=== PATIENT | female | born 1950 | race Caucasian/White ===

== ENCOUNTER 2018-11-15 14:10 | Emergency (ER) | payer MEDICARE ==
--- NOTE | 2018-11-15 15:17 | ER Document Report ---
ED Medical Screen (RME) - General Chief Complaint: Fall Injury Stated Complaint: FALL/HEAD INJURY Time Seen by Provider: 11/15/18 15:06 Notes: Patient is a 68-year-old female presents to the emergency department after a syncopal episode. Patient states she feels as though her sugar was dropping. States she did take her glucose tablets and was attempting to go eat lunch. States when she stood she felt very lightheaded and dizzy. States she did have a complete syncopal episode lasting "only a couple of seconds." Patient states she was at [facility] when this happened and a coworker states she did hit the left side of her head when she fell from standing height onto tile ground. Patient states staff gave her orange juice and some crackers. States she did take her blood sugar and it was 144. States she attempted to go to her primary care doctor who told her to come to the emergency room. Patient is denying any chest pain or shortness of breath. States she feels as though she needs to eat something because she feels very weak. Accu-Chek ordered. GENERAL: Alert, interacts well. No acute distress. HEAD: Normocephalic, atraumatic. NECK: Full range of motion. Supple. Trachea midline. No cervical midline tenderness noted I have greeted and performed a rapid initial assessment of this patient. A comprehensive ED assessment and evaluation of the patient, analysis of test results and completion of the medical decision making process will be conducted by additional ED providers. I have specifically instructed the patient or family members with the patient to immediately return to any nursing staff should anything change in the patient's condition or with their chief complaint. This medical record was dictated with voice recognizing software. There may be grammatical, syntax errors that are unintended. TRAVEL OUTSIDE OF THE [place] IN LAST 30 DAYS: No - Related Data Allergies/Adverse Reactions: No Known Allergies Allergy (Verified 11/15/18 14:11) Past Medical History - Social History Frequency of alcohol use: None Drug Abuse: None - Past Medical History Cardiac Medical History: Reports: Hx Hypertension Endocrine Medical History: Reports: Hx Diabetes Mellitus Type 2 Renal/ Medical History: Denies: Hx Peritoneal Dialysis Past Surgical History: Reports: Hx Hysterectomy, Hx Orthopedic Surgery Physical Exam - Vital signs Vitals: Temp Pulse Resp BP Pulse Ox 98.3 F 74 16 198/64 H 96 11/15/18 14:18 11/15/18 14:18 11/15/18 14:18 11/15/18 14:18 11/15/18 14:18 Course - Vital Signs Vital signs: Temp Pulse Resp BP Pulse Ox 98.3 F 74 16 198/64 H 96 11/15/18 14:18 11/15/18 14:18 11/15/18 14:18 11/15/18 14:18 11/15/18 14:18
--- NOTE | 2018-11-15 15:56 | RADIOLOGY REPORT (SQ) ---
EXAM DESCRIPTION: CT HEAD WITHOUT COMPLETED DATE/TIME: 11/15/2018 3:46 pm REASON FOR STUDY: fall COMPARISON: None. TECHNIQUE: Axial images acquired through the brain without intravenous contrast. Images reviewed wi th bone, brain and subdural windows. Additional sagittal and coronal reconstructions were generated. Images stored on PACS. All CT scanners at this facility use dose modulation, iterative reconstruction, and/or weight based d osing when appropriate to reduce radiation dose to as low as reasonably achievable (ALARA). [facility]: Dose Right [facility]: CareDose [facility]: Dose Right [facility]: Teradose 4D [facility]: Sportsy RADIATION DOSE: CT Rad equipment meets quality standard of care and radiation dose reduction techniq ues were employed. CTDIvol: 53.2 mGy. DLP: 937 mGy-cm. mGy. LIMITATIONS: None. FINDINGS: VENTRICLES: Normal size and contour. CEREBRUM: No masses. No hemorrhage. No midline shift. No evidence for acute infarction. Normal gra y/white matter differentiation. Trace periventricular hypoattenuation likely represents early chroni c microvascular ischemic injuries. CEREBELLUM: No masses. No hemorrhage. No alteration of density. No evidence for acute infarction. EXTRAAXIAL SPACES: No fluid collections. No masses. ORBITS AND GLOBE: No intra- or extraconal masses. Normal contour of globe without masses. CALVARIUM: No fracture. PARANASAL SINUSES: No fluid or mucosal thickening. SOFT TISSUES: No mass or hematoma. OTHER: Atherosclerotic vascular calcifications are seen within the cavernous segments of the internal carotid arteries. IMPRESSION: No evidence of calvarial injury or intracranial hemorrhage. Likely early microvascular ischemic injury. EVIDENCE OF ACUTE STROKE: NO. COMMENT: Quality ID # [id number]: Final reports with documentation of one or more dose reduction techniques (e.g., Automated exposure control, adjustment of the mA and/or kV according to patient size, use of iterative reconstruction technique) TECHNICAL DOCUMENTATION: JOB ID: [id number] [employer]- All Rights Reserved Reading location - IP/workstation name: [email or web address]
--- NOTE | 2018-11-15 15:58 | RADIOLOGY REPORT (SQ) ---
EXAM DESCRIPTION: CT CERVICAL SPINE WITHOUT COMPLETED DATE/TIME: 11/15/2018 3:46 pm REASON FOR STUDY: fall COMPARISON: None. TECHNIQUE: Axial images acquired through the cervical spine without intravenous contrast. Images re viewed with lung, soft tissue and bone windows. Reconstructed coronal and sagittal MPR images review ed. Images stored on PACS. All CT scanners at this facility use dose modulation, iterative reconstruction, and/or weight based d osing when appropriate to reduce radiation dose to as low as reasonably achievable (ALARA). [facility]: Dose Right [facility]: CareDose [facility]: Dose Right [facility]: Teradose 4D [facility]: [employer] RADIATION DOSE: CT Rad equipment meets quality standard of care and radiation dose reduction techniq ues were employed. CTDIvol: 16.3 mGy. DLP: 323 mGy-cm. mGy. LIMITATIONS: None. FINDINGS: ALIGNMENT: Anatomic. MINERALIZATION: Normal. VERTEBRAL BODIES: No fractures or dislocation. Mild uncovertebral hypertrophy is seen predominantly at the C4/5 and C6/7 levels. DISCS: Trace marginal osteophytes are seen without significant loss of intervertebral disc height. FACETS, LATERAL MASSES, POSTERIOR ELEMENTS: No fractures. No dislocation. No acute findings. HARDWARE: None in the spine. VISUALIZED RIBS: No fractures. LUNG APICES AND SOFT TISSUES: No significant or acute findings. OTHER: No other significant finding. IMPRESSION: No evidence of acute osseous injury. Trace multilevel spondylotic changes. TECHNICAL DOCUMENTATION: JOB ID: [id number] Quality ID # [id number]: Final reports with documentation of one or more dose reduction techniques (e.g., Au tomated exposure control, adjustment of the mA and/or kV according to patient size, use of iterative reconstruction technique) 2010 [employer]- All Rights Reserved Reading location - IP/workstation name: [email or web address]
[2018-11-15 16:31] LABS: ABSOLUTE BASOPHILS # (AUTO) 0.1 10^3/uL (0.0-0.2); ABSOLUTE EOSINOPHILS # (AUTO) 0.2 10^3/uL (0.0-0.6); ABSOLUTE LYMPHOCYTES (AUTO) 4.2 10^3/uL (0.5-4.7); ABSOLUTE MONOCYTES (AUTO) 0.6 10^3/uL (0.1-1.4); ABSOLUTE NEUT (AUTO) 7.5 10^3/uL (1.7-8.2); BASOPHILS % (AUTO) 0.6 % (0-2); EOSINOPHILS % (AUTO) 1.8 % (0-6); HEMATOCRIT 36.9 % (36.0-47.0); HEMOGLOBIN 12.3 g/dL (12.0-15.5); LYMPHOCYTES % (AUTO) 33.2 % (13-45); MEAN CORPUSCULAR HEMOGLOBIN 31.9 pg (27.0-33.4); MEAN CORPUSCULAR HGB CONC 33.4 g/dL (32.0-36.0); MEAN CORPUSCULAR VOLUME 96 fl (80-97); MONOCYTES % (AUTO) 4.8 % (3-13); PLATELET COUNT 206 10^3/uL (150-450); RED BLOOD COUNT 3.86 10^6/uL (3.72-5.28); RED CELL DISTRIBUTION WIDTH 13.5 % (11.5-14.0); SEGMENTED NEUTROPHILS % (AUTO) 59.6 % (42-78); TOTAL CELLS COUNTED % (AUTO) 100 %; WHITE BLOOD COUNT 12.6 10^3/uL (4.0-10.5)
[2018-11-15 16:46] LABS: ALANINE AMINOTRANSFERASE 36 U/L (9-52); ALBUMIN 4.7 g/dL (3.5-5.0); ALKALINE PHOSPHATASE 71 U/L (38-126); ANION GAP 7 (5-19); ASPARTATE AMINO TRANSFERASE 32 U/L (14-36); BILIRUBIN,DIRECT 0.3 mg/dL (0.0-0.4); BILIRUBIN,TOTAL 0.4 mg/dL (0.2-1.3); BLOOD UREA NITROGEN 17 mg/dL (7-20); CARBON DIOXIDE 29 mmol/L (22-30); CHLORIDE 102 mmol/L (98-107); POTASSIUM 4.4 mmol/L (3.6-5.0); SODIUM 138.2 mmol/L (137-145); TOTAL PROTEIN 7.6 g/dL (6.3-8.2)
[2018-11-15 16:50] LABS: GLUCOSE 56 mg/dL (75-110)
[2018-11-15 17:30] LABS: APPEARANCE,URINE CLEAR; BILIRUBIN,URINE NEGATIVE (NEGATIVE); COLOR,URINE COLORLESS; GLUCOSE, URINE NEGATIVE (NEGATIVE); KETONES,URINE NEGATIVE (NEGATIVE); LEUKOCYTE ESTERASE,URINE NEGATIVE (NEGATIVE); NITRITE,URINE NEGATIVE (NEGATIVE); PROTEIN,URINE NEGATIVE (NEGATIVE); URINE SPECIFIC GRAVITY 1.004; UROBILINOGEN,URINE NEGATIVE mg/dL (<2.0)
--- NOTE | 2018-11-15 18:11 | ER Document Report ---
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 She took a glucose tablet. But then passed out. The patient came back to and was given orange juice and peanut butter cups and food and blood sugar is come up the patient thinks she may have hit her head. She was brought in for evaluation blood sugar still little low here we did give her food and she is feeling better denies chest pain denies shortness of breath denies headache denies extremity numbness tingling or weakness. TRAVEL OUTSIDE OF THE [place] IN LAST 30 DAYS: No - Related Data Allergies/Adverse Reactions: No Known Allergies Allergy (Verified 11/15/18 14:11) Past Medical History - Social History Smoking Status: Current Every Day Smoker Frequency of alcohol use: None Drug Abuse: None Family History: None Patient has suicidal ideation: No Patient has homicidal ideation: No - Past Medical History Cardiac Medical History: Reports: Hx Hypertension Endocrine Medical History: Reports: Hx Diabetes Mellitus Type 2 Renal/ Medical History: Denies: Hx Peritoneal Dialysis Past Surgical History: Reports: Hx Hysterectomy, Hx Orthopedic Surgery Review of Systems - Review of Systems Constitutional: denies: Chills, Fever Cardiovascular: Syncope. denies: Chest pain, Dyspnea, Edema Gastrointestinal: denies: Abdominal pain, Nausea, Vomiting Genitourinary: denies: Dysuria Musculoskeletal: denies: Muscle stiffness Neurological/Psychological: denies: Headaches, Tingling -: Yes All other systems reviewed and negative Physical Exam - Vital signs Vitals: Temp Pulse Resp BP Pulse Ox 98.3 F 74 16 198/64 H 96 11/15/18 14:18 11/15/18 14:18 11/15/18 14:18 11/15/18 14:18 11/15/18 14:18 - Notes Notes: GENERAL_APPEARANCE: well_nourished, alert, cooperative, no_acute_distress, no_obvious_discomfort. VITALS: reviewed, see vital signs table. HEAD: Left occiput no obvious hematoma but tender to touch no depressions EYES: PERRL, EOMI, conjunctiva_clear. NOSE: no_nasal_discharge. MOUTH: (-)decreased moisture. THROAT: no_tonsilar_inflammation, no_airway_obstruction. no_lymphadenopathy NECK: supple, no_neck_tenderness, (-)thyromegaly. BACK: no_back_tenderness. CHEST_WALL: no_chest_tenderness. LUNGS: no_wheezing, no_rales, no_rhonchi, (-)accessory muscle use, good air exchange bilateral. HEART: normal_rate, normal_rhythm, normal_S1, normal_S2, (-)S3, (-)S4, no_murmur, no_rub. ABDOMEN: normal_BS, soft, no_abd_tenderness, (-)guarding, (-)rebound, no _organomegaly, no_abd_masses. EXTREMITIES: good pulses in all_extremities, no_swelling\tenderness in the extremities, no_edema. SKIN: warm, dry, good_color, no_rash. MENTAL_STATUS: speech_clear, oriented_X_3, normal_affect, responds_appropriately to questions. NEURO: Neg Motor or Sensory Deficits on exam, CN 2-12 intact, DTR 2+ symmetric x 4, No cerbellar signs Course - Re-evaluation Re-evalutation: 11/15/18 18:09 Patient was brought in for an episode of syncope after low blood sugar. Her blood sugars up it was a little low here and we fed her and she is doing well. She is feeling better asking to go home we did scan her head neck and it was negative. Blood work other than a low blood sugar is negative there is no signs of any secondary infections. Patient states she has an appointment coming up next week with her primary she wants to go home she is noticed her blood pressure been a little high but that does not bother her. We spoke at length and she is very comfortable going home. - Vital Signs Vital signs: Temp Pulse Resp BP Pulse Ox 98.3 F 74 16 198/64 H 96 11/15/18 14:18 11/15/18 14:18 11/15/18 14:18 11/15/18 14:18 11/15/18 14:18 - Laboratory Result Diagrams: 11/15/18 15:50 11/15/18 15:50 Laboratory results interpreted by me: 11/15/18 11/15/18 15:50 15:50 WBC 12.6 H Glucose 56 L - Diagnostic Test Radiology reviewed: Reports reviewed Radiology results interpreted by me: 11/15/18 18:[address] 11/15/18 15:14 IMPRESSION: No evidence of acute osseous injury. Trace multilevel spondylotic changes. Head CT 11/15/18 15:14 IMPRESSION: No evidence of calvarial injury or intracranial hemorrhage. Likely early microvascular ischemic injury. EVIDENCE OF ACUTE STROKE: NO. - EKG Interpretation by [facility] EKG shows normal: Sinus rhythm Rate: Normal Rhythm: NSR Discharge - Discharge Clinical Impression: Hypoglycemia Syncope Qualifiers: Syncope type: unspecified Qualified Code(s): R55 - Syncope and collapse Disposition: HOME, SELF-CARE Instructions: Hypoglycemia Diet ([facility]), Hypoglycemia ([facility]), Head Injury Precauti ons ([facility]) Referrals: TINA BOYKIN FNP [Primary Care Provider] - Follow up as needed
[2018-11-15 18:31] VITALS: BP 191/57
--- NOTE | 2018-11-16 09:31 | EKG REPORT ---
SEVERITY:- BORDERLINE ECG - SINUS RHYTHM BORDERLINE T WAVE ABNORMALITIES : Confirmed by: Theresa Ayon MD 16-Nov-2018 09:30:40
== END 2018-11-15 18:25 | disposition home or self-care (01) ==
LOC: ER 14:10
DX: E11.649 Type 2 diabetes mellitus with hypoglycemia without coma (principal); R55 Syncope and collapse; F17.200 Nicotine dependence, unspecified, uncomplicated; I10 Essential (primary) hypertension
CPT/HCPCS: 36415; 70450; 72125; 80053; 81001; 82962; 84484; 85025; 93005; 93010; 99284

== ENCOUNTER 2019-09-09 14:52 | Inpatient (IN) | payer MEDICARE ==
[~2019-09-09 14:52] MED LIST: ROCURONIUM BROMIDE INJ 50 MG/5 ML VIAL IV ONE
[2019-09-09] MEDS ORDERED: ONDANSETRON HCL INJ/PF 4 MG/2 ML SDV IV ONE (15:00)
[2019-09-09] MEDS ORDERED: NORMAL SALINE 1000 ML 1,000 ML IV ONE (15:00)
--- NOTE | 2019-09-09 15:02 | ER Document Report ---
ED Medical Screen (RME) - General Stated Complaint: VOMITTING Time Seen by Provider: 09/09/19 14:57 Primary Care Provider: TINA BOYKIN FNP [Primary Care Provider] - Follow up as needed Mode of Arrival: Wheelchair Information source: Patient Notes: 69-year-old female patient presents emergency department chief complaint of epigastric pain with vomiting. Patient reports symptoms ongoing for the last 3 days. She reports that she has not had any diarrhea or fever. No recent travel or exposure to COVID-19 patients. Patient states she went to see the title department manager this morning, he scheduled her for an endoscopy next week but told her to come to the emergency department today. Patient is calm, cooperative, appears mildly uncomfortable. I have greeted and performed a rapid initial assessment of this patient. A comprehensive ED assessment and evaluation of the patient, analysis of test results and completion of the medical decision making process will be conducted by additional ED providers. I have specifically instructed the patient or family members with the patient to immediately return to any nursing staff should anything change in the patient's condition or with their chief complaint. TRAVEL OUTSIDE OF THE [place] IN LAST 30 DAYS: No - Related Data Allergies/Adverse Reactions: No Known Allergies Allergy (Verified 11/15/18 14:11) Past Medical History - Past Medical History Cardiac Medical History: Reports: Hx Hypertension Endocrine Medical History: Reports: Hx Diabetes Mellitus Type 2 Renal/ Medical History: Denies: Hx Peritoneal Dialysis Past Surgical History: Reports: Hx Hysterectomy, Hx Orthopedic Surgery Doctor's Discharge - Discharge Referrals: TINA BOYKIN FNP [Primary Care Provider] - Follow up as needed
--- NOTE | 2019-09-09 15:15 | ER Document Report ---
ED General - General Chief Complaint: Nausea/Vomiting Stated Complaint: VOMITTING Time Seen by Provider: 09/09/19 14:57 Mode of Arrival: Wheelchair Information source: Patient TRAVEL OUTSIDE OF THE [place] IN LAST 30 DAYS: No - HPI Onset: Other - 4-5 days ago Onset/Duration: Gradual Quality of pain: Fullness, Sharp Severity: Severe Associated symptoms: Nausea, Vomiting Exacerbated by: Food Relieved by: Denies Similar symptoms previously: No Recently seen / treated by doctor: Yes - patient had a virtual GI appointment today Notes: 69 year old female with a history of Symptomatic Bradycardia s/p Pacemaker, HTN, DM here in the ER for epigastric and RUQ abdominal pain for the last 4-5 days with associated nausea and vomiting. The patient says food of any kind makes the pain worse. The patient had a virtual appointment with a GI Doctor today and she apparently is going to have an endoscopy next week. The patient says she has been using Aleve to try and help her pain but she hasnt gotten much relief. The patient has noticed black stools over the last several days but no black colored vomit. - Related Data Allergies/Adverse Reactions: No Known Allergies Allergy (Verified 09/09/19 15:02) Past Medical History - General Information source: Patient - Social History Smoking Status: Current Every Day Smoker Chew tobacco use (# tins/day): No Frequency of alcohol use: None Drug Abuse: None Family History: None Patient has suicidal ideation: No Patient has homicidal ideation: No - Past Medical History Cardiac Medical History: Reports: Hx Hypertension Endocrine Medical History: Reports: Hx Diabetes Mellitus Type 2 Renal/ Medical History: Denies: Hx Peritoneal Dialysis Past Surgical History: Reports: Hx Hysterectomy, Hx Orthopedic Surgery Review of Systems - Review of Systems Constitutional: No symptoms reported EENT: No symptoms reported Cardiovascular: No symptoms reported Respiratory: No symptoms reported Gastrointestinal: Abdominal pain, Nausea, Vomiting, Black stools Genitourinary: No symptoms reported Female Genitourinary: No symptoms reported Musculoskeletal: No symptoms reported Skin: No symptoms reported Hematologic/Lymphatic: No symptoms reported Neurological/Psychological: No symptoms reported -: Yes All other systems reviewed and negative Physical Exam - Vital signs Vitals: Temp Pulse Resp BP Pulse Ox 97.9 F 98 17 117/101 H 100 09/09/19 15:02 09/09/19 15:02 09/09/19 15:02 09/09/19 15:02 09/09/19 15:02 - Notes Notes: GENERAL: Well-appearing, well-nourished and in no acute distress. HEAD: Atraumatic, normocephalic. EYES: Pupils equal round and reactive to light, extraocular movements intact, sclera anicteric, conjunctiva are normal. ENT: External ears normal in appearance, nares patent, oropharynx clear without exudates. Moist mucous membranes. NECK: Normal range of motion, supple without lymphadenopathy or JVD. LUNGS: Breath sounds clear to auscultation bilaterally and equal. No wheezes rales or rhonchi. HEART: Regular rate and rhythm without murmurs, rubs or gallops. ABDOMEN: Soft, moderate epigastric tenderness, mild RUQ tenderness, normoactive bowel sounds. No guarding, no rebound. No masses appreciated. EXTREMITIES: Normal range of motion, no pitting or edema. No clubbing or cyan osis. NEUROLOGICAL: Cranial nerves II through XII grossly intact. Normal speech, normal gait. PSYCH: Normal mood, normal affect. SKIN: Warm, Dry, normal turgor, no rashes or lesions noted. Course - Re-evaluation Re-evalutation: 09/09/19 16:42 The patient came to the ER for significant epigastric pain. Her hemoglobin is 6.0 when it was 12 a year ago. She is also having black colored stools. The patient likely has an Ulcer with an upper GI Bleed. Dr. Garnica or General Surgery was consulted and he will see the patient in the ER. Dr. Johnston would like the patient to have an NG tube placed and to have 1L of lavage. Will also start patient on Protonix and transfuse blood. Plan for admission to Hospitalist. 09/09/19 17:01 The patient is short of breath and she will destat with minor exertion. Patient is still having epigastric abdominal pain. Dr. Johnston is at the bedside and he would like one of the units of blood that was previously ordered be immediate release blood due to patient's increased work of breathing. Will also order an EKG and Trop although this pain is likely to be from an ulcer/GERD/esophagitis 09/09/19 17:40 Patient had a stat chest xray showing diffuse (worse on right) pulmonary disease. Patient becoming hypertensive as well. Seem like patient could have had flash pulmonary edema. EKG shows a paced rhythm. NSTEMI also possible. COVID had no previously been thought of as a diagnosis given she came to the ER for abdominal pain. Patient's breathing has been worsening despite getting emergency release blood x 2 units. 09/09/19 18:06 Dr. Dawn of the ICU is in the ER and he is concerned the patient has an atypical presentation of COVID. Dr. Dawn is going to intubate the patient here in the ER. Patient will be admitted to the ICU. Care is still ongoing. This would be a very atypicla presentation of COVID given the patient has been having epigastric pain for 4-5 days and she came to the ER for epigastric pain along with nausea and vomiting and she endorsed black stools and she was found to be severely anemic. 09/09/19 19:00 Patient's Trop came back elevated at 2.8 and her BNP is in the 6000s. Patient seems like she had a coronary event and flash pulmonary edema. Patient is going to get a CTA abd/pelvis to look for an upper GI bleed distal to the duodenum. Dr. Dawn is admitting the patient to the ICU still. Patient unlikely has a primary cardiac event although she has a paced rhythm so her EKG is not of much use. - Vital Signs Vital signs: Temp Pulse Resp BP Pulse Ox 97.9 F 98 19 117/101 H 94 09/09/19 15:02 09/09/19 15:02 09/09/19 18:05 09/09/19 15:02 09/09/19 18:05 - Laboratory Result Diagrams: 09/09/19 15:52 09/09/19 15:52 Laboratory results interpreted by me: 09/09/19 09/09/19 09/09/19 15:52 15:52 16:39 WBC 17.4 H RBC 2.27 L Hgb 6.0 L Hct 18.6 L MCH 26.5 L RDW 17.8 H Lymph % (Auto) 10.4 L Absolute Neuts (auto) 14.8 H Seg Neutrophils % 84.8 H Carbonic Acid ABG pH ABG pCO2 ABG pO2 ABG HCO3 ABG Total CO2 ABG O2 Saturation Sodium 129.3 L Chloride 91 L BUN 30 H Est GFR ( Amer) 52 L Est GFR (MDRD) Non-Af 43 L Glucose 115 H Lactic Acid AST 50 H C-Reactive Protein NT-Pro-B Natriuret Pep Crossmatch See Detail 09/09/19 09/09/19 09/09/19 17:51 17:51 17:51 WBC RBC Hgb Hct MCH RDW Lymph % (Auto) Absolute Neuts (auto) Seg Neutrophils % Carbonic Acid ABG pH ABG pCO2 ABG pO2 ABG HCO3 ABG Total CO2 ABG O2 Saturation Sodium Chloride BUN Est GFR ( Amer) Est GFR (MDRD) Non-Af Glucose Lactic Acid 12.7 H AST C-Reactive Protein 11.6 H NT-Pro-B Natriuret Pep 6880 H Crossmatch 09/09/19 17:51 WBC RBC Hgb Hct MCH RDW Lymph % (Auto) Absolute Neuts (auto) Seg Neutrophils % Carbonic Acid 1.65 H ABG pH 7.02 L* ABG pCO2 54.7 H ABG pO2 166.7 H ABG HCO3 13.8 L ABG Total CO2 15.5 L ABG O2 Saturation 98.2 H Sodium Chloride BUN Est GFR ( Amer) Est GFR (MDRD) Non-Af Glucose Lactic Acid AST C-Reactive Protein NT-Pro-B Natriuret Pep Crossmatch - Diagnostic Test Radiology reviewed: Image reviewed, Reports reviewed - EKG Interpretation by Md EKG shows normal: [place] Rate: Normal Rhythm: Other - Paced Additional EKG results interpreted by me: 09/09/19 19:02 EKG shows paced rhythm Critical Care Note - Critical Care Note Total time excluding time spent on procedures (mins): 75 Discharge - Discharge Clinical Impression: Epigastric abdominal pain, Hypoxemia GI bleed Qualifiers: GI bleed type/associated pathology: unspecified gastrointestinal hemorrhage type Qualified Code(s): K92.2 - Gastrointestinal hemorrhage, unspecified Anemia Qualifiers: Anemia type: unspecified type Qualified Code(s): D64.9 - Anemia, unspecified Condition: Critical Disposition: ADMITTED INPATIENT Admitting Provider: Matty (Vice President [employer]) Unit Admitted: ICU
[2019-09-09] MEDS ORDERED: KETOROLAC TROMETHAMINE INJ/PF 30 MG/1 ML SDV IV ONE (15:46)
[2019-09-09 16:03] LABS: ABSOLUTE BASOPHILS # (AUTO) 0.1 10^3/uL (0.0-0.2); ABSOLUTE LYMPHOCYTES (AUTO) 1.8 10^3/uL (0.5-4.7); ABSOLUTE MONOCYTES (AUTO) 0.7 10^3/uL (0.1-1.4); ABSOLUTE NEUT (AUTO) 14.8 10^3/uL (1.7-8.2); BASOPHILS % (AUTO) 0.4 % (0-2); EOSINOPHILS % (AUTO) 0.1 % (0-6); HEMATOCRIT 18.6 % (36.0-47.0); LYMPHOCYTES % (AUTO) 10.4 % (13-45); MEAN CORPUSCULAR HEMOGLOBIN 26.5 pg (27.0-33.4); MEAN CORPUSCULAR HGB CONC 32.4 g/dL (32.0-36.0); MEAN CORPUSCULAR VOLUME 82 fl (80-97); MONOCYTES % (AUTO) 4.3 % (3-13); PLATELET COUNT 420 10^3/uL (150-450); RED BLOOD COUNT 2.27 10^6/uL (3.72-5.28); RED CELL DISTRIBUTION WIDTH 17.8 % (11.5-14.0); SEGMENTED NEUTROPHILS % (AUTO) 84.8 % (42-78); TOTAL CELLS COUNTED % (AUTO) 100 %; WHITE BLOOD COUNT 17.4 10^3/uL (4.0-10.5)
[2019-09-09 16:18] LABS: ALBUMIN 4.4 g/dL (3.5-5.0); ALKALINE PHOSPHATASE 79 U/L (38-126); ANION GAP 13 (5-19); ASPARTATE AMINO TRANSFERASE 50 U/L (14-36); BILIRUBIN,TOTAL 0.5 mg/dL (0.2-1.3); BLOOD UREA NITROGEN 30 mg/dL (7-20); CALCIUM 9.2 mg/dL (8.4-10.2); CARBON DIOXIDE 25 mmol/L (22-30); CHLORIDE 91 mmol/L (98-107); GLUCOSE 115 mg/dL (75-110); TOTAL PROTEIN 7.1 g/dL (6.3-8.2)
[2019-09-09] MEDS ORDERED: NORMAL SALINE 250 ML IV PRN ×2 (16:21→17:50)
[2019-09-09] MEDS ORDERED: PANTOPRAZOLE SODIUM 40 MG VIAL IV ONE (16:24)
--- NOTE | 2019-09-09 16:29 | RADIOLOGY REPORT (SQ) ---
EXAM DESCRIPTION: U/S ABDOMEN LIMITED W/O DOP IMAGES COMPLETED DATE/TIME: 09/09/2019 4:20 pm REASON FOR STUDY: rule out cholecystitis. pain in RUQ and epigastric COMPARISON: None. TECHNIQUE: Dynamic and static grayscale images acquired of the abdomen and recorded on PACS. Additio nal selected color Doppler and spectral images recorded. LIMITATIONS: None. FINDINGS: PANCREAS: No masses. Visualized pancreatic duct normal caliber. LIVER: No masses. Echotexture normal. LIVER VASCULATURE: Normal directional flow of the main portal vein and hepatic veins. GALLBLADDER: No stones. Normal wall thickness. No pericholecystic fluid. ULTRASOUND-DETECTED CROWLEY'S SIGN: Negative. INTRAHEPATIC DUCTS AND COMMON DUCT: CBD and intrahepatic ducts normal caliber. No filling defects. AORTA: VISUALIZED PORTIONS THE ABDOMINAL AORTA ARE NORMAL IN CALIBER. RIGHT KIDNEY: Normal size. Normal echogenicity. No solid or suspicious masses. No hydronephrosis. No calcifications. PERITONEAL AND RIGHT PLEURAL SPACE: No ascites or effusions. OTHER: No other significant findings. IMPRESSION: NORMAL RIGHT UPPER QUADRANT ULTRASOUND. TECHNICAL DOCUMENTATION: JOB ID: [id number] [employer]- All Rights Reserved Reading location - IP/workstation name: [email or web address]
[2019-09-09] MEDS: PANTOPRAZOLE SODIUM 40 MG VIAL IV PRN (17:12)
--- NOTE | 2019-09-09 17:22 | RADIOLOGY REPORT (SQ) ---
EXAM DESCRIPTION: KUB/ABDOMEN (SINGLE VIEW) IMAGES COMPLETED DATE/TIME: 09/09/2019 5:04 pm REASON FOR STUDY: post NG tube to check for placement COMPARISON: None. NUMBER OF VIEWS: One view. TECHNIQUE: Supine radiographic image of the abdomen acquired. LIMITATIONS: None. FINDINGS: BOWEL GAS PATTERN: Normal bowel gas pattern. No dilated loops. CALCIFICATIONS: No suspicious calcifications. SOFT TISSUES: No gross mass or suggestion of organomegaly. HARDWARE: Nasogastric tube tip is in the stomach. Coiled in the fundus. BONES: No acute fracture. No worrisome bone lesions. OTHER: No other significant finding. IMPRESSION: Nasogastric tube tip is in the stomach. TECHNICAL DOCUMENTATION: JOB ID: [id number] 2010 [employer]- All Rights Reserved Reading location - IP/workstation name: [email or web address]
[2019-09-09 17:32] LABS: PROTHROMBIN TIME 15.3 SEC (11.4-15.4)
[2019-09-09] MEDS ORDERED: ETOMIDATE INJ/PF 20 MG/10 ML SDV IV ONE ×3 (17:35→18:19)
--- NOTE | 2019-09-09 17:56 | RADIOLOGY REPORT (SQ) ---
EXAM DESCRIPTION: CHEST SINGLE VIEW IMAGES COMPLETED DATE/TIME: 09/09/2019 5:43 pm REASON FOR STUDY: dyspnea COMPARISON: None. EXAM PARAMETERS: NUMBER OF VIEWS: One view. TECHNIQUE: Single frontal radiographic view of the chest acquired. RADIATION DOSE: NA LIMITATIONS: None. FINDINGS: LUNGS AND PLEURA: Prominent interstitial markings in the lungs, may be on the basis of ed chester. In the right infrahilar region, increased airspace disease may represent infiltrate. No pneumo thorax. Trace pleural effusions may be present. MEDIASTINUM AND HILAR STRUCTURES: No masses. Contour normal. HEART AND VASCULAR STRUCTURES: Cardiomegaly and pulmonary vascular congestion. BONES: No acute findings. HARDWARE: Cardiac back pacemaker. Nasogastric tube, the tip overlies the stomach. OTHER: No other significant finding. IMPRESSION: 1. Cardiomegaly and pulmonary vascular congestion. Mild prominence of the interstitial markings in the lungs may be on the basis of edema. 2. In the right infrahilar region, increased airspace disease may represent infiltrate. TECHNICAL DOCUMENTATION: JOB ID: [id number] 2010 [employer]- All Rights Reserved Reading location - IP/workstation name: [email or web address]
[2019-09-09] MEDS ORDERED: FENTANYL CITRATE INJ/PF 100 MCG/2 ML AMPUL ONE (17:58)
[2019-09-09] MEDS ORDERED: ROCURONIUM BROMIDE INJ 50 MG/5 ML VIAL IV ONE (18:19)
[2019-09-09] MEDS ORDERED: SUCCINYLCHOLINE CHLORIDE INJ 200 MG/10 ML VIAL IV ONE (18:20)
[2019-09-09] MEDS ORDERED: FENTANYL CITRATE INJ/PF 100 MCG/2 ML AMPUL IV ONE (18:21)
[2019-09-09] MEDS ORDERED: LORAZEPAM INJ 2 MG/1 ML VIAL IV ONE (18:32)
[2019-09-09] MEDS ORDERED: PROPOFOL 1,000 MG/100 ML INFUS..BTL IV PRN (18:33)
[2019-09-09 18:37] LABS: C-REACTIVE PROTEIN 11.6 mg/L (<10.0)
[2019-09-09 18:50] LABS: ARTERIAL BLOOD BASE EXCESS -16.4 mmol/L; ARTERIAL BLOOD H2CO3 1.65 mmol/L (1.05-1.35); ARTERIAL BLOOD HCO3 13.8 mmol/L (20-24); ARTERIAL BLOOD O2 SATURATION 98.2 % (94-98); ARTERIAL BLOOD PCO2 54.7 mmHg (35-45); ARTERIAL BLOOD PO2 166.7 mmHg (80-100); ARTERIAL BLOOD TOTAL CO2 15.5 mmol/L (21-25)
[2019-09-09 18:52] LABS: ARTERIAL BLOOD FIO2 100%
[2019-09-09 18:53] LABS: ARTERIAL BLOOD PH 7.02 (7.35-7.45); TROPONIN I 2.86 ng/mL
[2019-09-09 19:09] LABS: FERRITIN 6.93 ng/mL (11.1-264.0)
[2019-09-09] MEDS ORDERED: SODIUM BICARBONATE 8.4% INJ 50 MEQ/50 ML DISP.SYRIN IV ONE ×2 (19:12)
--- NOTE | 2019-09-09 19:29 | PDOC CONSULTATION ---
Consultation Consult Date: 09/09/19 Provider Consulted: SURGICAL SURGICALIST Consult reason:: Anemia, melena, possible upper GI bleeding History of Present Illness Admission Date/PCP: 09/09/19 18:04 EVA SIM PA-C Patient complains of: Abdominal pain, shortness of breath History of Present Illness: GIN OLIVEROS is a 69 year old female seen in consultation at the request of the emergency room physician. The patient reported to the emergency department with a 1 day history of upper abdominal pain, in the epigastric region. She reports episodes of vomiting at home, without akua blood or coffee ground emesis. The patient reports melanotic stools over the last 2 to 3 days. Her abdominal pain is situated in the epigastrium, it waxes/wanes, and it has pro gressed over the last several days. Her pain radiates through to her back. The pain is sharp in nature. Patient has a history of pacemaker placement for bradycardia. Upon my entry into the room, the patient's only complaint was shortness of breath. Her sats were in the mid 80s on nasal cannula. She was immediately switched to a nonrebreather, which improved her saturations into the 90s. Despite adequate oxygenation via nonrebreather, the patient continued complaint of shortness of breath. The patient does take nonsteroidal anti- inflammatories at home. She denies hematochezia, hematemesis, headache, fevers, chills, dizziness. She does report malaise, weakness, and the aforementioned nausea, vomiting, melanotic stool, abdominal pain, and shortness of breath. Past Medical History Cardiac Medical History: Reports: Hypertension Endocrine Medical History: Reports: Diabetes Mellitus Type 2 Past Surgical History Past Surgical History: Reports: Hysterectomy, Orthopedic Surgery Social History Smoking Status: Current Every Day Smoker Electronic Cigarette use?: No Family History Family History: None Parental Family History Reviewed: Yes Children Family History Reviewed: Yes Sibling(s) Family History Reviewed.: Yes Medication/Allergy Home Medications: Albuterol Sulfate [Albuterol Sulfate Hfa] 2 puff IH Q6HP PRN 09/09/19 Amlodipine Besylate [Norvasc 10 mg Tablet] 10 mg PO DAILY 09/09/19 Amlodipine Besylate [Norvasc 5 mg Tablet] 5 mg PO DAILY 09/09/19 Fluticasone Propionate [Flonase Nasal [place] 50 Mcg/[place] 16 gm] 1 spray NAREB DAILYP PRN 09/09/19 Furosemide [Lasix 40 mg Tablet] 40 mg PO DAILY 09/09/19 Gabapentin [Neurontin 300 mg Capsule] 300 mg PO Q8 09/09/19 Hydralazine HCl [Apresoline 50 mg Tablet] 50 mg PO Q12 09/09/19 Lisinopril 40 mg PO DAILY 09/09/19 Metformin HCl 1,000 mg PO BIDACBS 09/09/19 Omeprazole 20 mg PO BID 09/09/19 Pravastatin Sodium [Pravachol] 20 mg PO QHS 09/09/19 Zolpidem Tartrate [Ambien 5 mg Tablet] 5 mg PO HSP PRN 09/09/19 Allergies/Adverse Reactions: No Known Allergies Allergy (Verified 09/09/19 15:02) Review of Systems Constitutional: PRESENT: fatigue. ABSENT: anorexia, chills, fever(s), headache(s) Eyes: ABSENT: visual disturbances Ears: ABSENT: hearing changes Nose, Mouth, and Throat: ABSENT: sore throat Cardiovascular: PRESENT: dyspnea on exertion, orthropnea Respiratory: PRESENT: dyspnea. ABSENT: cough Gastrointestinal: PRESENT: abdominal pain, melena, nausea, vomiting. ABSENT: hematemesis, hematochezia Genitourinary: ABSENT: dysuria Musculoskeletal: PRESENT: back pain Integumentary: PRESENT: diaphoresis Neurological: ABSENT: confusion, convulsions, dizziness Psychiatric: PRESENT: anxiety Endocrine: ABSENT: cold intolerance, heat intolerance Hematologic/Lymphatic: ABSENT: easy bleeding, easy bruising Physical Exam Vital Signs: Temp Pulse Resp BP Pulse Ox 97.9 F 98 19 117/101 H 98 09/09/19 15:02 09/09/19 15:02 09/09/19 18:05 09/09/19 15:02 09/09/19 18:59 Intake & Output 09/08/19 09/09/19 09/10/19 06:59 06:59 06:59 Intake Total 1000 Balance 1000 Weight 66.678 kg General appearance: PRESENT: severe distress - Respiratory Head exam: PRESENT: atraumatic, normocephalic Eye exam: PRESENT: EOMI, PERRLA. ABSENT: scleral icterus Mouth exam: PRESENT: moist, neck supple Neck exam: ABSENT: meningismus, tenderness, thyromegaly, tracheal deviation Respiratory exam: PRESENT: rales, retraction, rhonchi, tachypnea. ABSENT: chest wall tenderness, unlabored Cardiovascular exam: PRESENT: tachycardia, other - Paced rhythm Vascular exam: PRESENT: pallor GI/Abdominal exam: PRESENT: soft, tenderness - Mild/moderate epigastric tenderness. No rebound tenderness, peritoneal signs, involuntary guarding. Rectal exam: PRESENT: deferred Extremities exam: ABSENT: clubbing Musculoskeletal exam: ABSENT: deformity Neurological exam: PRESENT: alert, awake, oriented to person, oriented to place, oriented to time, oriented to situation, CN II-XII grossly intact Psychiatric exam: PRESENT: agitated, anxious Focused psych exam: ABSENT: delusional Skin exam: ABSENT: jaundice Results Laboratory Results: 09/09/19 15:52 09/09/19 15:52 09/09/19 09/09/19 09/09/19 15:52 15:52 16:39 WBC 17.4 H RBC 2.27 L Hgb 6.0 L Hct 18.6 L MCV 82 MCH 26.5 L MCHC 32.4 RDW 17.8 H Plt Count 420 Seg Neutrophils % 84.8 H Carbonic Acid HCO3/H2CO3 Ratio ABG pH ABG pCO2 ABG pO2 ABG HCO3 ABG O2 Saturation ABG Base Excess FiO2 Sodium 129.3 L Potassium 5.0 Chloride 91 L Carbon Dioxide 25 Anion Gap 13 BUN 30 H Creatinine 1.23 Est GFR ( Amer) 52 L Glucose 115 H Lactic Acid Calcium 9.2 Ferritin Total Bilirubin 0.5 AST 50 H Alkaline Phosphatase 79 C-Reactive Protein Total Protein 7.1 Albumin 4.4 Lipase 104.6 Blood Type O POSITIVE Antibody Screen NEGATIVE 09/09/19 09/09/19 09/09/19 17:51 17:51 17:51 WBC RBC Hgb Hct MCV MCH MCHC RDW Plt Count Seg Neutrophils % Carbonic Acid 1.65 H HCO3/H2CO3 Ratio 8:1 ABG pH 7.02 L* ABG pCO2 54.7 H ABG pO2 166.7 H ABG HCO3 13.8 L ABG O2 Saturation 98.2 H ABG Base Excess -16.4 FiO2 100% Sodium Potassium Chloride Carbon Dioxide Anion Gap BUN Creatinine Est GFR ( Amer) Glucose Lactic Acid 12.7 H Calcium Ferritin 6.93 L Total Bilirubin AST Alkaline Phosphatase C-Reactive Protein 11.6 H Total Protein Albumin Lipase Blood Type Antibody Screen 09/09/19 17:51 Troponin I 2.860 NT-Pro-B Natriuret Pep 6880 H Impressions: Chest X-Ray 09/09/19 00:00 IMPRESSION: 1. Cardiomegaly and pulmonary vascular congestion. Mild prominence of the interstitial markings in the lungs may be on the basis of edema. 2. In the right infrahilar region, increased airspace disease may represent infiltrate. KUB X-Ray 09/09/19 00:00 IMPRESSION: Nasogastric tube tip is in the stomach. Abdomen Ultrasound 09/09/19 15:43 IMPRESSION: NORMAL RIGHT UPPER QUADRANT ULTRASOUND. Assessment & Plan - Diagnosis (1) Respiratory distress Is this a current diagnosis for this admission?: Yes (2) Anemia Qualifiers: Anemia type: unspecified type Qualified Code(s): D64.9 - Anemia, unspecified Is this a current diagnosis for this admission?: Yes (3) Epigastric abdominal pain Is this a current diagnosis for this admission?: Yes - Plan Summary Plan Summary: This is a 69-year-old female with severe anemia. The patient appears to be in respiratory distress upon my evaluation. I have alerted the ER physician to this finding. The traffic i manager Dr. Starr has been consulted. The patient is to be intubated. I have ordered 2 units of emergency blood to be given to the patient now. She does have abdominal tenderness, however she does not have an acute abdomen. An NG tube was placed by me. The NG tube was lavaged with appro ximately 3 L of cold tap water. No blood was found within the NG aspirate. At this time, it is unclear the exact cause of her respiratory distress. After the patient is intubated, and she has received blood, plan for CT angiogram of the abdomen to rule out any active bleeding in the colon or distal duodenum. This will also help to rule out other significant findings like ischemic colitis. It is possible that the patient may be having a cardiac event associated with her anemia. If this is the case, the patient will likely require transfer to another facility. Work-up is currently ongoing. I will continue to follow this patient very closely with you. Specifically, I do not see evidence of ongoing, active, life-threatening upper GI hemorrhage. No endoscopy is planned at this time. Will continue work-up.
[2019-09-09 19:52] LABS: PHOSPHORUS 9.6 mg/dL (2.5-4.5)
--- NOTE | 2019-09-09 19:54 | Operative Report ---
Bedside Procedure - History of Present Illness History of Present Illness: GIN NEGRO is a 69 year old female seen in consultation at the request of the emergency room physician. The respiratory therapist noted an unstable respiratory pattern and patient was obtunded. And the findings on chest x-ray and the unusual presentation she was intubated under SARS, 2-CoViD19 suspicious protocol Spoke with her Radha negro who stated that she had pain for approximately 4 days prior to presentation. We did not know of Radha until after the patient was intubated and a central line was placed. She was intubated secondary to coma-like state and unstable respiratory pattern. Indication for Procedure: Hypoxia with Hypercarbia Date: 09/09/19 Provider: VENKATESH SANCHEZ - Central Line Right Internal jugular Time completed: 19:53 Consent obtained: No - Emergent Central line pre-insertion: Sterile PPE donned, Chloraprep applied, Sterile drapes applied Central line lumen type: Triple Ultrasound guided: Yes CM at insertion site: 15 Line secured with sutures: Yes Central line post-insertion: Blood return from lumens, Biopatch applied, Sutured, Sterile dressing applied, Other - Wire seen in RIJ on US Number of attempts: 1 Complications: Yes
--- NOTE | 2019-09-09 20:00 | Operative Report ---
Bedside Procedure - History of Present Illness History of Present Illness: GIN NEGRO is a 69 year old female seen in consultation at the request of the emergency room physician. The respiratory therapist noted an unstable respiratory pattern and patient was obtunded. And the findings on chest x-ray and the unusual presentation she was intubated under SARS, 2-CoViD19 suspicious protocol Spoke with her Radha negro who stated that she had pain for approximately 4 days prior to presentation. We did not know of Radha until after the patient was intubated and a central line was placed. She was intubated secondary to coma-like state and unstable respiratory pattern. Procedure Endotracheal Intubation: Indication: Acute respiratory failure hypercarbic hypoxic Procedure certified solid waste facility operator: Matty [facility] Consent:Emergent Family notified after procedure was done Procedure summary: A timeout was performed. My hands were washed with pure L immediately prior to the procedure. I wore full PAPR equipment for this procedure. A and intubating clear box was placed over the patient's head. She was preoxygenated only with CPAP at and high FiO2. She was on a environmental monitoring specialist including continuous pulse oximetry. Rapid sequence intubation was induced. The patient received 100 mcg fentanyl 20 mg mg of etomidate as well as 100 mg of rocuronium for adequate paralysis. We waited for full neuromuscular blockade so as to not induce any coughing. Using a #3 glide scope and a size 7-1/2 endotracheal tube with stylette, the patient was intubated on the first attempt. The stylette was removed and the cuff balloon was inflated. Appropriate endotracheal tube position was confirmed by direct visualization of vocal cord passage, CO2 colorimetric indicator and symmetric chest rising. The tube was secured at 24 centimeters at the lips. Post intubation CT scan 2-3 centimeters above the armaan Patient tolerated procedure well No complications Rate 1 view seen on glide scope. And intubating shield was placed over the intubation box to protect healthcare personnel Indication for Procedure: Anemia with shock Date: 09/09/19 Provider: VENKATESH SANCHEZ
--- NOTE | 2019-09-09 20:05 | Progress Note ---
Provider Note Provider Note: I was called the emergency room to evaluate this patient who was in respiratory extremis. She required intubation and placement of a central line all done under SARS, 2-CoViD19 PAPR protection. A central line was placed at the same time. Unfortunately I was unable to communicate with the patient due to her obtunded status. Please see full H&P by Oracio Seay NP for details. What we have been able to ascertain that the patient has a profound lactic acidosis. Critical care ultrasound showed a reduced ejection fraction of approximately 38 to 42% with septal wall which is dyskinetic and akinetic. There was mild dilation. Her IVC was filled and not respirophasic. Did have bilateral pleural effusions left greater than right. Her Radha informs us that she has had severe abdominal pain for the last 4 days and has been unable to eat there is been nausea with vomiting. In terms have been mainly happening at night. On examination of her abdomen there was no significant a lines to suggest ruptured viscus. There is a partial pericardial effusion I am concerned that this may represent a Boerhaave's syndrome given the findings on chest x-ray. Have ordered a CT scan of chest and abdomen. Notified the patient's Radha negro at [phone]. They also have a daughter named Char Sesay phone number [phone]. The , Radha was informed to the intubation and the central line. Total CC time: 60 minutes
[2019-09-09] MEDS ORDERED: GLUCAGON,HUMAN RECOMB 1 MG INJ SUBCUT PRN (20:09)
[2019-09-09] MEDS ORDERED: DEXTROSE 50%-WATER 25 GM/50 ML DISP.SYRIN IV PRN ×2 (20:09)
[2019-09-09] MEDS ORDERED: DEXTROSE 40% GEL 15 GM TUBE PO PRN ×2 (20:09)
[2019-09-09] MEDS ORDERED: FENTANYL CITRATE INJ/PF 100 MCG/2 ML AMPUL IV PRN (20:14)
--- NOTE | 2019-09-09 20:35 | EKG REPORT ---
SEVERITY:- ABNORMAL ECG - ATRIAL-SENSED VENTRICULAR-PACED RHYTHM : Confirmed by: Denny Sandhu MD 09-Sep-2019 20:34:27
[2019-09-09 20:46] LABS: ARTERIAL BLOOD BASE EXCESS -9.7 mmol/L; ARTERIAL BLOOD H2CO3 1.19 mmol/L (1.05-1.35); ARTERIAL BLOOD HCO3 16.8 mmol/L (20-24); ARTERIAL BLOOD O2 SATURATION 99.7 % (94-98); ARTERIAL BLOOD PCO2 39.4 mmHg (35-45); ARTERIAL BLOOD PH 7.25 (7.35-7.45); ARTERIAL BLOOD PO2 349.9 mmHg (80-100)
[2019-09-09 20:53] LABS: ARTERIAL BLOOD FIO2 100%
[2019-09-09] MEDS ORDERED: MEROPENEM 500 MG in NORMAL SALINE 50 ML IV SCH (22:00)
[2019-09-09] MEDS ORDERED: MEROPENEM 1 GM in NORMAL SALINE 50 ML IV SCH (22:00)
[2019-09-09] MEDS ORDERED: MEROPENEM 500 MG VIAL IV SCH ×2 (22:00)
[2019-09-09] MEDS ORDERED: NORMAL SALINE INJ/PF 0.9% 10 ML SDV IV PRN (22:11)
--- NOTE | 2019-09-09 22:11 | RADIOLOGY REPORT (SQ) ---
EXAM DESCRIPTION: CT angiogram of the chest CLINICAL HISTORY: 69 years Female; esophageal epigastric pain. GI bleed. TECHNIQUE: CT angiogram of the chest using intravenous contrast.. MIP reconstructions were performed. All CT scans at this facility use dose modulation, iterative reconstruction, and/or weight based dosing when appropriate to reduce radiation dose to as low as reasonably achievable. COMPARISON: None. FINDINGS: Chest: Vascular: Pulmonary arteries are well opacified and there is no evidence of filling defects to suggest pulmonary embolism. Thoracic aorta is of normal caliber. There is scattered vascular calcifications. No aneurysm or dissection. Venous catheter enters via the right internal jugular vein and terminates in the superior vena cava. Lungs: Moderate bilateral pleural effusions are noted. Diffuse groundglass opacification is present which is most pronounced layering posteriorly and along the fissures. There is more focal consolidation with air bronchograms in the lower lobes. There are subtle nodular areas of groundglass opacity seen scattered throughout the lung parenchyma bilaterally. No pneumothorax. Mediastinum: Heart size is within normal limits. ICD device is seen. There is coronary artery calcifications. Nonspecific mediastinal lymph nodes are identified. These measure up to 11 mm in size. An NG tube passes through the esophagus and into the upper abdomen. Bones and soft tissues: Unremarkable IMPRESSION: 1. No pulmonary embolism. No aortic aneurysm or dissection. 2. Moderate bilateral pleural effusions with diffuse groundglass opacification suggestive of pulmonary edema. There is more focal consolidation in the lower lobes which may represent atelectasis or more focal bacterial pneumonia. In addition there are scattered groundglass opacification present in a more nodular appearance bilaterally raising the possibility of viral pneumonia. EXAM DESCRIPTION: CT angiogram of the chest CLINICAL HISTORY: 69 years Female; esophageal upper GI bleed. Epigastric pain. TECHNIQUE: CT angiogram of the abdomen and pelvis using intravenous contrast.. MIP reconstructions were performed. Imaging was performed in the arterial, venous and delayed phase. All CT scans at this facility use dose modulation, iterative reconstruction, and/or weight based dosing when appropriate to reduce radiation dose to as low as reasonably achievable. COMPARISON: None. FINDINGS: ABDOMEN: Aorta: Atherosclerotic vascular plaque is identified in the thoracic aorta. No dissection. No aneurysm. Celiac: Normal SMA: Normal Left renal: Normal Right renal: Large volume of plaque is seen at the origin of the renal artery and there is probable narrowing of the right renal artery. Liver: Homogeneous enhancement of the liver is seen. The hepatic arteries are patent. Portal vein is patent. No mass. Gallbladder is unremarkable. No biliary dilatation. Pancreas:Within normal limits Spleen:Within normal limits Kidneys: Kidneys are normal in size shape and position. No stones or hydronephrosis. No acute process. Symmetric renal enhancement is present bilaterally. There is a 10 mm low density area in the left kidney consistent with a simple cyst. Adrenal glands:Within normal limits GI: NG tube is in the stomach. No obvious contrast extravasation is seen into the stomach. There is hyperdense material in the bowel consistent with ingested material. This makes evaluation of hemorrhage into the bowel very limited. There is moderate stool in the colon. No bowel wall thickening. No focal caliber change or inflammation. appendix: The appendix is not clearly seen. Abdominal wall: Unremarkable Retroperitoneal: Small, nonspecific lymph nodes are present in the retroperitoneum. These do not meet size criteria for pathologic process. General: No free air. No free fluid. PELVIS: Right: Arterial phase imaging of the lower abdomen and pelvis was not performed. There is extensive atherosclerotic plaque in the common iliac artery and there may be a high-grade stenosis. Patency is not assessed. Left : Large volume of plaque is seen in the common iliac artery. Patency is not assessed since the pelvis was not imaged in the arterial phase. Bones: Vacuum discs are seen in the lower lumbar spine. No destructive bone lesions. Bladder: A Muñoz catheter is present in the bladder and the bladder is empty. There are small pockets of air in the bladder from the catheter. The superior aspect of the bladder extends towards the umbilicus consistent with a urachal remnant. Pelvis: No pelvic mass or adenopathy. IMPRESSION: 1. No active contrast extravasation is seen. 2. 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 3. No acute process is seen in the abdomen or pelvis.
[2019-09-09 23:21] LABS: HEMATOCRIT 24.4 % (36.0-47.0); MEAN CORPUSCULAR HEMOGLOBIN 27.6 pg (27.0-33.4); MEAN CORPUSCULAR HGB CONC 32.8 g/dL (32.0-36.0); MEAN CORPUSCULAR VOLUME 84 fl (80-97); PLATELET COUNT 281 10^3/uL (150-450); RED BLOOD COUNT 2.91 10^6/uL (3.72-5.28); RED CELL DISTRIBUTION WIDTH 16.3 % (11.5-14.0); WHITE BLOOD COUNT 24.6 10^3/uL (4.0-10.5)
[2019-09-09 23:35] LABS: ANION GAP 11 (5-19); BLOOD UREA NITROGEN 31 mg/dL (7-20); CALCIUM 8.6 mg/dL (8.4-10.2); CARBON DIOXIDE 25 mmol/L (22-30); CHLORIDE 94 mmol/L (98-107); GLUCOSE 99 mg/dL (75-110); POTASSIUM 4.5 mmol/L (3.6-5.0)
[2019-09-09 23:49] LABS: ARTERIAL BLOOD BASE EXCESS 3.2 mmol/L; ARTERIAL BLOOD H2CO3 1.54 mmol/L (1.05-1.35); ARTERIAL BLOOD HCO3 29.1 mmol/L (20-24); ARTERIAL BLOOD O2 SATURATION 47.3 % (94-98); ARTERIAL BLOOD PH 7.37 (7.35-7.45); ARTERIAL BLOOD TOTAL CO2 30.7 mmol/L (21-25)
[2019-09-09 23:51] LABS: ARTERIAL BLOOD FIO2 35%
[2019-09-09 23:52] LABS: ARTERIAL BLOOD PO2 26.8 mmHg (80-100)
[2019-09-09 23:56] LABS: APPEARANCE,URINE SLIGHTLY-CLOUDY; BILIRUBIN,URINE NEGATIVE (NEGATIVE); COLOR,URINE YELLOW; GLUCOSE, URINE NEGATIVE (NEGATIVE); KETONES,URINE NEGATIVE (NEGATIVE); LEUKOCYTE ESTERASE,URINE NEGATIVE (NEGATIVE); NITRITE,URINE NEGATIVE (NEGATIVE); PROTEIN,URINE 30 mg/dL (NEGATIVE); URINE SPECIFIC GRAVITY 1.016; UROBILINOGEN,URINE NEGATIVE mg/dL (<2.0)
[2019-09-10] MEDS: INSULIN REG, HUMAN 100 UNIT/ML 3 ML VIAL (PYX) SUBCUT SCH ×4 (00:11→18:52)
[2019-09-10] MEDS ORDERED: MILRINONE LACTATE/D5W 20 MG/100 ML RTUINJ IV PRN ×2 (00:11→20:26)
[2019-09-10] MEDS: NORMAL SALINE 1000 ML 1,000 ML IV PRN ×2 (00:13→10:13)
[2019-09-10] MEDS ORDERED: MIDAZOLAM 2 MG/2 ML INJ ONE (01:19)
[2019-09-10] MEDS: PANTOPRAZOLE SODIUM 40 MG VIAL IV PRN (02:48)
--- NOTE | 2019-09-10 03:19 | Operative Report ---
Bedside Procedure - History of Present Illness History of Present Illness: Mrs. Baugh is a 69-year-old female with hypertension, type 2 diabetes, history of pacemaker for symptomatic bradycardia, and current tobacco abuse who presented with metabolic acidosis, respiratory failure, elevated troponin, and possible GI bleed. She was intubated in the emergency room, received 2 PRBC's, and was transferred to the ICU. She has also subsequently been started on milrinone due to increased oxygen extraction with concern for heart failure/cardiogenic shock. PROCEDURE: ARTERIAL LINE PROCEDURALIST: PATRICK Curran Pre-procedure Dx: shock Post-procedure Dx: shock Anesthesia: 3 mL 1% Lidocaine without Epinephrine Complications: None Patient placed in proper procedural position followed by prepping and draping in usual sterile fashion. Utilizing ultrasound, the right radial artery was identified and pulsating without thrombus in the mid radius region. A 22-gauge introducer needle with preloaded 20-gauge 1 3/4" catheter was visualized entering the right radial artery under ultrasound with a return of blood. The preloaded catheter was advanced over the needle into the right radial artery and the needle was removed, noting pulsatile blood from the catheter. The catheter was sutured into place, transducer tubing was connected in usual fashion, and a sterile occlusive transparent dressing was applied. Good arterial waveform noted on the monitor. EBL 2 mL, pt tolerated procedure well. Indication for Procedure: Hypotension, heart failure Date: 09/09/19 Provider: DUSTIN JUAN
[2019-09-10] MEDS ORDERED: FENTANYL CITRATE/PF 600 MCG/60 ML BAG IV PRN (03:26)
[2019-09-10] MEDS ORDERED: MIDAZOLAM 2 MG/2 ML INJ IV ONE (03:30)
[2019-09-10 04:15] LABS: ABSOLUTE LYMPHOCYTES (AUTO) 1.7 10^3/uL (0.5-4.7); ABSOLUTE MONOCYTES (AUTO) 1.1 10^3/uL (0.1-1.4); BASOPHILS % (AUTO) 0.1 % (0-2); EOSINOPHILS % (AUTO) 0.2 % (0-6); HEMATOCRIT 21.5 % (36.0-47.0); LYMPHOCYTES % (AUTO) 11.6 % (13-45); MEAN CORPUSCULAR HEMOGLOBIN 27.7 pg (27.0-33.4); MEAN CORPUSCULAR HGB CONC 33.5 g/dL (32.0-36.0); MEAN CORPUSCULAR VOLUME 83 fl (80-97); MONOCYTES % (AUTO) 7.2 % (3-13); PLATELET COUNT 245 10^3/uL (150-450); RED BLOOD COUNT 2.61 10^6/uL (3.72-5.28); RED CELL DISTRIBUTION WIDTH 16.3 % (11.5-14.0); SEGMENTED NEUTROPHILS % (AUTO) 80.9 % (42-78); TOTAL CELLS COUNTED % (AUTO) 100 %; WHITE BLOOD COUNT 14.8 10^3/uL (4.0-10.5)
[2019-09-10 04:19] LABS: HEMOGLOBIN 7.2 g/dL (12.0-15.5)
[2019-09-10] MEDS ORDERED: NORMAL SALINE 250 ML IV PRN (04:23)
[2019-09-10 04:42] LABS: ANION GAP 7 (5-19); BLOOD UREA NITROGEN 33 mg/dL (7-20); C-REACTIVE PROTEIN 24.6 mg/L (<10.0); CALCIUM 8.3 mg/dL (8.4-10.2); CARBON DIOXIDE 26 mmol/L (22-30); CHLORIDE 97 mmol/L (98-107); GLUCOSE 90 mg/dL (75-110); POTASSIUM 4.5 mmol/L (3.6-5.0)
[2019-09-10 04:42] LABS: ARTERIAL BLOOD BASE EXCESS 1.7 mmol/L; ARTERIAL BLOOD FIO2 35%; ARTERIAL BLOOD H2CO3 0.98 mmol/L (1.05-1.35); ARTERIAL BLOOD HCO3 24.8 mmol/L (20-24); ARTERIAL BLOOD O2 SATURATION 94.3 % (94-98); ARTERIAL BLOOD PCO2 32.6 mmHg (35-45); ARTERIAL BLOOD PO2 63.9 mmHg (80-100); ARTERIAL BLOOD TOTAL CO2 25.8 mmol/L (21-25)
[2019-09-10 04:44] LABS: ARTERIAL BLOOD BASE EXCESS 2.3 mmol/L; ARTERIAL BLOOD H2CO3 1.08 mmol/L (1.05-1.35); ARTERIAL BLOOD O2 SATURATION 66.1 % (94-98); ARTERIAL BLOOD PCO2 35.9 mmHg (35-45); ARTERIAL BLOOD PH 7.48 (7.35-7.45); ARTERIAL BLOOD TOTAL CO2 27.1 mmol/L (21-25)
[2019-09-10 05:05] LABS: ARTERIAL BLOOD FIO2 30%; ARTERIAL BLOOD PO2 31.8 mmHg (80-100)
[2019-09-10 05:12] LABS: FERRITIN 8.56 ng/mL (11.1-264.0)
[2019-09-10] MEDS ORDERED: CEFEPIME 2 GM/D5W RTU 2 GM/50 ML RTUPB IV SCH (06:51)
--- NOTE | 2019-09-10 07:16 | EKG REPORT ---
SEVERITY:- ABNORMAL ECG - ATRIAL-SENSED VENTRICULAR-PACED RHYTHM : Confirmed by: Denny Sandhu MD 10-Sep-2019 07:16:28
[2019-09-10] MEDS ORDERED: VANCOMYCIN HCL INJ 1000 MG VIAL IV ONE (07:27)
[2019-09-10] MEDS: CEFEPIME HCL 2 GM in DEXTROSE 5%-WATER 50 ML IV SCH ×2 (08:30→17:34)
[2019-09-10 08:39] LABS: HEMATOCRIT 25.2 % (36.0-47.0); HEMOGLOBIN 8.5 g/dL (12.0-15.5); MEAN CORPUSCULAR HEMOGLOBIN 27.8 pg (27.0-33.4); MEAN CORPUSCULAR HGB CONC 33.7 g/dL (32.0-36.0); MEAN CORPUSCULAR VOLUME 83 fl (80-97); PLATELET COUNT 232 10^3/uL (150-450); RED BLOOD COUNT 3.05 10^6/uL (3.72-5.28); RED CELL DISTRIBUTION WIDTH 16.1 % (11.5-14.0); WHITE BLOOD COUNT 13.6 10^3/uL (4.0-10.5)
[2019-09-10 09:03] LABS: ANION GAP 7 (5-19); BLOOD UREA NITROGEN 32 mg/dL (7-20); CALCIUM 8.3 mg/dL (8.4-10.2); CARBON DIOXIDE 26 mmol/L (22-30); CHLORIDE 99 mmol/L (98-107); GLUCOSE 100 mg/dL (75-110); POTASSIUM 4.4 mmol/L (3.6-5.0)
[2019-09-10] MEDS ORDERED: HYDROMORPHONE HCL 30 MG/60 ML RTUINJ IV PRN (09:05)
--- NOTE | 2019-09-10 09:22 | PDOC CONSULTATION ---
Consultation Consult Date: 09/10/19 Provider Consulted: GEORGE ELLSWORTH Consult reason:: Elevated troponin History of Present Illness Admission Date/PCP: 09/09/19 18:04 EVA SIM PA-C Patient complains of: Intubated. Consult is for anemia and elevated troponin History of Present Illness: GIN OLIVEROS is a 69 year old female Who is intubated and very critically ill in the intensive care unit. History is per chart. Patient presented with epigastric pain which waxed and waned. She was found to be profoundly anemic with hemoglobin around 6. She was transfused 2 units of blood with appropriate increment in hematocrit but which dropped again. There is some report that she had melanotic stools but since admission to the hospital there is been no melena and no upper GI hemorrhage. Patient does have a left upper chest wall permanent pacemaker with evidence of demand pacing on EKG. No other history is available. Patient does have elevated troponin but this is in the setting of profound anemia. Past Medical History Cardiac Medical History: Reports: Hypertension Endocrine Medical History: Reports: Diabetes Mellitus Type 2 Past Surgical History Past Surgical History: Reports: Hysterectomy, Orthopedic Surgery, Pacemaker - for symptomatic bradycardia Social History Lives with: Spouse/Significant other Smoking Status: Current Every Day Smoker Electronic Cigarette use?: No Frequency of Alcohol Use: None Hx Recreational Drug Use: No Family History Family History: None Parental Family History Reviewed: No - Unable to obtain unable to obtain patient is intubated Children Family History Reviewed: NA Sibling(s) Family History Reviewed.: NA Medication/Allergy Home Medications: Amlodipine Besylate [Norvasc 10 mg Tablet] 10 mg PO DAILY 09/09/19 Aspirin [Ecotrin 81 mg EC Tablet] 81 mg PO DAILY 09/09/19 Docusate Sodium [Colace 100 mg Capsule] 100 mg PO QPM 09/09/19 Dulaglutide [Trulicity] 1.5 mg SQ FR@1000 09/09/19 Furosemide [Lasix 40 mg Tablet] 40 mg PO BID@,09/09/19 Gabapentin [Neurontin 300 mg Capsule] 300 mg PO BID@,09/09/19 Gabapentin [Neurontin 300 mg Capsule] 600 mg PO QHS 09/09/19 Lisinopril 20 mg PO Q12 09/09/19 Melatonin [Melatonin 5 mg Tablet] 10 mg PO QHS 09/09/19 Metformin HCl 1,000 mg PO BID 09/09/19 Omeprazole 20 mg PO BID 09/09/19 Pravastatin Sodium [Pravachol] 20 mg PO QHS 09/09/19 Zolpidem Tartrate [Ambien 5 mg Tablet] 5 mg PO HSP PRN 09/09/19 Allergies/Adverse Reactions: No Known Allergies Allergy (Verified 09/09/19 15:02) Review of Systems ROS unobtainable: Due to endotracheal tube Physical Exam Vital Signs: Temp Pulse Resp BP Pulse Ox 99.3 F 81 18 147/58 H 96 09/10/19 08:35 09/10/19 09:09 09/10/19 08:35 09/10/19 08:35 09/10/19 08:35 Intake & Output 09/09/19 09/10/19 09/11/19 06:59 06:59 06:59 Intake Total 1137 300 Output Total 385 160 Balance 752 140 Weight 71.9 kg General appearance: PRESENT: no acute distress, cooperative, well-developed, well-nourished Head exam: PRESENT: atraumatic, normocephalic Eye exam: PRESENT: conjunctiva pale Mouth exam: PRESENT: moist Respiratory exam: PRESENT: crackles, decreased breath sounds, symmetrical, unlabored Cardiovascular exam: PRESENT: RRR, +S1, +S2 Pulses: PRESENT: normal radial pulses GI/Abdominal exam: PRESENT: soft Rectal exam: PRESENT: deferred Musculoskeletal exam: PRESENT: normal inspection, tenderness Neurological exam: PRESENT: awake Skin exam: PRESENT: dry, intact Results Laboratory Results: 09/10/19 08:14 09/10/19 08:14 09/09/19 09/09/19 09/09/19 15:52 15:52 16:39 WBC 17.4 H RBC 2.27 L Hgb 6.0 L Hct 18.6 L MCV 82 MCH 26.5 L MCHC 32.4 RDW 17.8 H Plt Count 420 Seg Neutrophils % 84.8 H Carbonic Acid HCO3/H2CO3 Ratio ABG pH ABG pCO2 ABG pO2 ABG HCO3 ABG O2 Saturation ABG Base Excess FiO2 Sodium 129.3 L Potassium 5.0 Chloride 91 L Carbon Dioxide 25 Anion Gap 13 BUN 30 H Creatinine 1.23 Est GFR ( Amer) 52 L Glucose 115 H Lactic Acid Calcium 9.2 Phosphorus Magnesium Ferritin Total Bilirubin 0.5 AST 50 H Alkaline Phosphatase 79 C-Reactive Protein Total Protein 7.1 Albumin 4.4 Lipase 104.6 Urine Color Urine Appearance Urine pH Ur Specific Husser Urine Protein Urine Glucose (UA) Urine Ketones Urine Blood Urine Nitrite Ur Leukocyte Esterase Urine WBC (Auto) Urine RBC (Auto) Blood Type O POSITIVE Antibody Screen NEGATIVE 09/09/19 09/09/19 09/09/19 17:51 17:51 17:51 WBC RBC Hgb Hct MCV MCH MCHC RDW Plt Count Seg Neutrophils % Carbonic Acid 1.65 H HCO3/H2CO3 Ratio 8:1 ABG pH 7.02 L* ABG pCO2 54.7 H ABG pO2 166.7 H ABG HCO3 13.8 L ABG O2 Saturation 98.2 H ABG Base Excess -16.4 FiO2 100% Sodium Potassium Chloride Carbon Dioxide Anion Gap BUN Creatinine Est GFR ( Amer) Glucose Lactic Acid 12.7 H Calcium Phosphorus Magnesium Ferritin 6.93 L Total Bilirubin AST Alkaline Phosphatase C-Reactive Protein 11.6 H Total Protein Albumin Lipase Urine Color Urine Appearance Urine pH Ur Specific Husser Urine Protein Urine Glucose (UA) Urine Ketones Urine Blood Urine Nitrite Ur Leukocyte Esterase Urine WBC (Auto) Urine RBC (Auto) Blood Type Antibody Screen 09/09/19 09/09/19 09/09/19 17:51 20:25 22:40 WBC RBC Hgb Hct MCV MCH MCHC RDW Plt Count Seg Neutrophils % Carbonic Acid 1.19 HCO3/H2CO3 Ratio 14:1 ABG pH 7.25 L ABG pCO2 39.4 ABG pO2 349.9 H ABG HCO3 16.8 L ABG O2 Saturation 99.7 H ABG Base Excess -9.7 FiO2 100% Sodium 130.2 L Potassium 4.5 Chloride 94 L Carbon Dioxide 25 Anion Gap 11 BUN 31 H Creatinine 1.33 H Est GFR ( Amer) 48 L Glucose 99 Lactic Acid Calcium 8.6 Phosphorus 9.6 H Magnesium 2.8 H Ferritin Total Bilirubin AST Alkaline Phosphatase C-Reactive Protein Total Protein Albumin Lipase Urine Color Urine Appearance Urine pH Ur Specific Husser Urine Protein Urine Glucose (UA) Urine Ketones Urine Blood Urine Nitrite Ur Leukocyte Esterase Urine WBC (Auto) Urine RBC (Auto) Blood Type Antibody Screen 09/09/19 09/09/19 09/09/19 22:40 23:20 23:20 WBC 24.6 H RBC 2.91 L Hgb 8.0 L Hct 24.4 L MCV 84 MCH 27.6 MCHC 32.8 RDW 16.3 H Plt Count 281 Seg Neutrophils % Carbonic Acid 1.54 H HCO3/H2CO3 Ratio 18:1 ABG pH 7.37 ABG pCO2 51.0 H ABG pO2 26.8 L* ABG HCO3 29.1 H ABG O2 Saturation 47.3 L ABG Base Excess 3.2 FiO2 35% Sodium Potassium Chloride Carbon Dioxide Anion Gap BUN Creatinine Est GFR ( Amer) Glucose Lactic Acid 3.9 H Calcium Phosphorus Magnesium Ferritin Total Bilirubin AST Alkaline Phosphatase C-Reactive Protein Total Protein Albumin Lipase Urine Color Urine Appearance Urine pH Ur Specific Husser Urine Protein Urine Glucose (UA) Urine Ketones Urine Blood Urine Nitrite Ur Leukocyte Esterase Urine WBC (Auto) Urine RBC (Auto) Blood Type Antibody Screen 09/09/19 09/10/19 09/10/19 23:20 03:50 04:05 WBC RBC Hgb Hct MCV MCH MCHC RDW Plt Count Seg Neutrophils % Carbonic Acid 0.98 L HCO3/H2CO3 Ratio 25:1 ABG pH 7.50 H ABG pCO2 32.6 L ABG pO2 63.9 L ABG HCO3 24.8 H ABG O2 Saturation 94.3 ABG Base Excess 1.7 FiO2 35% Sodium 129.9 L Potassium 4.5 Chloride 97 L Carbon Dioxide 26 Anion Gap 7 BUN 33 H Creatinine 1.42 H Est GFR ( Amer) 44 L Glucose 90 Lactic Acid Calcium 8.3 L Phosphorus Magnesium Ferritin 8.56 L Total Bilirubin AST Alkaline Phosphatase C-Reactive Protein 24.6 H Total Protein Albumin Lipase Urine Color YELLOW Urine Appearance SLIGHTLY-CLOUDY Urine pH 5.0 Ur Specific Husser 1.016 Urine Protein 30 H Urine Glucose (UA) NEGATIVE Urine Ketones NEGATIVE Urine Blood NEGATIVE Urine Nitrite NEGATIVE Ur Leukocyte Esterase NEGATIVE Urine WBC (Auto) 8 Urine RBC (Auto) 0 Blood Type Antibody Screen 09/10/19 09/10/19 09/10/19 04:05 04:05 04:33 WBC 14.8 H RBC 2.61 L Hgb 7.2 L Hct 21.5 L MCV 83 MCH 27.7 MCHC 33.5 RDW 16.3 H Plt Count 245 Seg Neutrophils % 80.9 H Carbonic Acid 1.08 HCO3/H2CO3 Ratio 24:1 ABG pH 7.48 H ABG pCO2 35.9 ABG pO2 31.8 L* ABG HCO3 26.0 H ABG O2 Saturation 66.1 L ABG Base Excess 2.3 FiO2 30% Sodium Potassium Chloride Carbon Dioxide Anion Gap BUN Creatinine Est GFR ( Amer) Glucose Lactic Acid 1.4 Calcium Phosphorus Magnesium Ferritin Total Bilirubin AST Alkaline Phosphatase C-Reactive Protein Total Protein Albumin Lipase Urine Color Urine Appearance Urine pH Ur Specific Husser Urine Protein Urine Glucose (UA) Urine Ketones Urine Blood Urine Nitrite Ur Leukocyte Esterase Urine WBC (Auto) Urine RBC (Auto) Blood Type Antibody Screen 09/10/19 09/10/19 08:14 08:14 WBC 13.6 H RBC 3.05 L Hgb 8.5 L Hct 25.2 L MCV 83 MCH 27.8 MCHC 33.7 RDW 16.1 H Plt Count 232 Seg Neutrophils % Carbonic Acid HCO3/H2CO3 Ratio ABG pH ABG pCO2 ABG pO2 ABG HCO3 ABG O2 Saturation ABG Base Excess FiO2 Sodium 131.6 L Potassium 4.4 Chloride 99 Carbon Dioxide 26 Anion Gap 7 BUN 32 H Creatinine 1.41 H Est GFR ( Amer) 45 L Glucose 100 Lactic Acid Calcium 8.3 L Phosphorus Magnesium Ferritin Total Bilirubin AST Alkaline Phosphatase C-Reactive Protein Total Protein Albumin Lipase Urine Color Urine Appearance Urine pH Ur Specific Husser Urine Protein Urine Glucose (UA) Urine Ketones Urine Blood Urine Nitrite Ur Leukocyte Esterase Urine WBC (Auto) Urine RBC (Auto) Blood Type Antibody Screen 09/09/19 09/09/19 09/10/19 17:51 22:40 04:33 Troponin I 2.860 4.710 10.200 NT-Pro-B Natriuret Pep 6880 H EKG Comments: Telemetry shows sinus rhythm with demand pacing. Twelve-lead EKG. Typically reviewed Sinus rhythm with demand pacing. Lateral ST depressions are noted. This could be consistent with myocardial ischemia Impressions: Chest X-Ray 09/09/19 00:00 IMPRESSION: 1. Cardiomegaly and pulmonary vascular congestion. Mild prominence of the interstitial markings in the lungs may be on the basis of edema. 2. In the right infrahilar region, increased airspace disease may represent infiltrate. Chest/Abdomen CTA 09/09/19 00:00 IMPRESSION: 1. No pulmonary embolism. No aortic aneurysm or dissection. 2. Moderate bilateral pleural effusions with diffuse groundglass opacification suggestive of pulmonary edema. There is more focal consolidation in the lower lobes which may represent atelectasis or more focal bacterial pneumonia. In addition there are scattered groundglass opacification present in a more nodular appearance bilaterally raising the possibility of viral pneumonia. EXAM DESCRIPTION: CT angiogram of the chest CLINICAL HISTORY: 69 years Female; esophageal upper GI bleed. Epigastric pain. TECHNIQUE: CT angiogram of the abdomen and pelvis using intravenous contrast.. MIP reconstructions were performed. Imaging was performed in the arterial, venous and delayed phase. All CT scans at this facility use dose modulation, iterative reconstruction, and/or weight based dosing when appropriate to reduce radiation dose to as low as reasonably achievable. COMPARISON: None. FINDINGS: ABDOMEN: Aorta: Atherosclerotic vascular plaque is identified in the thoracic aorta. No dissection. No aneurysm. Celiac: Normal SMA: Normal Left renal: Normal Right renal: Large volume of plaque is seen at the origin of the renal artery and there is probable narrowing of the right renal artery. Liver: Homogeneous enhancement of the liver is seen. The hepatic arteries are patent. Portal vein is patent. No mass. Gallbladder is unremarkable. No biliary dilatation. Pancreas:Within normal limits Spleen:Within normal limits Kidneys: Kidneys are normal in size shape and position. No stones or hydronephrosis. No acute process. Symmetric renal enhancement is present bilaterally. There is a 10 mm low density area in the left kidney consistent with a simple cyst. Adrenal glands:Within normal limits GI: NG tube is in the stomach. No obvious contrast extravasation is seen into the stomach. There is hyperdense material in the bowel consistent with ingested material. This makes evaluation of hemorrhage into the bowel very limited. There is moderate stool in the colon. No bowel wall thickening. No focal caliber change or inflammation. appendix: The appendix is not clearly seen. Abdominal wall: Unremarkable Retroperitoneal: Small, nonspecific lymph nodes are present in the retroperitoneum. These do not meet size criteria for pathologic process. General: No free air. No free fluid. PELVIS: Right: Arterial phase imaging of the lower abdomen and pelvis was not performed. There is extensive atherosclerotic plaque in the common iliac artery and there may be a high-grade stenosis. Patency is not assessed. Left : Large volume of plaque is seen in the common iliac artery. Patency is not assessed since the pelvis was not imaged in the arterial phase. Bones: Vacuum discs are seen in the lower lumbar spine. No destructive bone lesions. Bladder: A Muñoz catheter is present in the bladder and the bladder is empty. There are small pockets of air in the bladder from the catheter. The superior aspect of the bladder extends towards the umbilicus consistent with a urachal remnant. Pelvis: No pelvic mass or adenopathy. IMPRESSION: 1. No active contrast extravasation is seen. 2. 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 3. No acute process is seen in the abdomen or pelvis. KUB X-Ray 09/09/19 00:00 IMPRESSION: Nasogastric tube tip is in the stomach. Abdomen Ultrasound 09/09/19 15:43 IMPRESSION: NORMAL RIGHT UPPER QUADRANT ULTRASOUND. Abdomen/Pelvis CTA 09/09/19 18:49 IMPRESSION: 1. No pulmonary embolism. No aortic aneurysm or dissection. 2. Moderate bilateral pleural effusions with diffuse groundglass opacification suggestive of pulmonary edema. There is more focal consolidation in the lower lobes which may represent atelectasis or more focal bacterial pneumonia. In addition there are scattered groundglass opacification present in a more nodular appearance bilaterally raising the possibility of viral pneumonia. EXAM DESCRIPTION: CT angiogram of the chest CLINICAL HISTORY: 69 years Female; esophageal upper GI bleed. Epigastric pain. TECHNIQUE: CT angiogram of the abdomen and pelvis using intravenous contrast.. MIP reconstructions were performed. Imaging was performed in the arterial, venous and delayed phase. All CT scans at this facility use dose modulation, iterative reconstruction, and/or weight based dosing when appropriate to reduce radiation dose to as low as reasonably achievable. COMPARISON: None. FINDINGS: ABDOMEN: Aorta: Atherosclerotic vascular plaque is identified in the thoracic aorta. No dissection. No aneurysm. Celiac: Normal SMA: Normal Left renal: Normal Right renal: Large volume of plaque is seen at the origin of the renal artery and there is probable narrowing of the right renal artery. Liver: Homogeneous enhancement of the liver is seen. The hepatic arteries are patent. Portal vein is patent. No mass. Gallbladder is unremarkable. No biliary dilatation. Pancreas:Within normal limits Spleen:Within normal limits Kidneys: Kidneys are normal in size shape and position. No stones or hydronephrosis. No acute process. Symmetric renal enhancement is present bilaterally. There is a 10 mm low density area in the left kidney consistent with a simple cyst. Adrenal glands:Within normal limits GI: NG tube is in the stomach. No obvious contrast extravasation is seen into the stomach. There is hyperdense material in the bowel consistent with ingested material. This makes evaluation of hemorrhage into the bowel very limited. There is moderate stool in the colon. No bowel wall thickening. No focal caliber change or inflammation. appendix: The appendix is not clearly seen. Abdominal wall: Unremarkable Retroperitoneal: Small, nonspecific lymph nodes are present in the retroperitoneum. These do not meet size criteria for pathologic process. General: No free air. No free fluid. PELVIS: Right: Arterial phase imaging of the lower abdomen and pelvis was not performed. There is extensive atherosclerotic plaque in the common iliac artery and there may be a high-grade stenosis. Patency is not assessed. Left : Large volume of plaque is seen in the common iliac artery. Patency is not assessed since the pelvis was not imaged in the arterial phase. Bones: Vacuum discs are seen in the lower lumbar spine. No destructive bone lesions. Bladder: A Muñoz catheter is present in the bladder and the bladder is empty. There are small pockets of air in the bladder from the catheter. The superior aspect of the bladder extends towards the umbilicus consistent with a urachal remnant. Pelvis: No pelvic mass or adenopathy. IMPRESSION: 1. No active contrast extravasation is seen. 2. 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 3. No acute process is seen in the abdomen or pelvis. Assessment & Plan - Diagnosis (1) Anemia Qualifiers: Anemia type: unspecified type Qualified Code(s): D64.9 - Anemia, unspecified Is this a current diagnosis for this admission?: Yes Plan: Anemia-suspect GI bleed Await hemolytic panel Agree with blood transfusion Agree with keeping hemoglobin above 8 g/dL possible Appreciate surgical input Supportive care at the moment with transfusion (2) Acute respiratory failure with hypoxia and hypercapnia Is this a current diagnosis for this admission?: Yes Plan: This is again in the setting of probable ongoing viral illness or infectious process together with profound anemia (3) Elevated troponin I level Is this a current diagnosis for this admission?: Yes Plan: Likely secondary to profound anemia and type II myocardial infarction with increased demand in the face of profound hypoxemia. Would not recommend heparinization especially given profound anemia. Trend hemoglobin. Transfuse as needed Supportive care with statin and beta-blockers if feasible and if hemodynamics would permit. We will review echocardiogram - Notes Notes: Elevated troponin in the setting of profound anemia Supportive care only Do not believe this is acute coronary syndrome Statin and beta-blockers if feasible. We will review echocardiogram
[2019-09-10] MEDS: AZITHROMYCIN 500 MG in DEXTROSE 5%-WATER 250 ML IV SCH (09:45)
--- NOTE | 2019-09-10 09:45 | CRITICAL CARE ADMISSION REPORT ---
HPI Date:: 09/09/19 Time:: 20:00 Reason for ICU Reason:: Acute hypoxic respiratory failure HPI: Mrs. Baugh is a 69-year-old female with hypertension, type 2 diabetes, history of pacemaker for symptomatic bradycardia, and current tobacco abuse who presented to [facility] with complains of epigastric abdominal pain for several days associated with nausea/vomiting x4 days per her . Food makes the pain worse and she has taken Aleve which did not alleviate her pain/symptoms. She has also had black stools for 2-3 days. When combined with anemia upon presentation, there is concern for GI bleeding. She was found to have leukocytosis, lactic acidosis, and elevated troponin on initial lab work, though denies chest pain. She does have SOB, CXR with RLL and infrahilar infiltrate. She was intubated in the emergency room for acute hypoxic/hypercapnic respiratory failure, received 2 PRBC's for Hgb 6, and will be transferred to the ICU. History obtained from:: medical record, ER physician, patient's , patient's daughter - Diagnosis/Plan (1) Acute respiratory failure with hypoxia and hypercapnia Is this a current diagnosis for this admission?: Yes Plan: Support with mechanical ventilation, volume control. Wean Peep and FiO2 prn. Elevate HOB >30 degrees. Chlorhexidine oral care to prevent ventilator-associated event. Sedation to tolerate ventilator, though avoiding hypotension. (2) Pneumonia Qualifiers: Pneumonia type: due to unspecified organism Laterality: right Lung location: lower lobe of lung Qualified Code(s): J18.9 - Pneumonia, unspecified organism Is this a current diagnosis for this admission?: Yes Plan: Suspect pneumonia with RLL/infrahilar infiltrate and likely LLL infiltrate. Could be bacterial infection, viral pneumonia such as COVID-19, or perhaps even aspiration given frequent nausea/vomiting episodes for several days. Support with ventilator, volume control setting overnight. Wean FiO2 and Peep prn. Obtain ABG Empiric Meropenem for now for possible intra-abdominal source of infection. Will consider additional coverage pending CT results and repeat CBC. (3) Suspected COVID-19 virus infection Is this a current diagnosis for this admission?: Yes Plan: Send for COVID-19 with mini-BAL given possible viral pattern pneumonia on chest imaging. Place in airborne/droplet/contact isolation until results. Unfortunately, due to prolonged QT interval we are unable to start Plaquenil/Azithromycin at this time; however, we will continue to assess. (4) Leukocytosis, unspecified Qualifiers: Leukocytosis type: unspecified Qualified Code(s): D72.829 - Elevated white blood cell count, unspecified Is this a current diagnosis for this admission?: Yes Plan: Empiric Meropenem for now for possible intra-abdominal source of infection. Will consider additional coverage pending CT results and repeat CBC. (5) GI bleed Qualifiers: GI bleed type/associated pathology: unspecified gastrointestinal hemorrhage type Qualified Code(s): K92.2 - Gastrointestinal hemorrhage, unspecified Is this a current diagnosis for this admission?: Yes Plan: Suspect GI bleed given Hgb was 12 in October 2018. Serial H&H, large bore IV access already established with CVC placed in ED. Transfuse to keep Hgb >8 given possible ACS/heart failure. No source of bleeding identified on CT. Dr Garnica with surgery consulted, no plan for EGD/colonoscopy at this time but plan may change depending on serial H&H as well as transfusion requirements. (6) Anemia due to acute blood loss Is this a current diagnosis for this admission?: Yes Plan: serial H&H Transfuse prn to keep Hgb >8 (7) Metabolic acidosis Is this a current diagnosis for this admission?: Yes Plan: Empiric antibiotics, blood transfusion, possibly Milrinone. (8) Heart failure Qualifiers: Heart failure type: unspecified Heart failure chronicity: unspecified Qualified Code(s): I50.9 - Heart failure, unspecified Is this a current diagnosis for this admission?: Yes Plan: Obtain TTE to determine if cardiogenic shock is source of metabolic acidosis. Check VBG for O2 sat evaluating oxygen extraction. If low, may need Milrinone. (9) Pericardial effusion without cardiac tamponade Is this a current diagnosis for this admission?: Yes Plan: Visualized on POCUS. Will better elucidate on TTE. Not causing obstructive pathology, do not suspect is source of infection, therefore no need to drain at this time. (10) Prolonged Q-T interval on ECG Is this a current diagnosis for this admission?: Yes Plan: Will avoid Azithromycin and Plaquenil at this time for suspected COVID given QTc 534 ms. Avoid other QT prolonging agents. (11) Elevated troponin I level Is this a current diagnosis for this admission?: Yes Plan: Trend troponin and repeat EKG in AM to r/o AMI. 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 Will follow H&H, cardiac biomarkers, and EKG closely to determine further plan of care. Could be demand ischemia from anemia. Transfuse to keep Hgb >8. (12) Diabetes mellitus with hyperglycemia Qualifiers: Diabetes mellitus type: type 2 Diabetes mellitus exterminator termite insulin use: unspecified long-term insulin use status Qualified Code(s): E11.65 - Type 2 diabetes mellitus with hyperglycemia Is this a current diagnosis for this admission?: Yes Plan: start ISS (13) Tobacco abuse Is this a current diagnosis for this admission?: Yes Plan: Smoking cessation counseling prior to discharge. Past Medical History Past Medical History: Intubated, sedated. Cardiac Medical History: Reports: Hypertension Endocrine Medical History: Reports: Diabetes Mellitus Type 2 Past Surgical History Past Surgical History: Reports: Hysterectomy, Orthopedic Surgery, Pacemaker - for symptomatic bradycardia Social/Family History - Social History Lives with: Spouse/Significant other Smoking Status: Current Every Day Smoker Frequency of Alcohol Use: None Hx Recreational Drug Use: No - Medication/Allergies Home Medications: Aspirin [Ecotrin 81 mg EC Tablet] 81 mg PO DAILY 09/09/19 Docusate Sodium [Colace 100 mg Capsule] 100 mg PO QPM 09/09/19 Dulaglutide [Trulicity] 1.5 mg SQ FR@1000 09/09/19 Gabapentin [Neurontin 300 mg Capsule] 600 mg PO QHS 09/09/19 Lisinopril 20 mg PO Q12 09/09/19 Melatonin [Melatonin 5 mg Tablet] 10 mg PO QHS 09/09/19 Metformin HCl 1,000 mg PO BID 09/09/19 Omeprazole 20 mg PO BID 09/09/19 Pravastatin Sodium [Pravachol] 20 mg PO QHS 09/09/19 RX: Amlodipine Besylate [Norvasc 10 mg Tablet] 10 mg PO DAILY 09/09/19 RX: Furosemide [Lasix 40 mg Tablet] 40 mg PO BID@,15 09/09/19 RX: Gabapentin [Neurontin 300 mg Capsule] 300 mg PO BID@08,14 09/09/19 RX: Zolpidem Tartrate [Ambien 5 mg Tablet] 5 mg PO HSP PRN 09/09/19 Allergies/Adverse Reactions: No Known Allergies Allergy (Verified 09/09/19 15:02) Review of Systems ROS unobtainable: Due to endotracheal tube - as per HPI, Other - see HPI for what can be elucidated at this time Physical Exam Vital Signs: Temp Pulse Resp BP Pulse Ox 97.9 F 98 18 123/49 L 100 09/09/19 15:02 09/09/19 15:02 09/09/19 19:55 09/09/19 19:55 09/09/19 19:55 Intake & Output 09/08/19 09/09/19 09/10/19 06:59 06:59 06:59 Intake Total 1000 Balance 1000 Weight 66.678 kg Weight/Height Weight 66.678 kg Height 5 ft 6 in General appearance: PRESENT: no acute distress, well-developed Head exam: PRESENT: atraumatic, normocephalic Eye exam: PRESENT: conjunctiva pink, EOMI, PERRLA. ABSENT: periorbital s welling, scleral icterus Ear exam: PRESENT: normal external ear exam Mouth exam: PRESENT: moist, neck supple, tongue midline Throat exam: ABSENT: post pharyngeal erythema Neck exam: PRESENT: full ROM. ABSENT: JVD, lymphadenopathy, meningismus, tracheal deviation Respiratory exam: PRESENT: symmetrical, unlabored, other - Lung sounds not auscultated secondary to the confines of PPE and poor auditory capability of disposable stethoscope.. ABSENT: accessory muscle use Cardiovascular exam: PRESENT: RRR - on telemetry, other - Heart sounds not ausc ultated secondary to the confines of PPE and poor auditory capability of disposable stethoscope. Pulses: PRESENT: normal radial pulses, +2 pedal pulses bilateral Vascular exam: PRESENT: normal capillary refill GI/Abdominal exam: PRESENT: soft, other - Gastric sounds not auscultated secondary to the confines of PPE and poor auditory capability of disposable stethoscope. NG tube with bilious drainage. ABSENT: distended Rectal exam: PRESENT: deferred Gentrourinary exam: PRESENT: indwelling catheter Extremities exam: PRESENT: full ROM. ABSENT: joint swelling, pedal edema Musculoskeletal exam: PRESENT: full ROM, normal inspection Neurological exam: PRESENT: other - intubated, sedated Skin exam: PRESENT: dry, intact, normal color, warm. ABSENT: jaundice, rash Tubes/Lines: PRESENT: Endotracheal Tube, Central Line, Nasogastic Tube Laboratory/Radiographs Laboratory Results: 09/09/19 15:52 09/09/19 15:52 09/09/19 09/09/19 09/09/19 15:52 15:52 16:39 WBC 17.4 H RBC 2.27 L Hgb 6.0 L Hct 18.6 L MCV 82 MCH 26.5 L MCHC 32.4 RDW 17.8 H Plt Count 420 Seg Neutrophils % 84.8 H Carbonic Acid HCO3/H2CO3 Ratio ABG pH ABG pCO2 ABG pO2 ABG HCO3 ABG O2 Saturation ABG Base Excess FiO2 Sodium 129.3 L Potassium 5.0 Chloride 91 L Carbon Dioxide 25 Anion Gap 13 BUN 30 H Creatinine 1.23 Est GFR ( Amer) 52 L Glucose 115 H Lactic Acid Calcium 9.2 Phosphorus Magnesium Ferritin Total Bilirubin 0.5 AST 50 H Alkaline Phosphatase 79 C-Reactive Protein Total Protein 7.1 Albumin 4.4 Lipase 104.6 Blood Type O POSITIVE Antibody Screen NEGATIVE 09/09/19 09/09/19 09/09/19 17:51 17:51 17:51 WBC RBC Hgb Hct MCV MCH MCHC RDW Plt Count Seg Neutrophils % Carbonic Acid 1.65 H HCO3/H2CO3 Ratio 8:1 ABG pH 7.02 L* ABG pCO2 54.7 H ABG pO2 166.7 H ABG HCO3 13.8 L ABG O2 Saturation 98.2 H ABG Base Excess -16.4 FiO2 100% Sodium Potassium Chloride Carbon Dioxide Anion Gap BUN Creatinine Est GFR ( Amer) Glucose Lactic Acid 12.7 H Calcium Phosphorus Magnesium Ferritin 6.93 L Total Bilirubin AST Alkaline Phosphatase C-Reactive Protein 11.6 H Total Protein Albumin Lipase Blood Type Antibody Screen 09/09/19 17:51 WBC RBC Hgb Hct MCV MCH MCHC RDW Plt Count Seg Neutrophils % Carbonic Acid HCO3/H2CO3 Ratio ABG pH ABG pCO2 ABG pO2 ABG HCO3 ABG O2 Saturation ABG Base Excess FiO2 Sodium Potassium Chloride Carbon Dioxide Anion Gap BUN Creatinine Est GFR ( Amer) Glucose Lactic Acid Calcium Phosphorus 9.6 H Magnesium 2.8 H Ferritin Total Bilirubin AST Alkaline Phosphatase C-Reactive Protein Total Protein Albumin Lipase Blood Type Antibody Screen 09/09/19 17:51 Troponin I 2.860 NT-Pro-B Natriuret Pep 6880 H Impressions: Chest X-Ray 09/09/19 00:00 IMPRESSION: 1. Cardiomegaly and pulmonary vascular congestion. Mild prominence of the interstitial markings in the lungs may be on the basis of edema. 2. In the right infrahilar region, increased airspace disease may represent infiltrate. KUB X-Ray 09/09/19 00:00 IMPRESSION: Nasogastric tube tip is in the stomach. Abdomen Ultrasound 09/09/19 15:43 IMPRESSION: NORMAL RIGHT UPPER QUADRANT ULTRASOUND. All labs, radiographs, diagnostic studies and EKGs were personally reviewed: Yes In addition, reports of radiographic and diagnostic studies were read: Yes Critical Time Critical Time (minutes): 85 - exclusive of any procedures performed, though does include POCUS performed by myself. -: The care of a critically ill patient is dynamic. This note represents a static moment in the admission process. Orders and treatments may be given simultaneously and urgently, and time is not veterans employment representative of the treatment process. This patient requires Critical Care secondary to life threatening organ or limb dysfunction. Without Critical Care services, the patient is at risk for increased mortality and morbidity.
[2019-09-10] MEDS ORDERED: AZITHROMYCIN INJ 500 MG VIAL IV SCH (10:00)
--- NOTE | 2019-09-10 10:08 | XCELERA REPORT ---
[address] [address] Transthoracic Echocardiogram Report Name: GIN OLIVEROS Age: 69 yrs Gender: Female : 1950 Patient Status: Inpatient Patient Location: ICU^609^A Study Date: 09/10/2019 08:19 AM Height: 65 in Weight: 158 lb BSA: 1.8 m2 Procedure: A complete two-dimensional transthoracic echocardiogram was performed (2D, M-mode, spectral and color flow Doppler). The study was technically difficult with many images being suboptimal in quality. Reason For Study: heart failure, cardiogenic shock, R/O AMI Previous Evaluation: No previous studies were available. History: NSTEMI Anemia PPM. Ordering Physician: DUSTIN JUAN Performed By: Laure Birch Interpretation Summary The study was technically difficult with many images being suboptimal in quality. Left ventricular systolic function is low normal. The Ejection Fraction estimate is 50-55% The right ventricle is normal in size and function. There is a trace amount of mitral regurgitation There is no aortic valve stenosis There is a trace amount of tricuspid regurgitation There is no pericardial effusion. MMode/2D Measurements & Calculations RVDd: 2.1 cm LVIDd: 5.1 cm FS: 21.5 % Ao root diam: 2.4 cm IVSd: 1.1 cm LVIDs: 4.0 cm EDV(Teich): 121.8 ml Ao root area: 4.6 cm2 LVPWd: 0.94 cm ESV(Teich): 69.1 ml LA dimension: 3.8 cm EF(Teich): 43.3 % Doppler Measurements & Calculations MV E max colton: MV P1/2t max colton: Ao V2 max: LV V1 max P.9 cm/sec 176.5 cm/sec 133.2 cm/sec 5.2 mmHg MV A max colton: MV P1/2t: 47.1 msec Ao max PG: LV V1 max: 125.9 cm/sec MVA(P1/2t): 4.7 cm2 7.2 mmHg 114.5 cm/sec MV E/A: 0.98 MV dec slope: 1097 cm/sec2 MV dec time: 0.23 sec PA V2 max: PI end-d colton: TR max colton: MV P1/2t-pr_phl: 115.0 cm/sec 139.8 cm/sec 291.8 cm/sec 47.1 msec PA max P.3 mmHg TR max P.1 mmHg Left Ventricle The left ventricle is normal in size. There is borderline concentric left ventricular hypertrophy. Left ventricular systolic function is low normal. The Ejection Fraction estimate is 50-55%. Doppler measurements suggest pseudonormalized left ventricular relaxation, which is associated with grade II/IV or mild to moderate diastolic dysfunction. Right Ventricle The right ventricle is normal in size and function. Atria The right atrium is normal. The left atrium is borderline dilated. The thickening of interatrial septum suggests lipomatous hypertrophy. Mitral Valve The mitral valve is grossly normal. The mitral valve leaflets are sclerotic, but show no functional abnormalities. There is a trace amount of mitral regurgitation. Aortic Valve The aortic valve is not well visualized secondary to technical limitations. The aortic valve is sclerotic and shows some degree of functional abnormality. The aortic valve is moderately calcified. There is no aortic valve stenosis. There is a mild amount of aortic regurgitation. Tricuspid Valve The tricuspid valve is normal in structure and function. There is a trace amount of tricuspid regurgitation. Tricuspid regurgitation jet envelope not well defined to measure RV systolic pressure accurately. Doppler findings do not suggest pulmonary hypertension. Pulmonic Valve The pulmonic valve is not well visualized. There is a trace amount of pulmonic regurgitation. Great Vessels The aortic root is normal size. Effusions There is no pericardial effusion. : DUSTIN JUAN Anil
--- NOTE | 2019-09-10 10:54 | PDOC CRITICAL CARE PROG REPORT ---
General Date:: 09/10/19 ICU Day:: 1 Ventilator Day:: 1 Hospital Day:: 1 Resuscitation Status: Full Code Events in the past 12 to 24 Hours:: Intubated, evaluated for gi bleed. Covid R/O. Review of systems relevant to events:: Respiratory, GI. Reason for ICU Addmission:: Acute hypoxic respiratory failure. Intubated. - Medications: Medications reviewed and adjusted accordingly: Yes Vasopressors:: None Sedation:: None Physical Exam Vital Signs: Temp Pulse Resp BP Pulse Ox 99.7 F 93 16 116/50 L 99 09/10/19 10:00 09/10/19 10:00 09/10/19 10:00 09/10/19 10:00 09/10/19 10:00 Intake & Output 09/09/19 09/10/19 09/11/19 06:59 06:59 06:59 Intake Total 1137 300 Output Total 385 275 Balance 752 25 Weight 71.9 kg Weight/Height Weight 71.9 kg Height 5 ft 5 in General appearance: PRESENT: no acute distress Head exam: PRESENT: atraumatic, normocephalic Eye exam: PRESENT: conjunctiva pink, EOMI, PERRLA. ABSENT: scleral icterus Ear exam: PRESENT: normal external ear exam Mouth exam: PRESENT: moist, tongue midline Respiratory exam: PRESENT: symmetrical, unlabored Cardiovascular exam: PRESENT: RRR. ABSENT: diastolic murmur, rubs, systolic murmur Vascular exam: PRESENT: normal capillary refill GI/Abdominal exam: PRESENT: normal bowel sounds, soft. ABSENT: distended, guarding, mass, organolmegaly, rebound, tenderness Rectal exam: PRESENT: deferred Extremities exam: PRESENT: full ROM. ABSENT: calf tenderness, clubbing, pedal edema Neurological exam: PRESENT: other - Sedated. Psychiatric exam: PRESENT: other - Sedated. Skin exam: PRESENT: dry, intact, warm. ABSENT: cyanosis, rash Laboratory/Radiographs Laboratory Results: 09/10/19 08:14 09/10/19 08:14 09/09/19 09/09/19 09/09/19 15:52 15:52 16:39 WBC 17.4 H RBC 2.27 L Hgb 6.0 L Hct 18.6 L MCV 82 MCH 26.5 L MCHC 32.4 RDW 17.8 H Plt Count 420 Seg Neutrophils % 84.8 H Carbonic Acid HCO3/H2CO3 Ratio ABG pH ABG pCO2 ABG pO2 ABG HCO3 ABG O2 Saturation ABG Base Excess FiO2 Sodium 129.3 L Potassium 5.0 Chloride 91 L Carbon Dioxide 25 Anion Gap 13 BUN 30 H Creatinine 1.23 Est GFR ( Amer) 52 L Glucose 115 H Lactic Acid Calcium 9.2 Phosphorus Magnesium Ferritin Total Bilirubin 0.5 AST 50 H Alkaline Phosphatase 79 C-Reactive Protein Total Protein 7.1 Albumin 4.4 Lipase 104.6 TSH Urine Color Urine Appearance Urine pH Ur Specific [place] Urine Protein Urine Glucose (UA) Urine Ketones Urine Blood Urine Nitrite Ur Leukocyte Esterase Urine WBC (Auto) Urine RBC (Auto) Blood Type O POSITIVE Antibody Screen NEGATIVE 09/09/19 09/09/19 09/09/19 17:51 17:51 17:51 WBC RBC Hgb Hct MCV MCH MCHC RDW Plt Count Seg Neutrophils % Carbonic Acid 1.65 H HCO3/H2CO3 Ratio 8:1 ABG pH 7.02 L* ABG pCO2 54.7 H ABG pO2 166.7 H ABG HCO3 13.8 L ABG O2 Saturation 98.2 H ABG Base Excess -16.4 FiO2 100% Sodium Potassium Chloride Carbon Dioxide Anion Gap BUN Creatinine Est GFR ( Amer) Glucose Lactic Acid 12.7 H Calcium Phosphorus Magnesium Ferritin 6.93 L Total Bilirubin AST Alkaline Phosphatase C-Reactive Protein 11.6 H Total Protein Albumin Lipase TSH Urine Color Urine Appearance Urine pH Ur Specific [place] Urine Protein Urine Glucose (UA) Urine Ketones Urine Blood Urine Nitrite Ur Leukocyte Esterase Urine WBC (Auto) Urine RBC (Auto) Blood Type Antibody Screen 09/09/19 09/09/19 09/09/19 17:51 20:25 22:40 WBC RBC Hgb Hct MCV MCH MCHC RDW Plt Count Seg Neutrophils % Carbonic Acid 1.19 HCO3/H2CO3 Ratio 14:1 ABG pH 7.25 L ABG pCO2 39.4 ABG pO2 349.9 H ABG HCO3 16.8 L ABG O2 Saturation 99.7 H ABG Base Excess -9.7 FiO2 100% Sodium 130.2 L Potassium 4.5 Chloride 94 L Carbon Dioxide 25 Anion Gap 11 BUN 31 H Creatinine 1.33 H Est GFR ( Amer) 48 L Glucose 99 Lactic Acid Calcium 8.6 Phosphorus 9.6 H Magnesium 2.8 H Ferritin Total Bilirubin AST Alkaline Phosphatase C-Reactive Protein Total Protein Albumin Lipase TSH Urine Color Urine Appearance Urine pH Ur Specific [place] Urine Protein Urine Glucose (UA) Urine Ketones Urine Blood Urine Nitrite Ur Leukocyte Esterase Urine WBC (Auto) Urine RBC (Auto) Blood Type Antibody Screen 09/09/19 09/09/19 09/09/19 22:40 23:20 23:20 WBC 24.6 H RBC 2.91 L Hgb 8.0 L Hct 24.4 L MCV 84 MCH 27.6 MCHC 32.8 RDW 16.3 H Plt Count 281 Seg Neutrophils % Carbonic Acid 1.54 H HCO3/H2CO3 Ratio 18:1 ABG pH 7.37 ABG pCO2 51.0 H ABG pO2 26.8 L* ABG HCO3 29.1 H ABG O2 Saturation 47.3 L ABG Base Excess 3.2 FiO2 35% Sodium Potassium Chloride Carbon Dioxide Anion Gap BUN Creatinine Est GFR ( Amer) Glucose Lactic Acid 3.9 H Calcium Phosphorus Magnesium Ferritin Total Bilirubin AST Alkaline Phosphatase C-Reactive Protein Total Protein Albumin Lipase TSH Urine Color Urine Appearance Urine pH Ur Specific [place] Urine Protein Urine Glucose (UA) Urine Ketones Urine Blood Urine Nitrite Ur Leukocyte Esterase Urine WBC (Auto) Urine RBC (Auto) Blood Type Antibody Screen 09/09/19 09/10/19 09/10/19 23:20 03:50 04:05 WBC RBC Hgb Hct MCV MCH MCHC RDW Plt Count Seg Neutrophils % Carbonic Acid 0.98 L HCO3/H2CO3 Ratio 25:1 ABG pH 7.50 H ABG pCO2 32.6 L ABG pO2 63.9 L ABG HCO3 24.8 H ABG O2 Saturation 94.3 ABG Base Excess 1.7 FiO2 35% Sodium 129.9 L Potassium 4.5 Chloride 97 L Carbon Dioxide 26 Anion Gap 7 BUN 33 H Creatinine 1.42 H Est GFR ( Amer) 44 L Glucose 90 Lactic Acid Calcium 8.3 L Phosphorus Magnesium Ferritin 8.56 L Total Bilirubin AST Alkaline Phosphatase C-Reactive Protein 24.6 H Total Protein Albumin Lipase TSH Urine Color YELLOW Urine Appearance SLIGHTLY-CLOUDY Urine pH 5.0 Ur Specific [place] 1.016 Urine Protein 30 H Urine Glucose (UA) NEGATIVE Urine Ketones NEGATIVE Urine Blood NEGATIVE Urine Nitrite NEGATIVE Ur Leukocyte Esterase NEGATIVE Urine WBC (Auto) 8 Urine RBC (Auto) 0 Blood Type Antibody Screen 09/10/19 09/10/19 09/10/19 04:05 04:05 04:33 WBC 14.8 H RBC 2.61 L Hgb 7.2 L Hct 21.5 L MCV 83 MCH 27.7 MCHC 33.5 RDW 16.3 H Plt Count 245 Seg Neutrophils % 80.9 H Carbonic Acid 1.08 HCO3/H2CO3 Ratio 24:1 ABG pH 7.48 H ABG pCO2 35.9 ABG pO2 31.8 L* ABG HCO3 26.0 H ABG O2 Saturation 66.1 L ABG Base Excess 2.3 FiO2 30% Sodium Potassium Chloride Carbon Dioxide Anion Gap BUN Creatinine Est GFR ( Amer) Glucose Lactic Acid 1.4 Calcium Phosphorus Magnesium Ferritin Total Bilirubin AST Alkaline Phosphatase C-Reactive Protein Total Protein Albumin Lipase TSH Urine Color Urine Appearance Urine pH Ur Specific [place] Urine Protein Urine Glucose (UA) Urine Ketones Urine Blood Urine Nitrite Ur Leukocyte Esterase Urine WBC (Auto) Urine RBC (Auto) Blood Type Antibody Screen 09/10/19 09/10/19 09/10/19 08:14 08:14 08:14 WBC 13.6 H RBC 3.05 L Hgb 8.5 L Hct 25.2 L MCV 83 MCH 27.8 MCHC 33.7 RDW 16.1 H Plt Count 232 Seg Neutrophils % Carbonic Acid HCO3/H2CO3 Ratio ABG pH ABG pCO2 ABG pO2 ABG HCO3 ABG O2 Saturation ABG Base Excess FiO2 Sodium 131.6 L Potassium 4.4 Chloride 99 Carbon Dioxide 26 Anion Gap 7 BUN 32 H Creatinine 1.41 H Est GFR ( Amer) 45 L Glucose 100 Lactic Acid Calcium 8.3 L Phosphorus Magnesium Ferritin Total Bilirubin AST Alkaline Phosphatase C-Reactive Protein Total Protein Albumin Lipase TSH 3.22 Urine Color Urine Appearance Urine pH Ur Specific [place] Urine Protein Urine Glucose (UA) Urine Ketones Urine Blood Urine Nitrite Ur Leukocyte Esterase Urine WBC (Auto) Urine RBC (Auto) Blood Type Antibody Screen 09/09/19 09/09/19 09/10/19 17:51 22:40 04:33 Troponin I 2.860 4.710 10.200 NT-Pro-B Natriuret Pep 6880 H 09/10/19 08:14 Troponin I 10.800 NT-Pro-B Natriuret Pep Impressions: Chest X-Ray 09/09/19 00:00 IMPRESSION: 1. Cardiomegaly and pulmonary vascular congestion. Mild prominence of the interstitial markings in the lungs may be on the basis of edema. 2. In the right infrahilar region, increased airspace disease may represent infiltrate. Chest/Abdomen CTA 09/09/19 00:00 IMPRESSION: 1. No pulmonary embolism. No aortic aneurysm or dissection. 2. Moderate bilateral pleural effusions with diffuse groundglass opacification suggestive of pulmonary edema. There is more focal consolidation in the lower lobes which may represent atelectasis or more focal bacterial pneumonia. In addition there are scattered groundglass opacification present in a more nodular appearance bilaterally raising the possibility of viral pneumonia. EXAM DESCRIPTION: CT angiogram of the chest CLINICAL HISTORY: 69 years Female; esophageal upper GI bleed. Epigastric pain. TECHNIQUE: CT angiogram of the abdomen and pelvis using intravenous contrast.. MIP reconstructions were performed. Imaging was performed in the arterial, venous and delayed phase. All CT scans at this facility use dose modulation, iterative reconstruction, and/or weight based dosing when appropriate to reduce radiation dose to as low as reasonably achievable. COMPARISON: None. FINDINGS: ABDOMEN: Aorta: Atherosclerotic vascular plaque is identified in the thoracic aorta. No dissection. No aneurysm. Celiac: Normal SMA: Normal Left renal: Normal Right renal: Large volume of plaque is seen at the origin of the renal artery and there is probable narrowing of the right renal artery. Liver: Homogeneous enhancement of the liver is seen. The hepatic arteries are patent. Portal vein is patent. No mass. Gallbladder is unremarkable. No biliary dilatation. Pancreas:Within normal limits Spleen:Within normal limits Kidneys: Kidneys are normal in size shape and position. No stones or hydronephrosis. No acute process. Symmetric renal enhancement is present bilaterally. There is a 10 mm low density area in the left kidney consistent with a simple cyst. Adrenal glands:Within normal limits GI: NG tube is in the stomach. No obvious contrast extravasation is seen into the stomach. There is hyperdense material in the bowel consistent with ingested material. This makes evaluation of hemorrhage into the bowel very limited. There is moderate stool in the colon. No bowel wall thickening. No focal caliber change or inflammation. appendix: The appendix is not clearly seen. Abdominal wall: Unremarkable Retroperitoneal: Small, nonspecific lymph nodes are present in the retroperitoneum. These do not meet size criteria for pathologic process. General: No free air. No free fluid. PELVIS: Right: Arterial phase imaging of the lower abdomen and pelvis was not performed. There is extensive atherosclerotic plaque in the common iliac artery and there may be a high-grade stenosis. Patency is not assessed. Left : Large volume of plaque is seen in the common iliac artery. Patency is not assessed since the pelvis was not imaged in the arterial phase. Bones: Vacuum discs are seen in the lower lumbar spine. No destructive bone lesions. Bladder: A Muñoz catheter is present in the bladder and the bladder is empty. There are small pockets of air in the bladder from the catheter. The superior aspect of the bladder extends towards the umbilicus consistent with a urachal remnant. Pelvis: No pelvic mass or adenopathy. IMPRESSION: 1. No active contrast extravasation is seen. 2. 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 3. No acute process is seen in the abdomen or pelvis. KUB X-Ray 09/09/19 00:00 IMPRESSION: Nasogastric tube tip is in the stomach. Abdomen Ultrasound 09/09/19 15:43 IMPRESSION: NORMAL RIGHT UPPER QUADRANT ULTRASOUND. Abdomen/Pelvis CTA 09/09/19 18:49 IMPRESSION: 1. No pulmonary embolism. No aortic aneurysm or dissection. 2. Moderate bilateral pleural effusions with diffuse groundglass opacification suggestive of pulmonary edema. There is more focal consolidation in the lower lobes which may represent atelectasis or more focal bacterial pneumonia. In addition there are scattered groundglass opacification present in a more nodular appearance bilaterally raising the possibility of viral pneumonia. EXAM DESCRIPTION: CT angiogram of the chest CLINICAL HISTORY: 69 years Female; esophageal upper GI bleed. Epigastric pain. TECHNIQUE: CT angiogram of the abdomen and pelvis using intravenous contrast.. MIP reconstructions were performed. Imaging was performed in the arterial, venous and delayed phase. All CT scans at this facility use dose modulation, iterative reconstruction, and/or weight based dosing when appropriate to reduce radiation dose to as low as reasonably achievable. COMPARISON: None. FINDINGS: ABDOMEN: Aorta: Atherosclerotic vascular plaque is identified in the thoracic aorta. No dissection. No aneurysm. Celiac: Normal SMA: Normal Left renal: Normal Right renal: Large volume of plaque is seen at the origin of the renal artery and there is probable narrowing of the right renal artery. Liver: Homogeneous enhancement of the liver is seen. The hepatic arteries are patent. Portal vein is patent. No mass. Gallbladder is unremarkable. No biliary dilatation. Pancreas:Within normal limits Spleen:Within normal limits Kidneys: Kidneys are normal in size shape and position. No stones or hydronephrosis. No acute process. Symmetric renal enhancement is present bilaterally. There is a 10 mm low density area in the left kidney consistent with a simple cyst. Adrenal glands:Within normal limits GI: NG tube is in the stomach. No obvious contrast extravasation is seen into the stomach. There is hyperdense material in the bowel consistent with ingested material. This makes evaluation of hemorrhage into the bowel very limited. There is moderate stool in the colon. No bowel wall thickening. No focal caliber change or inflammation. appendix: The appendix is not clearly seen. Abdominal wall: Unremarkable Retroperitoneal: Small, nonspecific lymph nodes are present in the retroperitoneum. These do not meet size criteria for pathologic process. General: No free air. No free fluid. PELVIS: Right: Arterial phase imaging of the lower abdomen and pelvis was not performed. There is extensive atherosclerotic plaque in the common iliac artery and there may be a high-grade stenosis. Patency is not assessed. Left : Large volume of plaque is seen in the common iliac artery. Patency is not assessed since the pelvis was not imaged in the arterial phase. Bones: Vacuum discs are seen in the lower lumbar spine. No destructive bone lesions. Bladder: A Muñoz catheter is present in the bladder and the bladder is empty. There are small pockets of air in the bladder from the catheter. The superior aspect of the bladder extends towards the umbilicus consistent with a urachal remnant. Pelvis: No pelvic mass or adenopathy. IMPRESSION: 1. No active contrast extravasation is seen. 2. 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 3. No acute process is seen in the abdomen or pelvis. EKG: Paced All labs, radiographs, diagnostic studies and EKGs were personally reviewed: Yes In addition, reports of radiographic and diagnostic studies were read: Yes Assessment and Plan - Diagnosis (1) Anemia Qualifiers: Anemia type: unspecified type Qualified Code(s): D64.9 - Anemia, unspecified Is this a current diagnosis for this admission?: Yes Plan: There does not seem to be any obvious bleeding. No sign of UGI bleeding. Stop protonix drip. Only prophylaxis. Await hemolysis labs. Hbg 8.3. (2) Diabetes mellitus with hyperglycemia Qualifiers: Diabetes mellitus type: type 2 Diabetes mellitus retirement insulin use: unspecified middle or intermediate school principal insulin use status Qualified Code(s): E11.65 - Type 2 diabetes mellitus with hyperglycemia Is this a current diagnosis for this admission?: Yes Plan: Glucose 100 now. Controlled. (3) Elevated troponin I level Is this a current diagnosis for this admission?: Yes Plan: Level is 10 likely as a result of anemia. Has been seen by Dr. Brenner. (4) Suspected COVID-19 virus infection Is this a current diagnosis for this admission?: Yes Plan: Doubtful. Await testing results. Plan Summary: Stop milrinone with an EF of 50%. Wean vent. Critical Time Critical Time (minutes): 35 Level of Care: ICU Anticipated discharge: Home Within: Other -: 1. The care of a critical patient is a dynamic process. This note is a group sales representative synopsis but static in nature. The timeframe for treatments g iven in order is not necessarily the actual time these treatments may have been done. 2. This patient requires critical care secondary to ongoing requirements for therapy not offered or safe outside the critical care environment. Transfer to a lower level of care will result in altered life or limb morbidity and mortality. 3. Multidisciplinary rounds completed. 4. ABCDE bundle addressed.
[2019-09-10] MEDS: PANTOPRAZOLE SODIUM 40 MG VIAL IV SCH (11:27)
[2019-09-10] MEDS: VANCOMYCIN HCL 1,000 MG in DEXTROSE 5%-WATER 250 ML IV SCH (11:27)
--- NOTE | 2019-09-10 12:24 | EKG REPORT ---
SEVERITY:- ABNORMAL ECG - ATRIAL-SENSED VENTRICULAR-PACED COMPLEXES RIGHT AXIS DEVIATION LOW VOLTAGE IN FRONTAL LEADS PROLONGED QT INTERVAL : Confirmed by: Denny Sandhu MD 10-Sep-2019 12:24:09
[2019-09-10] MEDS: GABAPENTIN 300 MG CAPSULE PO SCH ×2 (14:01→21:54)
[2019-09-10] MEDS ORDERED: FUROSEMIDE 40 MG TABLET PO SCH (15:00)
[2019-09-10 16:50] LABS: ARTERIAL BLOOD BASE EXCESS -3.3 mmol/L; ARTERIAL BLOOD FIO2 6L; ARTERIAL BLOOD HCO3 23.1 mmol/L (20-24); ARTERIAL BLOOD O2 SATURATION 79.4 % (94-98); ARTERIAL BLOOD PCO2 46.5 mmHg (35-45); ARTERIAL BLOOD PH 7.31 (7.35-7.45); ARTERIAL BLOOD PO2 47.3 mmHg (80-100); ARTERIAL BLOOD TOTAL CO2 24.5 mmol/L (21-25)
[2019-09-10] MEDS ORDERED: FUROSEMIDE INJ/PF 40 MG/4 ML SDV ONE (16:55)
[2019-09-10] MEDS ORDERED: METHYLPREDNISOLONE INJ 125 MG/2 ML SDV ONE (16:58)
[2019-09-10] MEDS ORDERED: ALBUTEROL SULFATE 0.083% NEB 2.5 MG/3 ML AMPUL NEB ONE (17:03)
[2019-09-10] MEDS: DOCUSATE SODIUM 100 MG CAPSULE PO SCH (17:32)
[2019-09-10] MEDS: FUROSEMIDE 40 MG TABLET PO SCH (17:32)
[2019-09-10] MEDS ORDERED: ETOMIDATE INJ/PF 20 MG/10 ML SDV IV ONE ×2 (17:37→19:50)
--- NOTE | 2019-09-10 17:40 | RADIOLOGY REPORT (SQ) ---
EXAM DESCRIPTION: CHEST SINGLE VIEW IMAGES COMPLETED DATE/TIME: 09/10/2019 5:29 pm REASON FOR STUDY: Sudden respiratory decompensation COMPARISON: 09/09/2019 EXAM PARAMETERS: NUMBER OF VIEWS: One view. TECHNIQUE: Single frontal radiographic view of the chest acquired. RADIATION DOSE: NA LIMITATIONS: None. FINDINGS: LUNGS AND PLEURA: Bilateral prominent interstitial markings suggest edema. Small bilater al pleural effusions. Right infrahilar opacity may represent infiltrate. No pneumothorax. MEDIASTINUM AND HILAR STRUCTURES: No masses. Contour normal. HEART AND VASCULAR STRUCTURES: Cardiomegaly, unchanged finding. Interval marked progression of pulm onary vascular congestion. BONES: No acute findings. HARDWARE: Interval placement of right internal jugular venous line with the tip in the region of the superior vena cava. Cardiac pacemaker, unchanged finding. OTHER: No other significant finding. IMPRESSION: 1. Interval worsening in the appearance of the lungs since the prior study dated 020. Interval progression of pulmonary vascular congestion, interstitial edema. Small bilateral ple ural effusions. 2. Interval placement of right internal jugular venous catheter with the tip in the region of the haynes perior vena cava. No pneumothorax. 3. Right infrahilar opacity, unchanged in appearance, infiltrate not entirely excluded. TECHNICAL DOCUMENTATION: JOB ID: [id number] 2010 [employer]- All Rights Reserved Reading location - IP/workstation name: [email or web address]
[2019-09-10] MEDS: PROPOFOL 1,000 MG/100 ML INFUS..BTL IV PRN (18:00)
[2019-09-10] MEDS ORDERED: PROPOFOL 1,000 MG/100 ML INFUS..BTL IV ONE (18:00)
--- NOTE | 2019-09-10 18:19 | Progress Note ---
Provider Note Provider Note: Patient suddenly decompensated from a respiratory standpoint. She was extubated and was doing well but develo[ed increasing WOB. She did not sepond to milrinoe, lasix, albuterol and was rapidly going into distress. She was found to have stridor. Her status was too tenous to try racemic epinephrine and she was reint ubated with a 7.5 ETT and placed back on the same settings. Steroids ordered
--- NOTE | 2019-09-10 18:37 | RADIOLOGY REPORT (SQ) ---
EXAM DESCRIPTION: CHEST SINGLE VIEW IMAGES COMPLETED DATE/TIME: 09/10/2019 6:29 pm REASON FOR STUDY: Placement of ETT. Pt intubated. COMPARISON: 09/09/2016 EXAM PARAMETERS: NUMBER OF VIEWS: One view TECHNIQUE: Single frontal radiograph of the chest. RADIATION DOSE: N/A LIMITATIONS: None. FINDINGS: TEMPORARY SUPPORT DEVICES:ETT in expected location. NG tube courses below the bonifacio-diaphr agm in to the stomach. Central venous access catheter tip is in expected location. LUNGS AND PLEURA: Basilar opacities particularly on the left bilateral effusions Seth B-lines No pn eumothorax. MEDIASTINUM AND HILAR STRUCTURES: No masses. Contour normal. HEART AND VASCULAR STRUCTURES: Heart enlarged. Interstitial pulmonary edema. Aorta normal for age. BONES: No acute findings. OTHER: Pacemaker IMPRESSION: Congestive heart failure and interstitial pulmonary edema. Bilateral pleural effusions. SUPPORT DEVICE(S) IN EXPECTED LOCATIONS. TECHNICAL DOCUMENTATION: JOB ID: [id number] 2010 [employer]- All Rights Reserved Reading location - IP/workstation name: [email or web address]
[2019-09-10 20:15] LABS: ARTERIAL BLOOD BASE EXCESS -3.7 mmol/L; ARTERIAL BLOOD H2CO3 1.07 mmol/L (1.05-1.35); ARTERIAL BLOOD HCO3 20.8 mmol/L (20-24); ARTERIAL BLOOD O2 SATURATION 96.9 % (94-98); ARTERIAL BLOOD PCO2 35.4 mmHg (35-45); ARTERIAL BLOOD PH 7.39 (7.35-7.45); ARTERIAL BLOOD PO2 90.3 mmHg (80-100); ARTERIAL BLOOD TOTAL CO2 21.9 mmol/L (21-25)
[2019-09-10 20:16] LABS: ARTERIAL BLOOD FIO2 6L
[2019-09-10] MEDS ORDERED: METHYLPREDNISOLONE INJ 125 MG/2 ML SDV IV ONE (20:30)
[2019-09-10] MEDS ORDERED: FUROSEMIDE INJ/PF 40 MG/4 ML SDV IV ONE (20:30)
[2019-09-10 20:51] LABS: HEMATOCRIT 26.8 % (36.0-47.0); HEMOGLOBIN 8.9 g/dL (12.0-15.5); MEAN CORPUSCULAR HEMOGLOBIN 27.7 pg (27.0-33.4); MEAN CORPUSCULAR HGB CONC 33.3 g/dL (32.0-36.0); MEAN CORPUSCULAR VOLUME 83 fl (80-97); PLATELET COUNT 246 10^3/uL (150-450); RED BLOOD COUNT 3.22 10^6/uL (3.72-5.28); RED CELL DISTRIBUTION WIDTH 16.7 % (11.5-14.0); WHITE BLOOD COUNT 22.2 10^3/uL (4.0-10.5)
[2019-09-10 21:03] LABS: ANION GAP 8 (5-19); BLOOD UREA NITROGEN 27 mg/dL (7-20); CALCIUM 8.1 mg/dL (8.4-10.2); CARBON DIOXIDE 25 mmol/L (22-30); CHLORIDE 99 mmol/L (98-107); GLUCOSE 214 mg/dL (75-110); POTASSIUM 4.3 mmol/L (3.6-5.0)
[2019-09-10] MEDS: ATORVASTATIN CALCIUM 10 MG TABLET PO SCH (21:54)
[2019-09-11] MEDS: INSULIN REG, HUMAN 100 UNIT/ML 3 ML VIAL (PYX) SUBCUT SCH ×4 (00:03→19:57)
[2019-09-11] MEDS: PROPOFOL 1,000 MG/100 ML INFUS..BTL IV PRN ×4 (00:07→16:20)
[2019-09-11] MEDS: NORMAL SALINE 1000 ML 1,000 ML IV PRN (01:37)
[2019-09-11 04:49] LABS: ANION GAP 6 (5-19); BLOOD UREA NITROGEN 26 mg/dL (7-20); CALCIUM 8.4 mg/dL (8.4-10.2); CARBON DIOXIDE 25 mmol/L (22-30); CHLORIDE 102 mmol/L (98-107); GLUCOSE 144 mg/dL (75-110); PHOSPHORUS 4.5 mg/dL (2.5-4.5); POTASSIUM 4.2 mmol/L (3.6-5.0)
[2019-09-11 04:54] LABS: HEMATOCRIT 25.2 % (36.0-47.0); HEMOGLOBIN 8.6 g/dL (12.0-15.5); MEAN CORPUSCULAR HEMOGLOBIN 27.9 pg (27.0-33.4); MEAN CORPUSCULAR HGB CONC 33.9 g/dL (32.0-36.0); MEAN CORPUSCULAR VOLUME 82 fl (80-97); PLATELET COUNT 223 10^3/uL (150-450); RED BLOOD COUNT 3.07 10^6/uL (3.72-5.28); RED CELL DISTRIBUTION WIDTH 16.6 % (11.5-14.0); WHITE BLOOD COUNT 14.8 10^3/uL (4.0-10.5)
[2019-09-11] MEDS: CEFEPIME HCL 2 GM in DEXTROSE 5%-WATER 50 ML IV SCH ×2 (05:10→19:58)
[2019-09-11 05:11] LABS: ABSOLUTE LYMPHOCYTES# (MANUAL) 0.3 10^3/uL (0.5-4.7); ABSOLUTE MONOCYTES # (MANUAL) 0.1 10^3/uL (0.1-1.4); ANISOCYTOSIS SLIGHT; BASOPHILS % (MANUAL) 0 % (0-2); EOSINOPHILS % (MANUAL) 0 % (0-6); LYMPHOCYTES % (MANUAL) 2 % (13-45); MONOCYTES % (MANUAL) 1 % (3-13); SEGMENTED NEUTROPHILS % (MAN) 97 % (42-78); TOTAL CELLS COUNTED 100
[2019-09-11 05:13] LABS: HYPOCHROMASIA SLIGHT; OVALOCYTES SLIGHT; PLATELET COMMENT ADEQUATE
[2019-09-11] MEDS: GABAPENTIN 300 MG CAPSULE PO SCH ×3 (08:56→21:43)
[2019-09-11] MEDS: FUROSEMIDE 40 MG TABLET PO SCH ×2 (08:56→19:57)
[2019-09-11] MEDS: AMLODIPINE BESYLATE 10 MG TABLET PO SCH (09:09)
[2019-09-11] MEDS: PANTOPRAZOLE SODIUM 40 MG VIAL IV SCH (09:09)
[2019-09-11] MEDS: AZITHROMYCIN 500 MG in DEXTROSE 5%-WATER 250 ML IV SCH (09:10)
[2019-09-11] MEDS ORDERED: ENOXAPARIN SODIUM INJ 40 MG/0.4 ML DISP.SYRIN SUBCUT SCH (10:00)
[2019-09-11] MEDS: VANCOMYCIN HCL 1,000 MG in DEXTROSE 5%-WATER 250 ML IV SCH (11:23)
--- NOTE | 2019-09-11 12:43 | PDOC CRITICAL CARE PROG REPORT ---
General Date:: 09/11/19 ICU Day:: 2 Ventilator Day:: 2 Hospital Day:: 2 Resuscitation Status: Full Code Events in the past 12 to 24 Hours:: Reitubated for stridor. Review of systems relevant to events:: Respiratory Reason for ICU Addmission:: Acute hypoxic respiratory failure. Intubated. - Medications: Medications reviewed and adjusted accordingly: Yes Vasopressors:: None Sedation:: Propofol Physical Exam Vital Signs: Temp Pulse Resp BP Pulse Ox 98.1 F 75 14 133/57 H 99 09/11/19 04:00 09/11/19 07:46 09/11/19 12:00 09/11/19 11:53 09/11/19 12:00 Intake & Output 09/10/19 09/11/19 09/12/19 06:59 06:59 06:59 Intake Total 1137 3219 350 Output Total 385 1395 635 Balance 752 1824 -285 Weight 71.9 kg 73.1 kg 73.1 kg Weight/Height Weight 73.1 kg Height 5 ft 5 in General appearance: PRESENT: no acute distress Head exam: PRESENT: atraumatic, normocephalic Eye exam: PRESENT: conjunctiva pink, EOMI, PERRLA. ABSENT: scleral icterus Ear exam: PRESENT: normal external ear exam Mouth exam: PRESENT: moist, tongue midline Respiratory exam: PRESENT: unlabored Cardiovascular exam: PRESENT: RRR. ABSENT: diastolic murmur, rubs, systolic murmur GI/Abdominal exam: PRESENT: normal bowel sounds, soft. ABSENT: distended, guarding, mass, organolmegaly, rebound, tenderness Rectal exam: PRESENT: deferred Gentrourinary exam: PRESENT: indwelling catheter Extremities exam: PRESENT: full ROM. ABSENT: calf tenderness, clubbing, pedal edema Neurological exam: PRESENT: other - Sedated Skin exam: PRESENT: dry, intact, warm. ABSENT: cyanosis, rash Tubes/Lines: PRESENT: Endotracheal Tube, Arterial Catheter, Nasogastic Tube Laboratory/Radiographs Laboratory Results: 09/11/19 04:23 09/11/19 04:23 09/10/19 09/10/19 09/10/19 16:41 20:01 20:01 WBC RBC Hgb Hct MCV MCH MCHC RDW Plt Count Seg Neutrophils % Carbonic Acid 1.40 H HCO3/H2CO3 Ratio 16:1 ABG pH 7.31 L ABG pCO2 46.5 H ABG pO2 47.3 L ABG HCO3 23.1 ABG O2 Saturation 79.4 L ABG Base Excess -3.3 FiO2 6L Sodium 131.6 L Potassium 4.3 Chloride 99 Carbon Dioxide 25 Anion Gap 8 BUN 27 H Creatinine 1.22 Est GFR ( Amer) 53 L Glucose 214 H Calcium 8.1 L Phosphorus Magnesium Triglycerides 132 09/10/19 09/10/19 09/11/19 20:01 20:01 04:23 WBC 22.2 H RBC 3.22 L Hgb 8.9 L Hct 26.8 L MCV 83 MCH 27.7 MCHC 33.3 RDW 16.7 H Plt Count 246 Seg Neutrophils % Carbonic Acid 1.07 HCO3/H2CO3 Ratio 19:1 ABG pH 7.39 ABG pCO2 35.4 ABG pO2 90.3 ABG HCO3 20.8 ABG O2 Saturation 96.9 ABG Base Excess -3.7 FiO2 6L Sodium 133.1 L Potassium 4.2 Chloride 102 Carbon Dioxide 25 Anion Gap 6 BUN 26 H Creatinine 0.96 Est GFR ( Amer) > 60 Glucose 144 H Calcium 8.4 Phosphorus 4.5 Magnesium 2.6 H Triglycerides 09/11/19 04:23 WBC 14.8 H RBC 3.07 L Hgb 8.6 L Hct 25.2 L MCV 82 MCH 27.9 MCHC 33.9 RDW 16.6 H Plt Count 223 Seg Neutrophils % Not Reportable Carbonic Acid HCO3/H2CO3 Ratio ABG pH ABG pCO2 ABG pO2 ABG HCO3 ABG O2 Saturation ABG Base Excess FiO2 Sodium Potassium Chloride Carbon Dioxide Anion Gap BUN Creatinine Est GFR ( Amer) Glucose Calcium Phosphorus Magnesium Triglycerides 09/09/19 23:20 Muñoz Catheter Urine Culture - Final Escherichia Coli 09/09/19 09/09/19 09/10/19 17:51 22:40 04:33 Troponin I 2.860 4.710 10.200 NT-Pro-B Natriuret Pep 6880 H 09/10/19 09/10/19 08:14 20:00 Troponin I 10.800 3.800 NT-Pro-B Natriuret Pep Impressions: Chest/Abdomen CTA 09/09/19 00:00 IMPRESSION: 1. No pulmonary embolism. No aortic aneurysm or dissection. 2. Moderate bilateral pleural effusions with diffuse groundglass opacification suggestive of pulmonary edema. There is more focal consolidation in the lower lobes which may represent atelectasis or more focal bacterial pneumonia. In addition there are scattered groundglass opacification present in a more nodular appearance bilaterally raising the possibility of viral pneumonia. EXAM DESCRIPTION: CT angiogram of the chest CLINICAL HISTORY: 69 years Female; esophageal upper GI bleed. Epigastric pain. TECHNIQUE: CT angiogram of the abdomen and pelvis using intravenous contrast.. MIP reconstructions were performed. Imaging was performed in the arterial, venous and delayed phase. All CT scans at this facility use dose modulation, iterative reconstruction, and/or weight based dosing when appropriate to reduce radiation dose to as low as reasonably achievable. COMPARISON: None. FINDINGS: ABDOMEN: Aorta: Atherosclerotic vascular plaque is identified in the thoracic aorta. No dissection. No aneurysm. Celiac: Normal SMA: Normal Left renal: Normal Right renal: Large volume of plaque is seen at the origin of the renal artery and there is probable narrowing of the right renal artery. Liver: Homogeneous enhancement of the liver is seen. The hepatic arteries are patent. Portal vein is patent. No mass. Gallbladder is unremarkable. No biliary dilatation. Pancreas:Within normal limits Spleen:Within normal limits Kidneys: Kidneys are normal in size shape and position. No stones or hydronephrosis. No acute process. Symmetric renal enhancement is present bilaterally. There is a 10 mm low density area in the left kidney consistent with a simple cyst. Adrenal glands:Within normal limits GI: NG tube is in the stomach. No obvious contrast extravasation is seen into the stomach. There is hyperdense material in the bowel consistent with ingested material. This makes evaluation of hemorrhage into the bowel very limited. There is moderate stool in the colon. No bowel wall thickening. No focal caliber change or inflammation. appendix: The appendix is not clearly seen. Abdominal wall: Unremarkable Retroperitoneal: Small, nonspecific lymph nodes are present in the retroperitoneum. These do not meet size criteria for pathologic process. General: No free air. No free fluid. PELVIS: Right: Arterial phase imaging of the lower abdomen and pelvis was not performed. There is extensive atherosclerotic plaque in the common iliac artery and there may be a high-grade stenosis. Patency is not assessed. Left : Large volume of plaque is seen in the common iliac artery. Patency is not assessed since the pelvis was not imaged in the arterial phase. Bones: Vacuum discs are seen in the lower lumbar spine. No destructive bone lesions. Bladder: A Muñoz catheter is present in the bladder and the bladder is empty. There are small pockets of air in the bladder from the catheter. The superior aspect of the bladder extends towards the umbilicus consistent with a urachal remnant. Pelvis: No pelvic mass or adenopathy. IMPRESSION: 1. No active contrast extravasation is seen. 2. 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 3. No acute process is seen in the abdomen or pelvis. KUB X-Ray 09/09/19 00:00 IMPRESSION: Nasogastric tube tip is in the stomach. Abdomen Ultrasound 09/09/19 15:43 IMPRESSION: NORMAL RIGHT UPPER QUADRANT ULTRASOUND. Abdomen/Pelvis CTA 09/09/19 18:49 IMPRESSION: 1. No pulmonary embolism. No aortic aneurysm or dissection. 2. Moderate bilateral pleural effusions with diffuse groundglass opacification suggestive of pulmonary edema. There is more focal consolidation in the lower lobes which may represent atelectasis or more focal bacterial pneumonia. In addition there are scattered groundglass opacification present in a more nodular appearance bilaterally raising the possibility of viral pneumonia. EXAM DESCRIPTION: CT angiogram of the chest CLINICAL HISTORY: 69 years Female; esophageal upper GI bleed. Epigastric pain. TECHNIQUE: CT angiogram of the abdomen and pelvis using intravenous contrast.. MIP reconstructions were performed. Imaging was performed in the arterial, venous and delayed phase. All CT scans at this facility use dose modulation, iterative reconstruction, and/or weight based dosing when appropriate to reduce radiation dose to as low as reasonably achievable. COMPARISON: None. FINDINGS: ABDOMEN: Aorta: Atherosclerotic vascular plaque is identified in the thoracic aorta. No dissection. No aneurysm. Celiac: Normal SMA: Normal Left renal: Normal Right renal: Large volume of plaque is seen at the origin of the renal artery and there is probable narrowing of the right renal artery. Liver: Homogeneous enhancement of the liver is seen. The hepatic arteries are patent. Portal vein is patent. No mass. Gallbladder is unremarkable. No biliary dilatation. Pancreas:Within normal limits Spleen:Within normal limits Kidneys: Kidneys are normal in size shape and position. No stones or hydronephrosis. No acute process. Symmetric renal enhancement is present bilaterally. There is a 10 mm low density area in the left kidney consistent with a simple cyst. Adrenal glands:Within normal limits GI: NG tube is in the stomach. No obvious contrast extravasation is seen into the stomach. There is hyperdense material in the bowel consistent with ingested material. This makes evaluation of hemorrhage into the bowel very limited. There is moderate stool in the colon. No bowel wall thickening. No focal caliber change or inflammation. appendix: The appendix is not clearly seen. Abdominal wall: Unremarkable Retroperitoneal: Small, nonspecific lymph nodes are present in the retroperitoneum. These do not meet size criteria for pathologic process. General: No free air. No free fluid. PELVIS: Right: Arterial phase imaging of the lower abdomen and pelvis was not performed. There is extensive atherosclerotic plaque in the common iliac artery and there may be a high-grade stenosis. Patency is not assessed. Left : Large volume of plaque is seen in the common iliac artery. Patency is not assessed since the pelvis was not imaged in the arterial phase. Bones: Vacuum discs are seen in the lower lumbar spine. No destructive bone lesions. Bladder: A Muñoz catheter is present in the bladder and the bladder is empty. There are small pockets of air in the bladder from the catheter. The superior aspect of the bladder extends towards the umbilicus consistent with a urachal remnant. Pelvis: No pelvic mass or adenopathy. IMPRESSION: 1. No active contrast extravasation is seen. 2. 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 3. No acute process is seen in the abdomen or pelvis. Chest X-Ray 09/10/19 17:59 IMPRESSION: Congestive heart failure and interstitial pulmonary edema. Bilateral pleural effusions. SUPPORT DEVICE(S) IN EXPECTED LOCATIONS. All labs, radiographs, diagnostic studies and EKGs were personally reviewed: Yes In addition, reports of radiographic and diagnostic studies were read: Yes Assessment and Plan - Diagnosis (1) Anemia Qualifiers: Anemia type: unspecified type Qualified Code(s): D64.9 - Anemia, unspecified Is this a current diagnosis for this admission?: Yes Plan: Resolved but source still not clear. (2) Diabetes mellitus with hyperglycemia Qualifiers: Diabetes mellitus type: type 2 Diabetes mellitus fci insulin use: unspecified fci insulin use status Qualified Code(s): E11.65 - Type 2 diabetes mellitus with hyperglycemia Is this a current diagnosis for this admission?: Yes Plan: Controlled (3) Elevated troponin I level Is this a current diagnosis for this admission?: Yes Plan: Troponin down tp 3. Will need stress test or catheterization when better. (4) Suspected COVID-19 virus infection Is this a current diagnosis for this admission?: Yes Plan: Test results negative. Plan Summary: Give full 24 hours of steroids then try to extubate tomorrrow. Critical Time Critical Time (minutes): 40 Level of Care: ICU Anticipated discharge: Home Within: Other -: 1. The care of a critical patient is a dynamic process. This note is a re presentative synopsis but static in nature. The timeframe for treatments given in order is not necessarily the actual time these treatments may have been done. 2. This patient requires critical care secondary to ongoing requirements for therapy not offered or safe outside the critical care environment. Transfer to a lower level of care will result in altered life or limb morbidity and mortalit y. 3. Multidisciplinary rounds completed. 4. ABCDE bundle addressed.
--- NOTE | 2019-09-11 12:49 | Progress Note ---
Provider Note Provider Note: I had a fairly long talk with her Radha. There are several issues we discussed. Although she has occassionally been updated she would like more frequent updates. She daily. They will be moving to [place] early November. She needs her heart and lungs addressed as she has smoked > 50 years and likely has COPD. This can be arranged next week. She has an EP party demonstrator Dr. Laird at [phone]. An EP nurse at [phone] from the time of her pacemaker. We should touch base closer to D/C for follow up. Total CC time 40 minutes.
[2019-09-11] MEDS: METHYLPREDNISOLONE INJ 40 MG/1 ML SDV IV SCH ×2 (13:07→21:43)
[2019-09-11] MEDS: ENOXAPARIN SODIUM INJ 40 MG/0.4 ML DISP.SYRIN SUBCUT SCH (13:07)
[2019-09-11] MEDS: DOCUSATE SODIUM 100 MG CAPSULE PO SCH (19:57)
[2019-09-11] MEDS ORDERED: MIDAZOLAM 2 MG/2 ML INJ ONE (20:37)
[2019-09-11] MEDS ORDERED: MIDAZOLAM 2 MG/2 ML INJ IV ONE (20:38)
[2019-09-11] MEDS: ATORVASTATIN CALCIUM 10 MG TABLET PO SCH (21:43)
[2019-09-12] MEDS: INSULIN REG, HUMAN 100 UNIT/ML 3 ML VIAL (PYX) SUBCUT SCH ×4 (01:05→18:33)
[2019-09-12] MEDS: CEFEPIME HCL 2 GM in DEXTROSE 5%-WATER 50 ML IV SCH ×2 (05:28→18:32)
[2019-09-12] MEDS: PROPOFOL 1,000 MG/100 ML INFUS..BTL IV PRN ×3 (06:53→10:00)
[2019-09-12 08:03] LABS: ABSOLUTE LYMPHOCYTES (AUTO) 0.6 10^3/uL (0.5-4.7); ABSOLUTE MONOCYTES (AUTO) 0.4 10^3/uL (0.1-1.4); ABSOLUTE NEUT (AUTO) 11.1 10^3/uL (1.7-8.2); ARTERIAL BLOOD BASE EXCESS 0.5 mmol/L; ARTERIAL BLOOD H2CO3 0.95 mmol/L (1.05-1.35); ARTERIAL BLOOD HCO3 23.5 mmol/L (20-24); ARTERIAL BLOOD O2 SATURATION 97.9 % (94-98); ARTERIAL BLOOD PCO2 31.5 mmHg (35-45); ARTERIAL BLOOD PH 7.49 (7.35-7.45); ARTERIAL BLOOD PO2 97.1 mmHg (80-100); ARTERIAL BLOOD TOTAL CO2 24.4 mmol/L (21-25); BASOPHILS % (AUTO) 0.2 % (0-2); HEMATOCRIT 26.4 % (36.0-47.0); LYMPHOCYTES % (AUTO) 5.3 % (13-45); MEAN CORPUSCULAR HEMOGLOBIN 27.8 pg (27.0-33.4); MEAN CORPUSCULAR HGB CONC 33.9 g/dL (32.0-36.0); MEAN CORPUSCULAR VOLUME 82 fl (80-97); MONOCYTES % (AUTO) 3.1 % (3-13); PLATELET COUNT 222 10^3/uL (150-450); RED BLOOD COUNT 3.22 10^6/uL (3.72-5.28); RED CELL DISTRIBUTION WIDTH 16.8 % (11.5-14.0); SEGMENTED NEUTROPHILS % (AUTO) 91.4 % (42-78); TOTAL CELLS COUNTED % (AUTO) 100 %; WHITE BLOOD COUNT 12.2 10^3/uL (4.0-10.5)
[2019-09-12 08:04] LABS: ARTERIAL BLOOD FIO2 50%
[2019-09-12 08:24] LABS: ANION GAP 6 (5-19); BLOOD UREA NITROGEN 22 mg/dL (7-20); CALCIUM 8.8 mg/dL (8.4-10.2); CARBON DIOXIDE 26 mmol/L (22-30); CHLORIDE 104 mmol/L (98-107); GLUCOSE 150 mg/dL (75-110); POTASSIUM 4.1 mmol/L (3.6-5.0)
[2019-09-12] MEDS: AMLODIPINE BESYLATE 10 MG TABLET PO SCH (09:25)
[2019-09-12] MEDS: METHYLPREDNISOLONE INJ 40 MG/1 ML SDV IV SCH ×2 (09:25→22:00)
[2019-09-12] MEDS: FUROSEMIDE 40 MG TABLET PO SCH ×2 (09:25→18:23)
[2019-09-12] MEDS: GABAPENTIN 300 MG CAPSULE PO SCH ×3 (09:25→21:31)
[2019-09-12] MEDS: ENOXAPARIN SODIUM INJ 40 MG/0.4 ML DISP.SYRIN SUBCUT SCH (09:26)
[2019-09-12] MEDS: PANTOPRAZOLE SODIUM 40 MG VIAL IV SCH (09:26)
[2019-09-12] MEDS: NORMAL SALINE 1000 ML 1,000 ML IV PRN (09:27)
[2019-09-12] MEDS: AZITHROMYCIN 500 MG in DEXTROSE 5%-WATER 250 ML IV SCH (11:07)
[2019-09-12] MEDS: VANCOMYCIN HCL 1,000 MG in DEXTROSE 5%-WATER 250 ML IV SCH (12:00)
--- NOTE | 2019-09-12 12:38 | PDOC PROGRESS REPORT ---
Subjective Progress Note for:: 09/12/19 Subjective:: Patient seen and examined. Extubated and then subsequently reintubated for respiratory distress. Attempt to extubate patient today. Hemodynamically stable. No more active bleeding reported. Troponin has trended down. Hemoglobin has stabilized. Reason For Visit: UGI BLEED,ANEMIA,HYPOXIA Physical Exam Vital Signs: Temp Pulse Resp BP Pulse Ox 98.1 F 96 21 H 153/72 H 98 09/11/19 04:00 09/11/19 20:00 09/12/19 08:00 09/12/19 07:37 09/12/19 11:49 Intake & Output 09/11/19 09/12/19 09/13/19 06:59 06:59 06:59 Intake Total 3219 2080 117 Output Total 1395 2135 605 Balance 5946 -3429 -565 Weight 73.1 kg 72.8 kg General appearance: PRESENT: no acute distress, cooperative, well-developed Head exam: PRESENT: atraumatic, normocephalic Eye exam: PRESENT: EOMI Ear exam: PRESENT: normal external ear exam Mouth exam: PRESENT: other - Endotracheal tube noted Neck exam: PRESENT: other - Right internal jugular triple-lumen catheter noted. JVD is not apparent. Respiratory exam: PRESENT: crackles, decreased breath sounds, symmetrical, unlabored, other - Ventilator assisted breath sounds Cardiovascular exam: PRESENT: irregular rhythm - Telemetry shows demand pacing, +S1, +S2 GI/Abdominal exam: PRESENT: soft Rectal exam: PRESENT: deferred Neurological exam: PRESENT: other - Arousable Results Laboratory Results: 09/12/19 07:45 09/12/19 07:45 09/12/19 09/12/19 09/12/19 07:45 07:45 07:45 WBC 12.2 H RBC 3.22 L Hgb 9.0 L Hct 26.4 L MCV 82 MCH 27.8 MCHC 33.9 RDW 16.8 H Plt Count 222 Seg Neutrophils % 91.4 H Carbonic Acid 0.95 L HCO3/H2CO3 Ratio 24:1 ABG pH 7.49 H ABG pCO2 31.5 L ABG pO2 97.1 ABG HCO3 23.5 ABG O2 Saturation 97.9 ABG Base Excess 0.5 FiO2 50% Sodium 136.0 L Potassium 4.1 Chloride 104 Carbon Dioxide 26 Anion Gap 6 BUN 22 H Creatinine 0.80 Est GFR ( Amer) > 60 Glucose 150 H Calcium 8.8 09/09/19 09/09/19 09/10/19 17:51 22:40 04:33 Troponin I 2.860 4.710 10.200 NT-Pro-B Natriuret Pep 6880 H 09/10/19 09/10/19 08:14 20:00 Troponin I 10.800 3.800 NT-Pro-B Natriuret Pep EKG Comments: Telemetry shows demand pacing. Impressions: Chest/Abdomen CTA 09/09/19 00:00 IMPRESSION: 1. No pulmonary embolism. No aortic aneurysm or dissection. 2. Moderate bilateral pleural effusions with diffuse groundglass opacification suggestive of pulmonary edema. There is more focal consolidation in the lower lobes which may represent atelectasis or more focal bacterial pneumonia. In addition there are scattered groundglass opacification present in a more nodular appearance bilaterally raising the possibility of viral pneumonia. EXAM DESCRIPTION: CT angiogram of the chest CLINICAL HISTORY: 69 years Female; esophageal upper GI bleed. Epigastric pain. TECHNIQUE: CT angiogram of the abdomen and pelvis using intravenous contrast.. MIP reconstructions were performed. Imaging was performed in the arterial, venous and delayed phase. All CT scans at this facility use dose modulation, iterative reconstruction, and/or weight based dosing when appropriate to reduce radiation dose to as low as reasonably achievable. COMPARISON: None. FINDINGS: ABDOMEN: Aorta: Atherosclerotic vascular plaque is identified in the thoracic aorta. No dissection. No aneurysm. Celiac: Normal SMA: Normal Left renal: Normal Right renal: Large volume of plaque is seen at the origin of the renal artery and there is probable narrowing of the right renal artery. Liver: Homogeneous enhancement of the liver is seen. The hepatic arteries are patent. Portal vein is patent. No mass. Gallbladder is unremarkable. No biliary dilatation. Pancreas:Within normal limits Spleen:Within normal limits Kidneys: Kidneys are normal in size shape and position. No stones or hydronephrosis. No acute process. Symmetric renal enhancement is present bilaterally. There is a 10 mm low density area in the left kidney consistent with a simple cyst. Adrenal glands:Within normal limits GI: NG tube is in the stomach. No obvious contrast extravasation is seen into the stomach. There is hyperdense material in the bowel consistent with ingested material. This makes evaluation of hemorrhage into the bowel very limited. There is moderate stool in the colon. No bowel wall thickening. No focal caliber change or inflammation. appendix: The appendix is not clearly seen. Abdominal wall: Unremarkable Retroperitoneal: Small, nonspecific lymph nodes are present in the retroperitoneum. These do not meet size criteria for pathologic process. General: No free air. No free fluid. PELVIS: Right: Arterial phase imaging of the lower abdomen and pelvis was not performed. There is extensive atherosclerotic plaque in the common iliac artery and there may be a high-grade stenosis. Patency is not assessed. Left : Large volume of plaque is seen in the common iliac artery. Patency is not assessed since the pelvis was not imaged in the arterial phase. Bones: Vacuum discs are seen in the lower lumbar spine. No destructive bone lesions. Bladder: A Muñoz catheter is present in the bladder and the bladder is empty. There are small pockets of air in the bladder from the catheter. The superior aspect of the bladder extends towards the umbilicus consistent with a urachal remnant. Pelvis: No pelvic mass or adenopathy. IMPRESSION: 1. No active contrast extravasation is seen. 2. 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 3. No acute process is seen in the abdomen or pelvis. KUB X-Ray 09/09/19 00:00 IMPRESSION: Nasogastric tube tip is in the stomach. Abdomen Ultrasound 09/09/19 15:43 IMPRESSION: NORMAL RIGHT UPPER QUADRANT ULTRASOUND. Abdomen/Pelvis CTA 09/09/19 18:49 IMPRESSION: 1. No pulmonary embolism. No aortic aneurysm or dissection. 2. Moderate bilateral pleural effusions with diffuse groundglass opacification suggestive of pulmonary edema. There is more focal consolidation in the lower lobes which may represent atelectasis or more focal bacterial pneumonia. In addition there are scattered groundglass opacification present in a more nodular appearance bilaterally raising the possibility of viral pneumonia. EXAM DESCRIPTION: CT angiogram of the chest CLINICAL HISTORY: 69 years Female; esophageal upper GI bleed. Epigastric pain. TECHNIQUE: CT angiogram of the abdomen and pelvis using intravenous contrast.. MIP reconstructions were performed. Imaging was performed in the arterial, venous and delayed phase. All CT scans at this facility use dose modulation, iterative reconstruction, and/or weight based dosing when appropriate to reduce radiation dose to as low as reasonably achievable. COMPARISON: None. FINDINGS: ABDOMEN: Aorta: Atherosclerotic vascular plaque is identified in the thoracic aorta. No dissection. No aneurysm. Celiac: Normal SMA: Normal Left renal: Normal Right renal: Large volume of plaque is seen at the origin of the renal artery and there is probable narrowing of the right renal artery. Liver: Homogeneous enhancement of the liver is seen. The hepatic arteries are patent. Portal vein is patent. No mass. Gallbladder is unremarkable. No biliary dilatation. Pancreas:Within normal limits Spleen:Within normal limits Kidneys: Kidneys are normal in size shape and position. No stones or hydronephrosis. No acute process. Symmetric renal enhancement is present bilaterally. There is a 10 mm low density area in the left kidney consistent with a simple cyst. Adrenal glands:Within normal limits GI: NG tube is in the stomach. No obvious contrast extravasation is seen into the stomach. There is hyperdense material in the bowel consistent with ingested material. This makes evaluation of hemorrhage into the bowel very limited. There is moderate stool in the colon. No bowel wall thickening. No focal caliber change or inflammation. appendix: The appendix is not clearly seen. Abdominal wall: Unremarkable Retroperitoneal: Small, nonspecific lymph nodes are present in the retroperitoneum. These do not meet size criteria for pathologic process. General: No free air. No free fluid. PELVIS: Right: Arterial phase imaging of the lower abdomen and pelvis was not performed. There is extensive atherosclerotic plaque in the common iliac artery and there may be a high-grade stenosis. Patency is not assessed. Left : Large volume of plaque is seen in the common iliac artery. Patency is not assessed since the pelvis was not imaged in the arterial phase. Bones: Vacuum discs are seen in the lower lumbar spine. No destructive bone lesions. Bladder: A Muñoz catheter is present in the bladder and the bladder is empty. There are small pockets of air in the bladder from the catheter. The superior aspect of the bladder extends towards the umbilicus consistent with a urachal remnant. Pelvis: No pelvic mass or adenopathy. IMPRESSION: 1. No active contrast extravasation is seen. 2. 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 3. No acute process is seen in the abdomen or pelvis. Chest X-Ray 09/10/19 17:59 IMPRESSION: Congestive heart failure and interstitial pulmonary edema. Bilateral pleural effusions. SUPPORT DEVICE(S) IN EXPECTED LOCATIONS. Assessment & Plan - Diagnosis (1) Anemia Qualifiers: Anemia type: unspecified type Qualified Code(s): D64.9 - Anemia, unspecified Is this a current diagnosis for this admission?: Yes Plan: Hemoglobin and hematocrit appear to be stabilizing. Likely elevated troponin resulting from demand mediated ischemia in the setting of profound anemia although underlying atherosclerotic coronary artery disease cannot be excluded. Furthermore underlying coronary artery disease is highly likely in this patient with prolonged history of cigarette smoking, hypertension as well as dyslipidemia. Continue to watch for bleeding (2) Acute respiratory failure with hypoxia and hypercapnia Is this a current diagnosis for this admission?: Yes Plan: Plans for extubation today (3) Elevated troponin I level Is this a current diagnosis for this admission?: Yes Plan: Likely type II myocardial infarction secondary to demand in the face of profound anemia and hypoxemia precipitated by GI bleeding. Underlying atherosclerotic coronary disease is highly likely to be present given risk factors. Once patient stabilizes outpatient ischemic evaluation either by stress test or cardiac catheterization is necessary. This can be arranged once the patient improves. Supportive care given recent non-STEMI with statin and beta-blockers. Aspirin if feasible and if no continued bleeding and if agreeable from a GI standpoint
[2019-09-12] MEDS ORDERED: RACEPINEPHRINE HCL 2.25% NEB 0.5 ML AMPUL NEB ONE (13:30)
[2019-09-12] MEDS: DILTIAZEM HCL INJ 25 MG/5 ML VIAL ONE ×2 (18:00→18:24)
[2019-09-12] MEDS: DOCUSATE SODIUM 100 MG CAPSULE PO SCH (18:23)
[2019-09-12] MEDS ORDERED: MELATONIN 5 MG TABLET PO ONE (21:00)
[2019-09-12] MEDS: ATORVASTATIN CALCIUM 10 MG TABLET PO SCH (21:30)
[2019-09-13] MEDS: INSULIN REG, HUMAN 100 UNIT/ML 3 ML VIAL (PYX) SUBCUT SCH ×4 (00:43→17:13)
[2019-09-13] MEDS ORDERED: LABETALOL HCL INJ 20 MG/4 ML DISP.SYRIN IV PRN (01:57)
[2019-09-13] MEDS: CEFEPIME HCL 2 GM in DEXTROSE 5%-WATER 50 ML IV SCH ×2 (05:35→17:13)
[2019-09-13] MEDS: PANTOPRAZOLE SODIUM 20 MG TABLET.DR PO SCH (05:35)
[2019-09-13 08:03] LABS: HEMATOCRIT 30.7 % (36.0-47.0); HEMOGLOBIN 10.2 g/dL (12.0-15.5); MEAN CORPUSCULAR HEMOGLOBIN 27.5 pg (27.0-33.4); MEAN CORPUSCULAR HGB CONC 33.2 g/dL (32.0-36.0); MEAN CORPUSCULAR VOLUME 83 fl (80-97); PLATELET COUNT 271 10^3/uL (150-450); RED CELL DISTRIBUTION WIDTH 16.9 % (11.5-14.0); WHITE BLOOD COUNT 13.5 10^3/uL (4.0-10.5)
[2019-09-13 08:17] LABS: ANION GAP 8 (5-19); BLOOD UREA NITROGEN 23 mg/dL (7-20); CALCIUM 9.4 mg/dL (8.4-10.2); CARBON DIOXIDE 27 mmol/L (22-30); CHLORIDE 103 mmol/L (98-107); GLUCOSE 152 mg/dL (75-110); POTASSIUM 4.3 mmol/L (3.6-5.0)
[2019-09-13 08:21] LABS: VANCOMYCIN,TROUGH 5.6 ug/mL (5.0-20.0)
[2019-09-13 08:30] LABS: ABSOLUTE LYMPHOCYTES# (MANUAL) 0.8 10^3/uL (0.5-4.7); ABSOLUTE MONOCYTES # (MANUAL) 0.3 10^3/uL (0.1-1.4); BASOPHILS % (MANUAL) 0 % (0-2); EOSINOPHILS % (MANUAL) 0 % (0-6); LYMPHOCYTES % (MANUAL) 6 % (13-45); MONOCYTES % (MANUAL) 2 % (3-13); SEGMENTED NEUTROPHILS % (MAN) 92 % (42-78); TOTAL CELLS COUNTED 100
[2019-09-13 08:31] LABS: ANISOCYTOSIS 1+; PLATELET COMMENT ADEQUATE; POLYCHROMASIA 1+
[2019-09-13] MEDS: FUROSEMIDE 40 MG TABLET PO SCH ×2 (09:47→14:02)
[2019-09-13] MEDS: LISINOPRIL 10 MG TABLET PO SCH ×2 (09:47→21:06)
[2019-09-13] MEDS: METHYLPREDNISOLONE INJ 40 MG/1 ML SDV IV SCH ×2 (09:48→21:07)
[2019-09-13] MEDS: GABAPENTIN 300 MG CAPSULE PO SCH (09:48)
[2019-09-13] MEDS: AMLODIPINE BESYLATE 10 MG TABLET PO SCH (09:48)
[2019-09-13] MEDS: AZITHROMYCIN 500 MG in DEXTROSE 5%-WATER 250 ML IV SCH (09:54)
--- NOTE | 2019-09-13 10:40 | PDOC CRITICAL CARE PROG REPORT ---
General Date:: 09/13/19 ICU Day:: 4 Hospital Day:: 4 Resuscitation Status: Full Code Events in the past 12 to 24 Hours:: Extubated, oriented, doing well. Review of systems relevant to events:: Respiratory, CV. Reason for ICU Addmission:: Ready to downgrade. - Medications: Medications reviewed and adjusted accordingly: Yes Vasopressors:: None Sedation:: None Physical Exam Vital Signs: Temp Pulse Resp BP Pulse Ox 98.1 F 105 H 22 H 192/84 H 94 09/11/19 04:00 09/13/19 08:00 09/13/19 08:25 09/13/19 08:25 09/13/19 08:49 Intake & Output 09/12/19 09/13/19 09/14/19 06:59 06:59 06:59 Intake Total 2080 752 400 Output Total 3425 3900 450 Balance -1345 -3148 -50 Weight 72.8 kg 68.6 kg Weight/Height Weight 68.6 kg Height 5 ft 5 in General appearance: PRESENT: no acute distress, well-developed, well-nourished Head exam: PRESENT: atraumatic, normocephalic Eye exam: PRESENT: conjunctiva pink, EOMI, PERRLA. ABSENT: scleral icterus Ear exam: PRESENT: normal external ear exam Mouth exam: PRESENT: moist, tongue midline Neck exam: PRESENT: other - No stridor. Respiratory exam: PRESENT: clear to auscultation debbie, decreased breath sounds. ABSENT: rales, rhonchi, wheezes Cardiovascular exam: PRESENT: RRR. ABSENT: diastolic murmur, rubs, systolic murmur GI/Abdominal exam: PRESENT: normal bowel sounds, soft. ABSENT: distended, guarding, mass, organolmegaly, rebound, tenderness Rectal exam: PRESENT: deferred Extremities exam: PRESENT: full ROM. ABSENT: calf tenderness, clubbing, pedal edema Neurological exam: PRESENT: alert, awake, oriented to person, oriented to place, oriented to time, oriented to situation, CN II-XII grossly intact. ABSENT: motor sensory deficit Psychiatric exam: PRESENT: appropriate affect, normal mood. ABSENT: homicidal ideation, suicidal ideation Skin exam: PRESENT: dry, intact, warm. ABSENT: cyanosis, rash Laboratory/Radiographs Laboratory Results: 09/13/19 06:55 09/13/19 06:55 09/13/19 09/13/19 06:55 06:55 WBC 13.5 H RBC 3.70 L Hgb 10.2 L Hct 30.7 L MCV 83 MCH 27.5 MCHC 33.2 RDW 16.9 H Plt Count 271 Seg Neutrophils % Not Reportable Sodium 138.3 Potassium 4.3 Chloride 103 Carbon Dioxide 27 Anion Gap 8 BUN 23 H Creatinine 0.83 Est GFR ( Amer) > 60 Glucose 152 H Calcium 9.4 Magnesium 2.2 09/10/19 02:20 Tracheal Aspirate Gram Stain - Final 09/10/19 02:20 Tracheal Aspirate Sputum Culture - Final NORMAL BRIGID 09/09/19 09/09/19 09/10/19 17:51 22:40 04:33 Troponin I 2.860 4.710 10.200 NT-Pro-B Natriuret Pep 6880 H 09/10/19 09/10/19 08:14 20:00 Troponin I 10.800 3.800 NT-Pro-B Natriuret Pep Impressions: Chest/Abdomen CTA 09/09/19 00:00 IMPRESSION: 1. No pulmonary embolism. No aortic aneurysm or dissection. 2. Moderate bilateral pleural effusions with diffuse groundglass opacification suggestive of pulmonary edema. There is more focal consolidation in the lower lobes which may represent atelectasis or more focal bacterial pneumonia. In addition there are scattered groundglass opacification present in a more nodular appearance bilaterally raising the possibility of viral pneumonia. EXAM DESCRIPTION: CT angiogram of the chest CLINICAL HISTORY: 69 years Female; esophageal upper GI bleed. Epigastric pain. TECHNIQUE: CT angiogram of the abdomen and pelvis using intravenous contrast.. MIP reconstructions were performed. Imaging was performed in the arterial, venous and delayed phase. All CT scans at this facility use dose modulation, iterative reconstruction, and/or weight based dosing when appropriate to reduce radiation dose to as low as reasonably achievable. COMPARISON: None. FINDINGS: ABDOMEN: Aorta: Atherosclerotic vascular plaque is identified in the thoracic aorta. No dissection. No aneurysm. Celiac: Normal SMA: Normal Left renal: Normal Right renal: Large volume of plaque is seen at the origin of the renal artery and there is probable narrowing of the right renal artery. Liver: Homogeneous enhancement of the liver is seen. The hepatic arteries are patent. Portal vein is patent. No mass. Gallbladder is unremarkable. No biliary dilatation. Pancreas:Within normal limits Spleen:Within normal limits Kidneys: Kidneys are normal in size shape and position. No stones or hydronephrosis. No acute process. Symmetric renal enhancement is present bilaterally. There is a 10 mm low density area in the left kidney consistent with a simple cyst. Adrenal glands:Within normal limits GI: NG tube is in the stomach. No obvious contrast extravasation is seen into the stomach. There is hyperdense material in the bowel consistent with ingested material. This makes evaluation of hemorrhage into the bowel very limited. There is moderate stool in the colon. No bowel wall thickening. No focal caliber change or inflammation. appendix: The appendix is not clearly seen. Abdominal wall: Unremarkable Retroperitoneal: Small, nonspecific lymph nodes are present in the retroperitoneum. These do not meet size criteria for pathologic process. General: No free air. No free fluid. PELVIS: Right: Arterial phase imaging of the lower abdomen and pelvis was not performed. There is extensive atherosclerotic plaque in the common iliac artery and there may be a high-grade stenosis. Patency is not assessed. Left : Large volume of plaque is seen in the common iliac artery. Patency is not assessed since the pelvis was not imaged in the arterial phase. Bones: Vacuum discs are seen in the lower lumbar spine. No destructive bone lesions. Bladder: A Muñoz catheter is present in the bladder and the bladder is empty. There are small pockets of air in the bladder from the catheter. The superior aspect of the bladder extends towards the umbilicus consistent with a urachal remnant. Pelvis: No pelvic mass or adenopathy. IMPRESSION: 1. No active contrast extravasation is seen. 2. 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 3. No acute process is seen in the abdomen or pelvis. KUB X-Ray 09/09/19 00:00 IMPRESSION: Nasogastric tube tip is in the stomach. Abdomen Ultrasound 09/09/19 15:43 IMPRESSION: NORMAL RIGHT UPPER QUADRANT ULTRASOUND. Abdomen/Pelvis CTA 09/09/19 18:49 IMPRESSION: 1. No pulmonary embolism. No aortic aneurysm or dissection. 2. Moderate bilateral pleural effusions with diffuse groundglass opacification suggestive of pulmonary edema. There is more focal consolidation in the lower lobes which may represent atelectasis or more focal bacterial pneumonia. In addition there are scattered groundglass opacification present in a more nodular appearance bilaterally raising the possibility of viral pneumonia. EXAM DESCRIPTION: CT angiogram of the chest CLINICAL HISTORY: 69 years Female; esophageal upper GI bleed. Epigastric pain. TECHNIQUE: CT angiogram of the abdomen and pelvis using intravenous contrast.. MIP reconstructions were performed. Imaging was performed in the arterial, venous and delayed phase. All CT scans at this facility use dose modulation, iterative reconstruction, and/or weight based dosing when appropriate to reduce radiation dose to as low as reasonably achievable. COMPARISON: None. FINDINGS: ABDOMEN: Aorta: Atherosclerotic vascular plaque is identified in the thoracic aorta. No dissection. No aneurysm. Celiac: Normal SMA: Normal Left renal: Normal Right renal: Large volume of plaque is seen at the origin of the renal artery and there is probable narrowing of the right renal artery. Liver: Homogeneous enhancement of the liver is seen. The hepatic arteries are patent. Portal vein is patent. No mass. Gallbladder is unremarkable. No biliary dilatation. Pancreas:Within normal limits Spleen:Within normal limits Kidneys: Kidneys are normal in size shape and position. No stones or hydronephrosis. No acute process. Symmetric renal enhancement is present bilaterally. There is a 10 mm low density area in the left kidney consistent with a simple cyst. Adrenal glands:Within normal limits GI: NG tube is in the stomach. No obvious contrast extravasation is seen into the stomach. There is hyperdense material in the bowel consistent with ingested material. This makes evaluation of hemorrhage into the bowel very limited. There is moderate stool in the colon. No bowel wall thickening. No focal caliber change or inflammation. appendix: The appendix is not clearly seen. Abdominal wall: Unremarkable Retroperitoneal: Small, nonspecific lymph nodes are present in the retroperitoneum. These do not meet size criteria for pathologic process. General: No free air. No free fluid. PELVIS: Right: Arterial phase imaging of the lower abdomen and pelvis was not performed. There is extensive atherosclerotic plaque in the common iliac artery and there may be a high-grade stenosis. Patency is not assessed. Left : Large volume of plaque is seen in the common iliac artery. Patency is not assessed since the pelvis was not imaged in the arterial phase. Bones: Vacuum discs are seen in the lower lumbar spine. No destructive bone lesions. Bladder: A Muñoz catheter is present in the bladder and the bladder is empty. There are small pockets of air in the bladder from the catheter. The superior aspect of the bladder extends towards the umbilicus consistent with a urachal remnant. Pelvis: No pelvic mass or adenopathy. IMPRESSION: 1. No active contrast extravasation is seen. 2. 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 3. No acute process is seen in the abdomen or pelvis. Chest X-Ray 09/10/19 17:59 IMPRESSION: Congestive heart failure and interstitial pulmonary edema. Bilateral pleural effusions. SUPPORT DEVICE(S) IN EXPECTED LOCATIONS. All labs, radiographs, diagnostic studies and EKGs were personally reviewed: Yes In addition, reports of radiographic and diagnostic studies were read: Yes Assessment and Plan - Diagnosis (1) Anemia Qualifiers: Anemia type: unspecified type Qualified Code(s): D64.9 - Anemia, unspecified Is this a current diagnosis for this admission?: Yes Plan: Resolved (2) Diabetes mellitus with hyperglycemia Qualifiers: Diabetes mellitus type: type 2 Diabetes mellitus care home insulin use: unspecified care home insulin use status Qualified Code(s): E11.65 - Type 2 diabetes mellitus with hyperglycemia Is this a current diagnosis for this admission?: Yes Plan: Controlled (3) Elevated troponin I level Is this a current diagnosis for this admission?: Yes Plan: Resolved. Needs out patient stress or catheterization. (4) Suspected COVID-19 virus infection Is this a current diagnosis for this admission?: Yes Plan: She has tested negative. Plan Summary: Transfer to telemetry in view of troponin. She will need to see D Consult jess Alonso before leaving. Critical Time Critical Time (minutes): 35 Level of Care: TELE Anticipated discharge: Home Within: Other -: 1. The care of a critical patient is a dynamic process. This note is a represe ntative synopsis but static in nature. The timeframe for treatments given in order is not necessarily the actual time these treatments may have been done. 2. This patient requires critical care secondary to ongoing requirements for therapy not offered or safe outside the critical care environment. Transfer to a lower level of care will result in altered life or limb morbidity and mortality. 3. Multidisciplinary rounds completed. 4. ABCDE bundle addressed.
[2019-09-13] MEDS: METOPROLOL SUCCINATE 25 MG TAB.SR.24H PO SCH ×2 (11:22→21:04)
[2019-09-13] MEDS: ENOXAPARIN SODIUM INJ 40 MG/0.4 ML DISP.SYRIN SUBCUT SCH (11:23)
[2019-09-13] MEDS: VANCOMYCIN HCL 1,000 MG in DEXTROSE 5%-WATER 250 ML IV SCH ×2 (14:02→22:40)
[2019-09-13 14:43] LABS: VANCOMYCIN,TROUGH < 5.0 ug/mL (5.0-20.0)
[2019-09-13] MEDS: DOCUSATE SODIUM 100 MG CAPSULE PO SCH (17:13)
[2019-09-13] MEDS: ATORVASTATIN CALCIUM 10 MG TABLET PO SCH (21:04)
[2019-09-14] MEDS: INSULIN REG, HUMAN 100 UNIT/ML 3 ML VIAL (PYX) SUBCUT SCH ×5 (00:08→21:37)
[2019-09-14] MEDS: PANTOPRAZOLE SODIUM 20 MG TABLET.DR PO SCH (06:28)
[2019-09-14] MEDS: CEFEPIME HCL 2 GM in DEXTROSE 5%-WATER 50 ML IV SCH ×2 (06:28→18:33)
[2019-09-14] MEDS: FUROSEMIDE 40 MG TABLET PO SCH ×2 (08:35→16:49)
[2019-09-14] MEDS: LISINOPRIL 10 MG TABLET PO SCH ×3 (10:25→21:49)
[2019-09-14] MEDS: AMLODIPINE BESYLATE 10 MG TABLET PO SCH (10:25)
[2019-09-14] MEDS: METHYLPREDNISOLONE INJ 40 MG/1 ML SDV IV SCH ×2 (10:26→21:30)
[2019-09-14] MEDS: METOPROLOL SUCCINATE 25 MG TAB.SR.24H PO SCH ×2 (10:29→21:30)
[2019-09-14] MEDS: ENOXAPARIN SODIUM INJ 40 MG/0.4 ML DISP.SYRIN SUBCUT SCH (10:39)
[2019-09-14] MEDS: AZITHROMYCIN 500 MG in DEXTROSE 5%-WATER 250 ML IV SCH (11:01)
--- NOTE | 2019-09-14 11:40 | PDOC PROGRESS REPORT ---
Subjective Progress Note for:: 09/14/19 Reason For Visit: UGI BLEED,ANEMIA,HYPOXIA 09/14/2019 Patient was admitted 5 days ago for abdominal pain, upper GI bleed, anemia, hypoxia, elevated troponin level Physical Exam Vital Signs: Temp Pulse Resp BP Pulse Ox 98.3 F 84 16 148/60 H 95 09/14/19 07:28 09/14/19 07:28 09/14/19 07:28 09/14/19 07:28 09/14/19 07:28 Intake & Output 09/13/19 09/14/19 09/15/19 06:59 06:59 06:59 Intake Total 752 2790 Output Total 3900 1400 Balance -3148 1390 Weight 68.6 kg 66 kg General appearance: PRESENT: no acute distress Respiratory exam: PRESENT: decreased breath sounds, other - No wheezes Cardiovascular exam: PRESENT: RRR. ABSENT: diastolic murmur, rubs, systolic murmur Neurological exam: PRESENT: alert, awake, oriented to person, oriented to place, oriented to time, oriented to situation, CN II-XII grossly intact. ABSENT: motor sensory deficit Psychiatric exam: PRESENT: appropriate affect, normal mood, other - Pleasant to talk to. ABSENT: homicidal ideation, suicidal ideation Results Laboratory Results: 09/13/19 06:55 09/13/19 06:55 09/09/19 09/09/19 09/10/19 17:51 22:40 04:33 Troponin I 2.860 4.710 10.200 NT-Pro-B Natriuret Pep 6880 H 09/10/19 09/10/19 08:14 20:00 Troponin I 10.800 3.800 NT-Pro-B Natriuret Pep Impressions: Chest/Abdomen CTA 09/09/19 00:00 IMPRESSION: 1. No pulmonary embolism. No aortic aneurysm or dissection. 2. Moderate bilateral pleural effusions with diffuse groundglass opacification suggestive of pulmonary edema. There is more focal consolidation in the lower lobes which may represent atelectasis or more focal bacterial pneumonia. In addition there are scattered groundglass opacification present in a more nodular appearance bilaterally raising the possibility of viral pneumonia. EXAM DESCRIPTION: CT angiogram of the chest CLINICAL HISTORY: 69 years Female; esophageal upper GI bleed. Epigastric pain. TECHNIQUE: CT angiogram of the abdomen and pelvis using intravenous contrast.. MIP reconstructions were performed. Imaging was performed in the arterial, venous and delayed phase. All CT scans at this facility use dose modulation, iterative reconstruction, and/or weight based dosing when appropriate to reduce radiation dose to as low as reasonably achievable. COMPARISON: None. FINDINGS: ABDOMEN: Aorta: Atherosclerotic vascular plaque is identified in the thoracic aorta. No dissection. No aneurysm. Celiac: Normal SMA: Normal Left renal: Normal Right renal: Large volume of plaque is seen at the origin of the renal artery and there is probable narrowing of the right renal artery. Liver: Homogeneous enhancement of the liver is seen. The hepatic arteries are patent. Portal vein is patent. No mass. Gallbladder is unremarkable. No biliary dilatation. Pancreas:Within normal limits Spleen:Within normal limits Kidneys: Kidneys are normal in size shape and position. No stones or hydronephrosis. No acute process. Symmetric renal enhancement is present bilaterally. There is a 10 mm low density area in the left kidney consistent with a simple cyst. Adrenal glands:Within normal limits GI: NG tube is in the stomach. No obvious contrast extravasation is seen into the stomach. There is hyperdense material in the bowel consistent with ingested material. This makes evaluation of hemorrhage into the bowel very limited. There is moderate stool in the colon. No bowel wall thickening. No focal caliber change or inflammation. appendix: The appendix is not clearly seen. Abdominal wall: Unremarkable Retroperitoneal: Small, nonspecific lymph nodes are present in the retroperitoneum. These do not meet size criteria for pathologic process. General: No free air. No free fluid. PELVIS: Right: Arterial phase imaging of the lower abdomen and pelvis was not performed. There is extensive atherosclerotic plaque in the common iliac artery and there may be a high-grade stenosis. Patency is not assessed. Left : Large volume of plaque is seen in the common iliac artery. Patency is not assessed since the pelvis was not imaged in the arterial phase. Bones: Vacuum discs are seen in the lower lumbar spine. No destructive bone lesions. Bladder: A Muñoz catheter is present in the bladder and the bladder is empty. There are small pockets of air in the bladder from the catheter. The superior aspect of the bladder extends towards the umbilicus consistent with a urachal remnant. Pelvis: No pelvic mass or adenopathy. IMPRESSION: 1. No active contrast extravasation is seen. 2. 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 3. No acute process is seen in the abdomen or pelvis. KUB X-Ray 09/09/19 00:00 IMPRESSION: Nasogastric tube tip is in the stomach. Abdomen Ultrasound 09/09/19 15:43 IMPRESSION: NORMAL RIGHT UPPER QUADRANT ULTRASOUND. Abdomen/Pelvis CTA 09/09/19 18:49 IMPRESSION: 1. No pulmonary embolism. No aortic aneurysm or dissection. 2. Moderate bilateral pleural effusions with diffuse groundglass opacification suggestive of pulmonary edema. There is more focal consolidation in the lower lobes which may represent atelectasis or more focal bacterial pneumonia. In addition there are scattered groundglass opacification present in a more nodular appearance bilaterally raising the possibility of viral pneumonia. EXAM DESCRIPTION: CT angiogram of the chest CLINICAL HISTORY: 69 years Female; esophageal upper GI bleed. Epigastric pain. TECHNIQUE: CT angiogram of the abdomen and pelvis using intravenous contrast.. MIP reconstructions were performed. Imaging was performed in the arterial, venous and delayed phase. All CT scans at this facility use dose modulation, iterative reconstruction, and/or weight based dosing when appropriate to reduce radiation dose to as low as reasonably achievable. COMPARISON: None. FINDINGS: ABDOMEN: Aorta: Atherosclerotic vascular plaque is identified in the thoracic aorta. No dissection. No aneurysm. Celiac: Normal SMA: Normal Left renal: Normal Right renal: Large volume of plaque is seen at the origin of the renal artery and there is probable narrowing of the right renal artery. Liver: Homogeneous enhancement of the liver is seen. The hepatic arteries are patent. Portal vein is patent. No mass. Gallbladder is unremarkable. No biliary dilatation. Pancreas:Within normal limits Spleen:Within normal limits Kidneys: Kidneys are normal in size shape and position. No stones or hydronephrosis. No acute process. Symmetric renal enhancement is present bilaterally. There is a 10 mm low density area in the left kidney consistent with a simple cyst. Adrenal glands:Within normal limits GI: NG tube is in the stomach. No obvious contrast extravasation is seen into the stomach. There is hyperdense material in the bowel consistent with ingested material. This makes evaluation of hemorrhage into the bowel very limited. There is moderate stool in the colon. No bowel wall thickening. No focal caliber change or inflammation. appendix: The appendix is not clearly seen. Abdominal wall: Unremarkable Retroperitoneal: Small, nonspecific lymph nodes are present in the retroperitoneum. These do not meet size criteria for pathologic process. General: No free air. No free fluid. PELVIS: Right: Arterial phase imaging of the lower abdomen and pelvis was not performed. There is extensive atherosclerotic plaque in the common iliac artery and there may be a high-grade stenosis. Patency is not assessed. Left : Large volume of plaque is seen in the common iliac artery. Patency is not assessed since the pelvis was not imaged in the arterial phase. Bones: Vacuum discs are seen in the lower lumbar spine. No destructive bone lesions. Bladder: A Muñoz catheter is present in the bladder and the bladder is empty. There are small pockets of air in the bladder from the catheter. The superior aspect of the bladder extends towards the umbilicus consistent with a urachal remnant. Pelvis: No pelvic mass or adenopathy. IMPRESSION: 1. No active contrast extravasation is seen. 2. 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 3. No acute process is seen in the abdomen or pelvis. Chest X-Ray 09/10/19 17:59 IMPRESSION: Congestive heart failure and interstitial pulmonary edema. Bilateral pleural effusions. SUPPORT DEVICE(S) IN EXPECTED LOCATIONS. Assessment and Plan - Diagnosis (1) Acute respiratory failure with hypoxia and hypercapnia Is this a current diagnosis for this admission?: Yes (2) Anemia Qualifiers: Anemia type: unspecified type Qualified Code(s): D64.9 - Anemia, unspecified Is this a current diagnosis for this admission?: Yes (3) Elevated troponin I level Is this a current diagnosis for this admission?: Yes (4) Epigastric abdominal pain Is this a current diagnosis for this admission?: Yes (5) GI bleed Qualifiers: GI bleed type/associated pathology: unspecified gastrointestinal hemorrhage type Qualified Code(s): K92.2 - Gastrointestinal hemorrhage, unspecified Is this a current diagnosis for this admission?: Yes (6) Suspected COVID-19 virus infection Is this a current diagnosis for this admission?: Yes (7) Tobacco abuse Is this a current diagnosis for this admission?: Yes - Plan Summary Summary: 09/14/2019 Patient appears to be medically stable today. Hemo-dynamically stable. Temperature 98.3 pulse 84 and regular blood pressure 148/60 O2 sat 95% on room air CBC is stable hemoglobin is up actually slightly at 10.2 Chemistry shows stable renal functions BUN of 23 creatinine 0.83 glucose levels anywhere from 136 up to 248 COVID testing negative Urine culture 5 days ago was positive for E. coli blood cultures have been negative Sputum shows normal rolf Cardiology has signed off Pulmonology is scheduled to see the patient today for possible new diagnosis of COPD. Patient does have a positive tobacco history Patient is asking to be discharged home [facility], and would like to follow-up as outpatient. I sat down and spoke with the patient in her room for about 15 minutes and she was in no respiratory distress Patient currently on IV cefepime, IV Zithromax, IV vancomycin , IV Solu-Medrol 40 mg every 12 hours, as well as other p.o. meds - Time Time Spent with patient: 25-34 minutes
--- NOTE | 2019-09-14 12:15 | PDOC PROGRESS REPORT ---
Subjective Progress Note for:: 09/14/19 Subjective:: Patient seen and examined. Patient is doing well from a respiratory standpoint. Had mild nausea this morning. Claims that she may be withdrawing from nicotine. No chest pain is reported. Reason For Visit: UGI BLEED,ANEMIA,HYPOXIA Physical Exam Vital Signs: Temp Pulse Resp BP Pulse Ox 98.3 F 84 16 148/60 H 95 09/14/19 07:28 09/14/19 07:28 09/14/19 07:28 09/14/19 07:28 09/14/19 07:28 Intake & Output 09/13/19 09/14/19 09/15/19 06:59 06:59 06:59 Intake Total 752 2790 Output Total 3900 1400 Balance -3148 1390 Weight 68.6 kg 66 kg General appearance: PRESENT: no acute distress, cooperative, well-developed, well-nourished Head exam: PRESENT: atraumatic, normocephalic Eye exam: PRESENT: conjunctiva pale, EOMI Respiratory exam: PRESENT: prolonged expiratory phas, symmetrical, unlabored Cardiovascular exam: PRESENT: RRR, +S1, +S2, other - Left upper chest wall pacemaker implant Pulses: PRESENT: normal radial pulses Neurological exam: PRESENT: alert, awake, oriented to person, oriented to place, oriented to time, oriented to situation Results Laboratory Results: 09/13/19 06:55 09/13/19 06:55 09/09/19 09/09/19 09/10/19 17:51 22:40 04:33 Troponin I 2.860 4.710 10.200 NT-Pro-B Natriuret Pep 6880 H 09/10/19 09/10/19 08:14 20:00 Troponin I 10.800 3.800 NT-Pro-B Natriuret Pep Impressions: Chest/Abdomen CTA 09/09/19 00:00 IMPRESSION: 1. No pulmonary embolism. No aortic aneurysm or dissection. 2. Moderate bilateral pleural effusions with diffuse groundglass opacification suggestive of pulmonary edema. There is more focal consolidation in the lower lobes which may represent atelectasis or more focal bacterial pneumonia. In addition there are scattered groundglass opacification present in a more nodular appearance bilaterally raising the possibility of viral pneumonia. EXAM DESCRIPTION: CT angiogram of the chest CLINICAL HISTORY: 69 years Female; esophageal upper GI bleed. Epigastric pain. TECHNIQUE: CT angiogram of the abdomen and pelvis using intravenous contrast.. MIP reconstructions were performed. Imaging was performed in the arterial, venous and delayed phase. All CT scans at this facility use dose modulation, iterative reconstruction, and/or weight based dosing when appropriate to reduce radiation dose to as low as reasonably achievable. COMPARISON: None. FINDINGS: ABDOMEN: Aorta: Atherosclerotic vascular plaque is identified in the thoracic aorta. No dissection. No aneurysm. Celiac: Normal SMA: Normal Left renal: Normal Right renal: Large volume of plaque is seen at the origin of the renal artery and there is probable narrowing of the right renal artery. Liver: Homogeneous enhancement of the liver is seen. The hepatic arteries are patent. Portal vein is patent. No mass. Gallbladder is unremarkable. No biliary dilatation. Pancreas:Within normal limits Spleen:Within normal limits Kidneys: Kidneys are normal in size shape and position. No stones or hydronephrosis. No acute process. Symmetric renal enhancement is present bilaterally. There is a 10 mm low density area in the left kidney consistent with a simple cyst. Adrenal glands:Within normal limits GI: NG tube is in the stomach. No obvious contrast extravasation is seen into the stomach. There is hyperdense material in the bowel consistent with ingested material. This makes evaluation of hemorrhage into the bowel very limited. There is moderate stool in the colon. No bowel wall thickening. No focal caliber change or inflammation. appendix: The appendix is not clearly seen. Abdominal wall: Unremarkable Retroperitoneal: Small, nonspecific lymph nodes are present in the retroperitoneum. These do not meet size criteria for pathologic process. General: No free air. No free fluid. PELVIS: Right: Arterial phase imaging of the lower abdomen and pelvis was not performed. There is extensive atherosclerotic plaque in the common iliac artery and there may be a high-grade stenosis. Patency is not assessed. Left : Large volume of plaque is seen in the common iliac artery. Patency is not assessed since the pelvis was not imaged in the arterial phase. Bones: Vacuum discs are seen in the lower lumbar spine. No destructive bone lesions. Bladder: A Muñoz catheter is present in the bladder and the bladder is empty. There are small pockets of air in the bladder from the catheter. The superior aspect of the bladder extends towards the umbilicus consistent with a urachal remnant. Pelvis: No pelvic mass or adenopathy. IMPRESSION: 1. No active contrast extravasation is seen. 2. 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 3. No acute process is seen in the abdomen or pelvis. KUB X-Ray 09/09/19 00:00 IMPRESSION: Nasogastric tube tip is in the stomach. Abdomen Ultrasound 09/09/19 15:43 IMPRESSION: NORMAL RIGHT UPPER QUADRANT ULTRASOUND. Abdomen/Pelvis CTA 09/09/19 18:49 IMPRESSION: 1. No pulmonary embolism. No aortic aneurysm or dissection. 2. Moderate bilateral pleural effusions with diffuse groundglass opacification suggestive of pulmonary edema. There is more focal consolidation in the lower lobes which may represent atelectasis or more focal bacterial pneumonia. In addition there are scattered groundglass opacification present in a more nodular appearance bilaterally raising the possibility of viral pneumonia. EXAM DESCRIPTION: CT angiogram of the chest CLINICAL HISTORY: 69 years Female; esophageal upper GI bleed. Epigastric pain. TECHNIQUE: CT angiogram of the abdomen and pelvis using intravenous contrast.. MIP reconstructions were performed. Imaging was performed in the arterial, venous and delayed phase. All CT scans at this facility use dose modulation, iterative reconstruction, and/or weight based dosing when appropriate to reduce radiation dose to as low as reasonably achievable. COMPARISON: None. FINDINGS: ABDOMEN: Aorta: Atherosclerotic vascular plaque is identified in the thoracic aorta. No dissection. No aneurysm. Celiac: Normal SMA: Normal Left renal: Normal Right renal: Large volume of plaque is seen at the origin of the renal artery and there is probable narrowing of the right renal artery. Liver: Homogeneous enhancement of the liver is seen. The hepatic arteries are patent. Portal vein is patent. No mass. Gallbladder is unremarkable. No biliary dilatation. Pancreas:Within normal limits Spleen:Within normal limits Kidneys: Kidneys are normal in size shape and position. No stones or hydronephrosis. No acute process. Symmetric renal enhancement is present bilaterally. There is a 10 mm low density area in the left kidney consistent with a simple cyst. Adrenal glands:Within normal limits GI: NG tube is in the stomach. No obvious contrast extravasation is seen into the stomach. There is hyperdense material in the bowel consistent with ingested material. This makes evaluation of hemorrhage into the bowel very limited. There is moderate stool in the colon. No bowel wall thickening. No focal caliber change or inflammation. appendix: The appendix is not clearly seen. Abdominal wall: Unremarkable Retroperitoneal: Small, nonspecific lymph nodes are present in the retroperitoneum. These do not meet size criteria for pathologic process. General: No free air. No free fluid. PELVIS: Right: Arterial phase imaging of the lower abdomen and pelvis was not performed. There is extensive atherosclerotic plaque in the common iliac artery and there may be a high-grade stenosis. Patency is not assessed. Left : Large volume of plaque is seen in the common iliac artery. Patency is not assessed since the pelvis was not imaged in the arterial phase. Bones: Vacuum discs are seen in the lower lumbar spine. No destructive bone lesions. Bladder: A Muñoz catheter is present in the bladder and the bladder is empty. There are small pockets of air in the bladder from the catheter. The superior aspect of the bladder extends towards the umbilicus consistent with a urachal remnant. Pelvis: No pelvic mass or adenopathy. IMPRESSION: 1. No active contrast extravasation is seen. 2. 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 3. No acute process is seen in the abdomen or pelvis. Chest X-Ray 09/10/19 17:59 IMPRESSION: Congestive heart failure and interstitial pulmonary edema. Bilateral pleural effusions. SUPPORT DEVICE(S) IN EXPECTED LOCATIONS. Assessment & Plan - Diagnosis (1) Anemia Qualifiers: Anemia type: unspecified type Qualified Code(s): D64.9 - Anemia, unspecified Is this a current diagnosis for this admission?: Yes Plan: Hemoglobin and hematocrit are stable. Likely elevated troponin resulting from demand mediated ischemia in the setting of profound anemia although underlying atherosclerotic coronary artery disease cannot be excluded. Furthermore underlying coronary artery disease is highly likely in this patient with prolonged history of cigarette smoking, hypertension as well as dyslipidemia. Continue to watch for bleeding (2) Acute respiratory failure with hypoxia and hypercapnia Is this a current diagnosis for this admission?: Yes Plan: Extubated. Doing well. Continue to watch respiratory status. (3) Elevated troponin I level Is this a current diagnosis for this admission?: Yes Plan: Likely type II myocardial infarction secondary to demand in the face of profound anemia and hypoxemia precipitated by GI bleeding. Underlying atherosclerotic coronary disease is highly likely to be present given risk factors. Once patient stabilizes outpatient ischemic evaluation either by stress test or cardiac catheterization is necessary. This can be arranged once the patient improves. Supportive care given recent non-STEMI with statin and beta-blockers. Aspirin if feasible and if no continued bleeding and if agreeable from a GI standpoint - Notes Notes: Clinically patient appears to be progressing well Would recommend outpatient evaluation for myocardial ischemia given non-STEMI and multiple risk factors for coronary artery disease although the event was precipitated likely in a situation of demand/requirement mismatch provoked by anemia and hypoxemia. Medical therapy for coronary disease disease with limitations given GI bleeding
[2019-09-14] MEDS: VANCOMYCIN HCL 1,000 MG in DEXTROSE 5%-WATER 250 ML IV SCH (12:35)
[2019-09-14] MEDS ORDERED: ONDANSETRON HCL INJ/PF 4 MG/2 ML SDV IV PRN (14:00)
[2019-09-14] MEDS ORDERED: ZOLPIDEM TARTRATE 5 MG TABLET PO PRN (14:29)
--- NOTE | 2019-09-14 15:30 | RADIOLOGY REPORT (SQ) ---
EXAM DESCRIPTION: CHEST 2 VIEWS IMAGES COMPLETED DATE/TIME: 09/14/2019 3:15 pm REASON FOR STUDY: follow post extubation COMPARISON: 09/10/2019 EXAM PARAMETERS: NUMBER OF VIEWS: two views TECHNIQUE: Digital Frontal and Lateral radiographic views of the chest acquired. RADIATION DOSE: NA LIMITATIONS: none FINDINGS: LUNGS AND PLEURA: Extubation with improved aeration bilaterally. Trace bilateral effusion s. No pneumothorax. MEDIASTINUM AND HILAR STRUCTURES: No masses or contour abnormalities. HEART AND VASCULAR STRUCTURES: Heart normal size. No evidence for failure. BONES: No acute findings. HARDWARE: Left-sided cardiac pacer with leads overlying right atrium and right ventricle, stable. Ex tubation. Removal of the central venous catheter and enteric tube. OTHER: No other significant finding. IMPRESSION: Extubation with improved bilateral aeration. Trace bilateral effusions. TECHNICAL DOCUMENTATION: JOB ID: [id number] 2010 [facility]- All Rights Reserved Reading location - IP/workstation name: [email or web address]
[2019-09-14] MEDS ORDERED: LEVALBUTEROL HCL NEB 1.25 MG/3 ML AMPUL NEB PRN (15:31)
[2019-09-14] MEDS ORDERED: NICOTINE 21 MG/24 HR PATCH.TD24 ONE (16:47)
[2019-09-14] MEDS: FLUTICASONE/VILANTEROL 100-25 MCG/DOSE IH SCH (17:37)
[2019-09-14] MEDS: DOCUSATE SODIUM 100 MG CAPSULE PO SCH (17:50)
[2019-09-14] MEDS ORDERED: NICOTINE 21 MG/24 HR PATCH.TD24 TD SCH (18:00)
[2019-09-14] MEDS: ATORVASTATIN CALCIUM 10 MG TABLET PO SCH (21:30)
[2019-09-14] MEDS ORDERED: MELATONIN 5 MG TABLET PO SCH (22:00)
[2019-09-15] MEDS: VANCOMYCIN HCL 1,000 MG in DEXTROSE 5%-WATER 250 ML IV SCH (00:05)
[2019-09-15] MEDS: CEFEPIME HCL 2 GM in DEXTROSE 5%-WATER 50 ML IV SCH (06:59)
[2019-09-15] MEDS: PANTOPRAZOLE SODIUM 20 MG TABLET.DR PO SCH (07:00)
[2019-09-15] MEDS: INSULIN REG, HUMAN 100 UNIT/ML 3 ML VIAL (PYX) SUBCUT SCH ×2 (08:14→11:50)
[2019-09-15] MEDS: FUROSEMIDE 40 MG TABLET PO SCH (08:17)
--- NOTE | 2019-09-15 10:02 | PDOC CONSULTATION ---
Consultation Consult Date: 09/14/19 Attending physician:: ANT THOMAS Provider Consulted: CHASTITY POND Consult reason:: acute/chronic resp failure History of Present Illness Admission Date/PCP: 09/09/19 18:04 EVA SIM PA-C History of Present Illness: GIN OLIVEROS is a 69 year old female who presented to the emergency room complaining of abdominal pain subsequent work-up found that she was hypercapnic and hypoxic as well as anemic and was intubated and sent to the ICU she was screened for a COVID which was -7 history of chronic lung disease as a child or adolescent she denies hemoptysis or PPD was negative dates unknown she admits to exposure large amounts of passive smoke as a child as well as an adult she has self smoked about 2 packs/day for 50 years and smoked up until the time of admission no significant occupational exposure to potential respiratory toxins she has 2 dogs no recent travel no angina-like chest pain sleeps on 1-2 pillows no PND rare nocturnal cough no edema unaware of any snoring denies restless sleep admits to nocturia x2 and denies unrestful sleep or excessive daytime somnolence. She does no has or has been prescribed 2 L of O2 at home per nasal cannula but she admits that she wears it "when she needs it". Past Medical History Cardiac Medical History: Reports: Hypertension Pulmonary Medical History: Reports: Chronic Obstructive Pulmonary Disease (MILL [employer]ESS[employer] D), Intubation Endocrine Medical History: Reports: Diabetes Mellitus Type 2 Malignancy Medical History: Reports: None GI Medical History: Denies: Cirrhosis, Crohn's Disease, Ulcerative Colitis Musculoskeltal Medical History: Denies: Gout Skin Medical History: Denies: Psoriasis Psychiatric Medical History: Reports: Tobacco Dependency Traumatic Medical History: Denies: Traumatic Brain Injury Hematology: Denies: Sickle Cell Disease Infectious Medical History: Denies: HIV Past Surgical History Past Surgical History: Reports: Hysterectomy, Orthopedic Surgery, Pacemaker - for symptomatic bradycardia Social History Information Source: Patient, [facility] Records Lives with: Spouse/Significant other Smoking Status: Current Every Day Smoker Cigarettes Packs Per Day: 2 Passive smoke exposure as: Both Frequency of Alcohol Use: None Hx Recreational Drug Use: No Drugs: None Hx Prescription Drug Abuse: No Do you have pets?: Yes Have you had any respiratory illnesses as a child?: No Have you been exposed to any sick contacts recently?: No Have you had any recent respiratory illnesses?: No Have you travelled outside of [place] in the past 12 months?: No - Advance Directive Resuscitation Status: Full Code Family History Family History: None, CAD, DM, Hypertension, Malignancy Parental Family History Reviewed: Yes Children Family History Reviewed: Yes Sibling(s) Family History Reviewed.: Yes Medication/Allergy Home Medications: Amlodipine Besylate [Norvasc 10 mg Tablet] 10 mg PO DAILY 09/09/19 Aspirin [Ecotrin 81 mg EC Tablet] 81 mg PO DAILY 09/09/19 Docusate Sodium [Colace 100 mg Capsule] 100 mg PO QPM 09/09/19 Dulaglutide [Trulicity] 1.5 mg SQ FR@1000 09/09/19 Furosemide [Lasix 40 mg Tablet] 40 mg PO BID@,15 09/09/19 Gabapentin [Neurontin 300 mg Capsule] 300 mg PO BID@08,14 09/09/19 Gabapentin [Neurontin 300 mg Capsule] 600 mg PO QHS 09/09/19 Lisinopril 20 mg PO Q12 09/09/19 Melatonin [Melatonin 5 mg Tablet] 10 mg PO QHS 09/09/19 Metformin HCl 1,000 mg PO BID 09/09/19 Omeprazole 20 mg PO BID 09/09/19 Pravastatin Sodium [Pravachol] 20 mg PO QHS 09/09/19 Zolpidem Tartrate [Ambien 5 mg Tablet] 5 mg PO HSP PRN 09/09/19 Levalbuterol HCl [Xopenex Neb 1.25 mg/3 ml Ampul] 1.25 mg NEB [id number] PRN 39 Days #90 vial.neb 09/15/19 Levofloxacin [Levaquin 500 mg Tablet] 500 mg PO DAILY #10 tablet 09/15/19 Nicotine [Nicoderm 21 mg/24 Hr Transderm Patch] 1 each TD QPM #30 patch.td24 09/15/19 Allergies/Adverse Reactions: No Known Allergies Allergy (Verified 09/09/19 15:02) Review of Systems All systems: reviewed and no additional remarkable complaints except as stated Physical Exam Vital Signs: Temp Pulse Resp BP Pulse Ox 98.6 F 80 17 131/66 H 99 09/14/19 11:28 09/14/19 11:28 09/14/19 11:28 09/14/19 11:28 09/14/19 11:28 Intake & Output 09/13/19 09/14/19 09/15/19 06:59 06:59 06:59 Intake Total 752 2790 240 Output Total 3900 1400 1500 Balance -3148 1390 -1260 Weight 68.6 kg 66 kg General appearance: PRESENT: no acute distress, cooperative, disheveled, well- developed, well-nourished Head exam: PRESENT: atraumatic, normocephalic Eye exam: PRESENT: conjunctiva pale, EOMI. ABSENT: nystagmus, periorbital swelling, scleral icterus Mouth exam: PRESENT: dry mucosa, neck supple, tongue midline Throat exam: ABSENT: post pharyngeal erythema, tonsillar erythema, tonsillar exudate, tonsillogmegaly, other Neck exam: ABSENT: carotid bruit, full ROM, JVD, lymphadenopathy, meningismus, tenderness, thyromegaly, tracheal deviation, tracheostomy, other Respiratory exam: PRESENT: decreased breath sounds, prolonged expiratory phas, rhonchi, symmetrical, unlabored. ABSENT: retraction, stridor, tachypnea Cardiovascular exam: PRESENT: RRR, +S1, +S2. ABSENT: tachycardia Pulses: PRESENT: normal radial pulses GI/Abdominal exam: PRESENT: soft. ABSENT: guarding, mass, rebound Extremities exam: ABSENT: calf tenderness, clubbing, full ROM, joint swelling Musculoskeletal exam: ABSENT: deformity, dislocation Neurological exam: PRESENT: altered Psychiatric exam: PRESENT: anxious Skin exam: PRESENT: dry, warm Results Laboratory Results: 09/13/19 06:55 09/13/19 06:55 09/09/19 09/09/19 09/10/19 17:51 22:40 04:33 Troponin I 2.860 4.710 10.200 NT-Pro-B Natriuret Pep 6880 H 09/10/19 09/10/19 08:14 20:00 Troponin I 10.800 3.800 NT-Pro-B Natriuret Pep Impressions: Chest/Abdomen CTA 09/09/19 00:00 IMPRESSION: 1. No pulmonary embolism. No aortic aneurysm or dissection. 2. Moderate bilateral pleural effusions with diffuse groundglass opacification suggestive of pulmonary edema. There is more focal consolidation in the lower lobes which may represent atelectasis or more focal bacterial pneumonia. In addition there are scattered groundglass opacification present in a more nodular appearance bilaterally raising the possibility of viral pneumonia. EXAM DESCRIPTION: CT angiogram of the chest CLINICAL HISTORY: 69 years Female; esophageal upper GI bleed. Epigastric pain. TECHNIQUE: CT angiogram of the abdomen and pelvis using intravenous contrast.. MIP reconstructions were performed. Imaging was performed in the arterial, venous and delayed phase. All CT scans at this facility use dose modulation, iterative reconstruction, and/or weight based dosing when appropriate to reduce radiation dose to as low as reasonably achievable. COMPARISON: None. FINDINGS: ABDOMEN: Aorta: Atherosclerotic vascular plaque is identified in the thoracic aorta. No dissection. No aneurysm. Celiac: Normal SMA: Normal Left renal: Normal Right renal: Large volume of plaque is seen at the origin of the renal artery and there is probable narrowing of the right renal artery. Liver: Homogeneous enhancement of the liver is seen. The hepatic arteries are patent. Portal vein is patent. No mass. Gallbladder is unremarkable. No biliary dilatation. Pancreas:Within normal limits Spleen:Within normal limits Kidneys: Kidneys are normal in size shape and position. No stones or hydronephrosis. No acute process. Symmetric renal enhancement is present bilaterally. There is a 10 mm low density area in the left kidney consistent with a simple cyst. Adrenal glands:Within normal limits GI: NG tube is in the stomach. No obvious contrast extravasation is seen into the stomach. There is hyperdense material in the bowel consistent with ingested material. This makes evaluation of hemorrhage into the bowel very limited. There is moderate stool in the colon. No bowel wall thickening. No focal caliber change or inflammation. appendix: The appendix is not clearly seen. Abdominal wall: Unremarkable Retroperitoneal: Small, nonspecific lymph nodes are present in the retroperitoneum. These do not meet size criteria for pathologic process. General: No free air. No free fluid. PELVIS: Right: Arterial phase imaging of the lower abdomen and pelvis was not performed. There is extensive atherosclerotic plaque in the common iliac artery and there may be a high-grade stenosis. Patency is not assessed. Left : Large volume of plaque is seen in the common iliac artery. Patency is not assessed since the pelvis was not imaged in the arterial phase. Bones: Vacuum discs are seen in the lower lumbar spine. No destructive bone lesions. Bladder: A Muñoz catheter is present in the bladder and the bladder is empty. There are small pockets of air in the bladder from the catheter. The superior aspect of the bladder extends towards the umbilicus consistent with a urachal remnant. Pelvis: No pelvic mass or adenopathy. IMPRESSION: 1. No active contrast extravasation is seen. 2. 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 3. No acute process is seen in the abdomen or pelvis. KUB X-Ray 09/09/19 00:00 IMPRESSION: Nasogastric tube tip is in the stomach. Abdomen Ultrasound 09/09/19 15:43 IMPRESSION: NORMAL RIGHT UPPER QUADRANT ULTRASOUND. Abdomen/Pelvis CTA 09/09/19 18:49 IMPRESSION: 1. No pulmonary embolism. No aortic aneurysm or dissection. 2. Moderate bilateral pleural effusions with diffuse groundglass opacification suggestive of pulmonary edema. There is more focal consolidation in the lower lobes which may represent atelectasis or more focal bacterial pneumonia. In addition there are scattered groundglass opacification present in a more nodular appearance bilaterally raising the possibility of viral pneumonia. EXAM DESCRIPTION: CT angiogram of the chest CLINICAL HISTORY: 69 years Female; esophageal upper GI bleed. Epigastric pain. TECHNIQUE: CT angiogram of the abdomen and pelvis using intravenous contrast.. MIP reconstructions were performed. Imaging was performed in the arterial, venous and delayed phase. All CT scans at this facility use dose modulation, iterative reconstruction, and/or weight based dosing when appropriate to reduce radiation dose to as low as reasonably achievable. COMPARISON: None. FINDINGS: ABDOMEN: Aorta: Atherosclerotic vascular plaque is identified in the thoracic aorta. No dissection. No aneurysm. Celiac: Normal SMA: Normal Left renal: Normal Right renal: Large volume of plaque is seen at the origin of the renal artery and there is probable narrowing of the right renal artery. Liver: Homogeneous enhancement of the liver is seen. The hepatic arteries are patent. Portal vein is patent. No mass. Gallbladder is unremarkable. No biliary dilatation. Pancreas:Within normal limits Spleen:Within normal limits Kidneys: Kidneys are normal in size shape and position. No stones or hydronephrosis. No acute process. Symmetric renal enhancement is present bilaterally. There is a 10 mm low density area in the left kidney consistent with a simple cyst. Adrenal glands:Within normal limits GI: NG tube is in the stomach. No obvious contrast extravasation is seen into the stomach. There is hyperdense material in the bowel consistent with ingested material. This makes evaluation of hemorrhage into the bowel very limited. There is moderate stool in the colon. No bowel wall thickening. No focal caliber change or inflammation. appendix: The appendix is not clearly seen. Abdominal wall: Unremarkable Retroperitoneal: Small, nonspecific lymph nodes are present in the retroperitoneum. These do not meet size criteria for pathologic process. General: No free air. No free fluid. PELVIS: Right: Arterial phase imaging of the lower abdomen and pelvis was not performed. There is extensive atherosclerotic plaque in the common iliac artery and there may be a high-grade stenosis. Patency is not assessed. Left : Large volume of plaque is seen in the common iliac artery. Patency is not assessed since the pelvis was not imaged in the arterial phase. Bones: Vacuum discs are seen in the lower lumbar spine. No destructive bone lesions. Bladder: A Muñoz catheter is present in the bladder and the bladder is empty. There are small pockets of air in the bladder from the catheter. The superior aspect of the bladder extends towards the umbilicus consistent with a urachal remnant. Pelvis: No pelvic mass or adenopathy. IMPRESSION: 1. No active contrast extravasation is seen. 2. 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 3. No acute process is seen in the abdomen or pelvis. Chest X-Ray 09/10/19 17:59 IMPRESSION: Congestive heart failure and interstitial pulmonary edema. Bilateral pleural effusions. SUPPORT DEVICE(S) IN EXPECTED LOCATIONS. Assessment & Plan - Diagnosis (1) Acute respiratory failure with hypoxia and hypercapnia Is this a current diagnosis for this admission?: Yes Plan: Generic Name Dose Route Start Last Admin Trade Name Freq PRN Reason Stop Dose Admin Cefepime HCl 2 gm/ Dextrose 50 mls @ 100 mls/hr 09/10/19 08:30 09/14/19 06:28 IV 09/17/19 08:29 100 mls/hr Q12A ANTHONY 100 mls/hr Azithromycin 500 mg/ Dextrose 250 mls @ 250 mls/hr 09/10/19 10:00 09/14/19 11:01 IV 09/17/19 09:59 250 mls/hr DAILY ANTHONY 250 mls/hr Methylprednisolone Sodium Succinate 40 mg 09/11/19 13:00 09/14/19 10:26 Solu-Medrol Inj/Pf 40 Mg/1 Ml Sdv IV 10/11/19 12:59 40 mg Q12 ANTHONY PAO2/FIO2 = 97/.5= 194 09/10/2019 (2) Leukocytosis, unspecified Qualifiers: Leukocytosis type: unspecified Qualified Code(s): D72.829 - Elevated white blood cell count, unspecified Is this a current diagnosis for this admission?: Yes Plan: COVID neg no+culture's WBC decreasing slowly CXRPA&LAT at near baseline (3) Heart failure Qualifiers: Heart failure type: unspecified Heart failure chronicity: unspecified Qualified Code(s): I50.9 - Heart failure, unspecified Is this a current diagnosis for this admission?: Yes Plan: HFnef (4) Tobacco abuse Is this a current diagnosis for this admission?: Yes Plan: Discussed at length risk and dangers associated with continued tobacco use parti cularly while patient is " using oxygen" at home - Time Time Spent with patient: 55
--- NOTE | 2019-09-15 10:49 | PDOC PROGRESS REPORT ---
Subjective Progress Note for:: 09/15/19 Subjective:: Patient seen and examined. Patient is doing well from a respiratory standpoint. No chest pain is reported. Reason For Visit: UGI BLEED,ANEMIA,HYPOXIA Physical Exam Vital Signs: Temp Pulse Resp BP Pulse Ox 98.1 F 75 17 137/53 H 98 09/15/19 07:18 09/15/19 07:18 09/15/19 07:18 09/15/19 07:18 09/15/19 07:18 Intake & Output 09/14/19 09/15/19 09/16/19 06:59 06:59 06:59 Intake Total 2840 2470 Output Total 1400 2600 Balance 1440 -130 Weight 66 kg 68.9 kg General appearance: PRESENT: no acute distress, cooperative, well-developed, well-nourished Head exam: PRESENT: atraumatic, normocephalic Eye exam: PRESENT: conjunctiva pink, EOMI Respiratory exam: PRESENT: decreased breath sounds, prolonged expiratory phas, symmetrical, tachypnea Cardiovascular exam: PRESENT: RRR, +S1, +S2, other - Left upper chest wall pacemaker site is intact GI/Abdominal exam: PRESENT: soft Rectal exam: PRESENT: deferred Neurological exam: PRESENT: alert, awake, oriented to person, oriented to place, oriented to time, oriented to situation Psychiatric exam: PRESENT: appropriate affect Skin exam: PRESENT: dry, intact, normal color Results Laboratory Results: 09/13/19 06:55 09/13/19 06:55 09/10/19 02:20 Blood Blood Culture - Final NO GROWTH IN 5 DAYS 09/09/19 23:40 Blood Blood Culture - Final NO GROWTH IN 5 DAYS 09/09/19 09/09/19 09/10/19 17:51 22:40 04:33 Troponin I 2.860 4.710 10.200 NT-Pro-B Natriuret Pep 6880 H 09/10/19 09/10/19 08:14 20:00 Troponin I 10.800 3.800 NT-Pro-B Natriuret Pep Impressions: Chest/Abdomen CTA 09/09/19 00:00 IMPRESSION: 1. No pulmonary embolism. No aortic aneurysm or dissection. 2. Moderate bilateral pleural effusions with diffuse groundglass opacification suggestive of pulmonary edema. There is more focal consolidation in the lower lobes which may represent atelectasis or more focal bacterial pneumonia. In addition there are scattered groundglass opacification present in a more nodular appearance bilaterally raising the possibility of viral pneumonia. EXAM DESCRIPTION: CT angiogram of the chest CLINICAL HISTORY: 69 years Female; esophageal upper GI bleed. Epigastric pain. TECHNIQUE: CT angiogram of the abdomen and pelvis using intravenous contrast.. MIP reconstructions were performed. Imaging was performed in the arterial, venous and delayed phase. All CT scans at this facility use dose modulation, iterative reconstruction, and/or weight based dosing when appropriate to reduce radiation dose to as low as reasonably achievable. COMPARISON: None. FINDINGS: ABDOMEN: Aorta: Atherosclerotic vascular plaque is identified in the thoracic aorta. No dissection. No aneurysm. Celiac: Normal SMA: Normal Left renal: Normal Right renal: Large volume of plaque is seen at the origin of the renal artery and there is probable narrowing of the right renal artery. Liver: Homogeneous enhancement of the liver is seen. The hepatic arteries are patent. Portal vein is patent. No mass. Gallbladder is unremarkable. No biliary dilatation. Pancreas:Within normal limits Spleen:Within normal limits Kidneys: Kidneys are normal in size shape and position. No stones or hydronephrosis. No acute process. Symmetric renal enhancement is present bilaterally. There is a 10 mm low density area in the left kidney consistent with a simple cyst. Adrenal glands:Within normal limits GI: NG tube is in the stomach. No obvious contrast extravasation is seen into the stomach. There is hyperdense material in the bowel consistent with ingested material. This makes evaluation of hemorrhage into the bowel very limited. There is moderate stool in the colon. No bowel wall thickening. No focal caliber change or inflammation. appendix: The appendix is not clearly seen. Abdominal wall: Unremarkable Retroperitoneal: Small, nonspecific lymph nodes are present in the retroperitoneum. These do not meet size criteria for pathologic process. General: No free air. No free fluid. PELVIS: Right: Arterial phase imaging of the lower abdomen and pelvis was not performed. There is extensive atherosclerotic plaque in the common iliac artery and there may be a high-grade stenosis. Patency is not assessed. Left : Large volume of plaque is seen in the common iliac artery. Patency is not assessed since the pelvis was not imaged in the arterial phase. Bones: Vacuum discs are seen in the lower lumbar spine. No destructive bone lesions. Bladder: A Muñoz catheter is present in the bladder and the bladder is empty. There are small pockets of air in the bladder from the catheter. The superior aspect of the bladder extends towards the umbilicus consistent with a urachal remnant. Pelvis: No pelvic mass or adenopathy. IMPRESSION: 1. No active contrast extravasation is seen. 2. 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 3. No acute process is seen in the abdomen or pelvis. KUB X-Ray 09/09/19 00:00 IMPRESSION: Nasogastric tube tip is in the stomach. Abdomen Ultrasound 09/09/19 15:43 IMPRESSION: NORMAL RIGHT UPPER QUADRANT ULTRASOUND. Abdomen/Pelvis CTA 09/09/19 18:49 IMPRESSION: 1. No pulmonary embolism. No aortic aneurysm or dissection. 2. Moderate bilateral pleural effusions with diffuse groundglass opacification suggestive of pulmonary edema. There is more focal consolidation in the lower lobes which may represent atelectasis or more focal bacterial pneumonia. In addition there are scattered groundglass opacification present in a more nodular appearance bilaterally raising the possibility of viral pneumonia. EXAM DESCRIPTION: CT angiogram of the chest CLINICAL HISTORY: 69 years Female; esophageal upper GI bleed. Epigastric pain. TECHNIQUE: CT angiogram of the abdomen and pelvis using intravenous contrast.. MIP reconstructions were performed. Imaging was performed in the arterial, venous and delayed phase. All CT scans at this facility use dose modulation, iterative reconstruction, and/or weight based dosing when appropriate to reduce radiation dose to as low as reasonably achievable. COMPARISON: None. FINDINGS: ABDOMEN: Aorta: Atherosclerotic vascular plaque is identified in the thoracic aorta. No dissection. No aneurysm. Celiac: Normal SMA: Normal Left renal: Normal Right renal: Large volume of plaque is seen at the origin of the renal artery and there is probable narrowing of the right renal artery. Liver: Homogeneous enhancement of the liver is seen. The hepatic arteries are patent. Portal vein is patent. No mass. Gallbladder is unremarkable. No biliary dilatation. Pancreas:Within normal limits Spleen:Within normal limits Kidneys: Kidneys are normal in size shape and position. No stones or hydronephrosis. No acute process. Symmetric renal enhancement is present bilaterally. There is a 10 mm low density area in the left kidney consistent with a simple cyst. Adrenal glands:Within normal limits GI: NG tube is in the stomach. No obvious contrast extravasation is seen into the stomach. There is hyperdense material in the bowel consistent with ingested material. This makes evaluation of hemorrhage into the bowel very limited. There is moderate stool in the colon. No bowel wall thickening. No focal caliber change or inflammation. appendix: The appendix is not clearly seen. Abdominal wall: Unremarkable Retroperitoneal: Small, nonspecific lymph nodes are present in the retroperitoneum. These do not meet size criteria for pathologic process. General: No free air. No free fluid. PELVIS: Right: Arterial phase imaging of the lower abdomen and pelvis was not performed. There is extensive atherosclerotic plaque in the common iliac artery and there may be a high-grade stenosis. Patency is not assessed. Left : Large volume of plaque is seen in the common iliac artery. Patency is not assessed since the pelvis was not imaged in the arterial phase. Bones: Vacuum discs are seen in the lower lumbar spine. No destructive bone lesions. Bladder: A Muñoz catheter is present in the bladder and the bladder is empty. There are small pockets of air in the bladder from the catheter. The superior aspect of the bladder extends towards the umbilicus consistent with a urachal remnant. Pelvis: No pelvic mass or adenopathy. IMPRESSION: 1. No active contrast extravasation is seen. 2. 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 3. No acute process is seen in the abdomen or pelvis. Chest X-Ray 09/14/19 00:00 IMPRESSION: Extubation with improved bilateral aeration. Trace bilateral effusions. Assessment & Plan - Diagnosis (1) Anemia Qualifiers: Anemia type: unspecified type Qualified Code(s): D64.9 - Anemia, unspecified Is this a current diagnosis for this admission?: Yes Plan: Supportive care. Has responded to blood transfusion Could initiate a trial of low-dose aspirin therapy as an outpatient. (2) Acute respiratory failure with hypoxia and hypercapnia Is this a current diagnosis for this admission?: Yes Plan: Has done well after extubation No respiratory issues today. Longstanding COPD given his long history of tobacco use. Appreciate pulmonary input (3) Elevated troponin I level Is this a current diagnosis for this admission?: Yes Plan: Likely type II myocardial infarction secondary to demand in the face of profound anemia and hypoxemia precipitated by GI bleeding. Underlying atherosclerotic coronary disease is highly likely to be present given risk factors. Once patient stabilizes outpatient ischemic evaluation either by stress test or cardiac catheterization is necessary. This can be arranged once the patient improves. Supportive care given recent non-STEMI with statin and beta-blockers. Aspirin if feasible and if no continued bleeding and if agreeable from a GI standpoint
[2019-09-15] MEDS: AMLODIPINE BESYLATE 10 MG TABLET PO SCH (11:49)
[2019-09-15] MEDS: LISINOPRIL 10 MG TABLET PO SCH (11:49)
[2019-09-15] MEDS: METHYLPREDNISOLONE INJ 40 MG/1 ML SDV IV SCH (11:49)
[2019-09-15] MEDS: ENOXAPARIN SODIUM INJ 40 MG/0.4 ML DISP.SYRIN SUBCUT SCH (11:49)
[2019-09-15] MEDS: FLUTICASONE/VILANTEROL 100-25 MCG/DOSE IH SCH (11:49)
[2019-09-15] MEDS: METOPROLOL SUCCINATE 25 MG TAB.SR.24H PO SCH (11:50)
[2019-09-15 11:56] VITALS: BP 162/88
--- NOTE | 2019-09-15 12:21 | PDOC DISCHARGE SUMMARY ---
Impression - Admit/DC Date/PCP Admission Date/Primary Care Provider: 09/09/19 18:04 EVA SIM PA-C Discharge Date: 09/15/19 - Assessment Summary: 09/14/2019 Patient appears to be medically stable today. Hemo-dynamically stable. Temperature 98.3 pulse 84 and regular blood pressure 148/60 O2 sat 95% on room air CBC is stable hemoglobin is up actually slightly at 10.2 Chemistry shows stable renal functions BUN of 23 creatinine 0.83 glucose levels anywhere from 136 up to 248 COVID testing negative Urine culture 5 days ago was positive for E. coli blood cultures have been negative Sputum shows normal rolf Cardiology has signed off Pulmonology is scheduled to see the patient today for possible new diagnosis of COPD. Patient does have a positive tobacco history Patient is asking to be discharged home [facility], and would like to follow-up as outpatient. I sat down and spoke with the patient in her room for about 15 minutes and she was in no respiratory distress Patient currently on IV cefepime, IV Zithromax, IV vancomycin , IV Solu-Medrol 40 mg every 12 hours, as well as other p.o. meds 09/15/2019-patient is hemodynamically stable pulse ox is 94% on room air. Prescriptions are given for nicotine patch, Xopenex nebulization, levo floxacillin. Cardiology signed off. Pulmonary consult was done for the newly diagnosed COPD. Prescriptions were given for levofloxacin, nicotine patch and Xopenex nebulizations. - Additional Information Resuscitation Status: Full Code Discharge Diet: Diabetic Discharge Activity: Activity As Tolerated Referrals: CHASTITY ALONSO MD [ACTIVE STAFF] - 09/30/19 1:30 pm TINA BOYKIN FNP [NURSE PRACTITIONER] - 09/23/19 10:00 am (This will be a vitual visit....you will receive two emails from the provider.) Prescriptions: Levofloxacin [Levaquin 500 mg Tablet] 500 mg PO DAILY #10 tablet Nicotine [Nicoderm 21 mg/24 Hr Transderm Patch] 1 each TD QPM #30 patch.td24 Levalbuterol HCl [Xopenex Neb 1.25 mg/3 ml Ampul] 1.25 mg NEB RTQ8HP PRN 39 Days #90 vial.neb PRN Reason: Home Medications: Amlodipine Besylate [Norvasc 10 mg Tablet] 10 mg PO DAILY 09/09/19 Aspirin [Ecotrin 81 mg EC Tablet] 81 mg PO DAILY 09/09/19 Docusate Sodium [Colace 100 mg Capsule] 100 mg PO QPM 09/09/19 Dulaglutide [Trulicity] 1.5 mg SQ FR@1000 09/09/19 Furosemide [Lasix 40 mg Tablet] 40 mg PO BID@08,15 09/09/19 Gabapentin [Neurontin 300 mg Capsule] 300 mg PO BID@08,14 09/09/19 Gabapentin [Neurontin 300 mg Capsule] 600 mg PO QHS 09/09/19 Lisinopril 20 mg PO Q12 09/09/19 Melatonin [Melatonin 5 mg Tablet] 10 mg PO QHS 09/09/19 Metformin HCl 1,000 mg PO BID 09/09/19 Omeprazole 20 mg PO BID 09/09/19 Pravastatin Sodium [Pravachol] 20 mg PO QHS 09/09/19 Zolpidem Tartrate [Ambien 5 mg Tablet] 5 mg PO HSP PRN 09/09/19 Levalbuterol HCl [Xopenex Neb 1.25 mg/3 ml Ampul] 1.25 mg NEB RTQ8HP PRN 39 Days #90 vial.neb 09/15/19 Levofloxacin [Levaquin 500 mg Tablet] 500 mg PO DAILY #10 tablet 09/15/19 Nicotine [Nicoderm 21 mg/24 Hr Transderm Patch] 1 each TD QPM #30 patch.td24 09/15/19 History of Present Illiness History of Present Illness: GIN OLIVEROS is a 69 year old female 69-year-old female with hypertension, type 2 diabetes, history of pacemaker for symptomatic bradycardia, and current tobacco abuse who presented to [facility] with complains of epigastric abdominal pain for several days associated with nausea/vomiting x4 days per her . Food makes the pain worse and she has taken Aleve which did not alleviate her pain/symptoms. She has also had black stools for 2-3 days. When combined with anemia upon presentation, there is concern for GI bleeding. She was found to have leukocytosis, lactic acidosis, and elevated troponin on initial lab work, though denies chest pain. She does have SOB, CXR with RLL and infrahilar infiltrate. She was intubated in the emergency room for acute hypoxic/hypercapnic respiratory failure, received 2 PRBC's for Hgb 6, and will be transferred to the ICU. Hospital Course Hospital Course: 69-year-old female came in with planes of epigastric abdominal pain associated with nausea and vomitings and black-colored stools. Patient is still fairly anemic at the time of admission concern is GI bleed. Surgical consult was done at this time and patient received 2 units of PRBC. Patient was admitted to ICU he was intubated at that time. Patient also presented with acute respiratory failure with hypoxia. Patient is successfully extubated under transfer to medical floor. Cardiology consult was done during the hospital stay Dr. Jordin sims plan to see her as an outpatient. Consultation with Dr. Alonso was done for COPD. Hemoglobin is 10.2. Pulse ox is 94% on room air. Patient is expressing desire to go home today. Urine culture is also growing E. coli given a prescription for levofloxacin for few days. Patient is advised to follow-up with primary care physician in few days and also with cardiology and pulmonology in 1 to 2 weeks time. Physical Exam Vital Signs: Temp Pulse Resp BP Pulse Ox 98.1 F 75 17 162/88 H 98 09/15/19 11:52 09/15/19 11:52 09/15/19 11:52 09/15/19 11:52 09/15/19 11:52 Intake & Output 09/14/19 09/15/19 09/16/19 06:59 06:59 06:59 Intake Total 2840 2470 Output Total 1400 2600 Balance 1440 -130 Weight 66 kg 68.9 kg General appearance: PRESENT: no acute distress, thin Head exam: PRESENT: atraumatic Eye exam: PRESENT: PERRLA Mouth exam: PRESENT: moist, tongue midline Teeth exam: PRESENT: poor dentation Neck exam: ABSENT: carotid bruit, JVD, lymphadenopathy, thyromegaly Respiratory exam: PRESENT: decreased breath sounds Cardiovascular exam: PRESENT: RRR. ABSENT: diastolic murmur, rubs, systolic murmur GI/Abdominal exam: PRESENT: normal bowel sounds, soft. ABSENT: distended, guarding, mass, organolmegaly, rebound, tenderness Rectal exam: PRESENT: deferred Extremities exam: PRESENT: full ROM. ABSENT: calf tenderness, clubbing, pedal edema Neurological exam: PRESENT: alert, altered, oriented to person, oriented to place, oriented to time, CN II-XII grossly intact Psychiatric exam: PRESENT: appropriate affect, normal mood. ABSENT: homicidal ideation, suicidal ideation Results Laboratory Results: WBC 13.5 10^3/uL (4.0-10.5) H 09/13/19 06:55 RBC 3.70 10^6/uL (3.72-5.28) L 09/13/19 06:55 Hgb 10.2 g/dL (12.0-15.5) L 09/13/19 06:55 Hct 30.7 % (36.0-47.0) L 09/13/19 06:55 MCV 83 fl (80-97) 09/13/19 06:55 MCH 27.5 pg (27.0-33.4) 09/13/19 06:55 MCHC 33.2 g/dL (32.0-36.0) 09/13/19 06:55 RDW 16.9 % (11.5-14.0) H 09/13/19 06:55 Plt Count 271 10^3/uL (150-450) 09/13/19 06:55 Lymph % (Auto) Not Reportable 09/13/19 06:55 [place] % (Auto) Not Reportable 09/13/19 06:55 Eos % (Auto) Not Reportable 09/13/19 06:55 Baso % (Auto) Not Reportable 09/13/19 06:55 Absolute Neuts (auto) Not Reportable 09/13/19 06:55 Absolute Lymphs (auto) Not Reportable 09/13/19 06:55 Absolute Monos (auto) Not Reportable 09/13/19 06:55 Absolute Eos (auto) Not Reportable 09/13/19 06:55 Absolute Basos (auto) Not Reportable 09/13/19 06:55 Total Counted 100 09/13/19 06:55 Seg Neutrophils % Not Reportable 09/13/19 06:55 Seg Neuts % (Manual) 92 % (42-78) H 09/13/19 06:55 Lymphocytes % (Manual) 6 % (13-45) L 09/13/19 06:55 Monocytes % (Manual) 2 % (3-13) L 09/13/19 06:55 Eosinophils % (Manual) 0 % (0-6) 09/13/19 06:55 Basophils % (Manual) 0 % (0-2) 09/13/19 06:55 Abs Neuts (Manual) 12.4 10^3/uL (1.7-8.2) H 09/13/19 06:55 Abs Lymphs (Manual) 0.8 10^3/uL (0.5-4.7) 09/13/19 06:55 Abs Monocytes (Manual) 0.3 10^3/uL (0.1-1.4) 09/13/19 06:55 Absolute Eos (Manual) 0.0 10^3/uL (0.0-0.6) 09/13/19 06:55 Abs Basophils (Manual) 0.0 10^3/uL (0.0-0.2) 09/13/19 06:55 Platelet Comment ADEQUATE 09/13/19 06:55 Polychromasia 1+ 09/13/19 06:55 Hypochromasia SLIGHT 09/11/19 04:23 Anisocytosis 1+ 09/13/19 06:55 Ovalocytes SLIGHT 09/11/19 04:23 Haptoglobin 179 mg/dL (37-355) 09/10/19 06:20 PT 15.3 SEC (11.4-15.4) 09/09/19 16:47 INR 1.20 09/09/19 16:47 D-Dimer 2.68 ug/mL (0.00-0.50) H 09/10/19 04:05 Carbonic Acid 0.95 mmol/L (1.05-1.35) L 09/12/19 07:45 HCO3/H2CO3 Ratio 24:1 09/12/19 07:45 ABG pH 7.49 (7.35-7.45) H 09/12/19 07:45 ABG pCO2 31.5 mmHg (35-45) L 09/12/19 07:45 ABG pO2 97.1 mmHg (80-100) 09/12/19 07:45 ABG HCO3 23.5 mmol/L (20-24) 09/12/19 07:45 ABG Total CO2 24.4 mmol/L (21-25) 09/12/19 07:45 ABG O2 Saturation 97.9 % (94-98) 09/12/19 07:45 ABG Base Excess 0.5 mmol/L 09/12/19 07:45 FiO2 50% 09/12/19 07:45 Sodium 138.3 mmol/L (137-145) 09/13/19 06:55 Potassium 4.3 mmol/L (3.6-5.0) 09/13/19 06:55 Chloride 103 mmol/L (98-107) 09/13/19 06:55 Carbon Dioxide 27 mmol/L (22-30) 09/13/19 06:55 Anion Gap 8 (5-19) 09/13/19 06:55 BUN 23 mg/dL (7-20) H 09/13/19 06:55 Creatinine 0.83 mg/dL (0.52-1.25) 09/13/19 06:55 Est GFR ( Amer) > 60 (>60) 09/13/19 06:55 Est GFR (MDRD) Non-Af > 60 (>60) 09/13/19 06:55 Glucose 152 mg/dL (75-110) H 09/13/19 06:55 POC Glucose 175 mg/dL (70-110) H 09/15/19 07:19 Lactic Acid 1.4 mmol/L (0.7-2.1) 09/10/19 04:05 Calcium 9.4 mg/dL (8.4-10.2) 09/13/19 06:55 Phosphorus 4.5 mg/dL (2.5-4.5) 09/11/19 04:23 Magnesium 2.2 mg/dL (1.6-2.3) 09/13/19 06:55 Ferritin 8.56 ng/mL (11.1-264.0) L 09/10/19 04:05 Total Bilirubin 0.5 mg/dL (0.2-1.3) 09/09/19 15:52 Direct Bilirubin 0.0 mg/dL (0.0-0.4) 09/09/19 15:52 Neonat Total Bilirubin Not Reportable 09/09/19 15:52 Neonat Direct Bilirubin Not Reportable 09/09/19 15:52 Neonat Indirect Bili Not Reportable 09/09/19 15:52 AST 50 U/L (14-36) H 09/09/19 15:52 ALT 21 U/L (<35) 04/15/20 15:52 Alkaline Phosphatase 79 U/L (38-126) 09/09/19 15:52 Lactate Dehydrogenase 315 U/L (120-246) H 09/10/19 06:20 Troponin I 3.800 ng/mL 09/10/19 20:00 C-Reactive Protein 24.6 mg/L (<10.0) H 09/10/19 04:05 NT-Pro-B Natriuret Pep 6880 pg/mL (<125) H 09/09/19 17:51 Total Protein 7.1 g/dL (6.3-8.2) 09/09/19 15:52 Albumin 4.4 g/dL (3.5-5.0) 09/09/19 15:52 Triglycerides 132 mg/dL (<150) 09/10/19 20:01 Lipase 104.6 U/L (23-300) 09/09/19 15:52 Interleukin 6 26.7 pg/mL (0.0-12.2) H 09/09/19 16:47 Procalcitonin 0.81 ng/mL (0.00-0.08) H 09/09/19 23:20 TSH 3.22 uIU/mL (0.47-4.68) 09/10/19 08:14 Urine Color YELLOW 09/09/19 23:20 Urine Appearance SLIGHTLY-CLOUDY 09/09/19 23:20 Urine pH 5.0 (5.0-9.0) 09/09/19 23:20 Ur Specific [place] 1.016 09/09/19 23:20 Urine Protein 30 mg/dL (NEGATIVE) H 09/09/19 23:20 Urine Glucose (UA) NEGATIVE mg/dL (NEGATIVE) 09/09/19 23:20 Urine Ketones NEGATIVE mg/dL (NEGATIVE) 09/09/19 23:20 Urine Blood NEGATIVE (NEGATIVE) 09/09/19 23:20 Urine Nitrite NEGATIVE (NEGATIVE) 09/09/19 23:20 Urine Bilirubin NEGATIVE (NEGATIVE) 09/09/19 23:20 Urine Urobilinogen NEGATIVE mg/dL (<2.0) 09/09/19 23:20 Ur Leukocyte Esterase NEGATIVE (NEGATIVE) 09/09/19 23:20 Urine WBC (Auto) 8 /HPF 09/09/19 23:20 Urine RBC (Auto) 0 /HPF 09/09/19 23:20 U Hyaline Cast (Auto) 3 /LPF 09/09/19 23:20 Urine Bacteria (Auto) TRACE /HPF 09/09/19 23:20 Squamous Epi Cells Auto <1 /HPF 09/09/19 23:20 Urine Mucus (Auto) RARE /LPF 09/09/19 23:20 Urine Ascorbic Acid NEGATIVE (NEGATIVE) 09/09/19 23:20 Time Trough Drawn 1336 09/13/19 13:36 Vancomycin Trough < 5.0 ug/mL (5.0-20.0) L 09/13/19 13:36 COVID-19 Source NASOPHARYNGEAL 09/10/19 02:20 COVID-19 (BENNY) NOT DETECTED 09/10/19 02:20 Blood Type O POSITIVE 09/09/19 16:39 Blood Type Confirm O POSITIVE 09/09/19 16:47 Antibody Screen NEGATIVE 09/09/19 16:39 Crossmatch See Detail 09/09/19 16:39 09/09/19 09/09/19 09/10/19 17:51 22:40 04:33 Troponin I 2.860 4.710 10.200 NT-Pro-B Natriuret Pep 6880 H 09/10/19 09/10/19 08:14 20:00 Troponin I 10.800 3.800 NT-Pro-B Natriuret Pep Impressions: Chest X-Ray 09/09/19 00:00 IMPRESSION: 1. Cardiomegaly and pulmonary vascular congestion. Mild prominence of the interstitial markings in the lungs may be on the basis of edema. 2. In the right infrahilar region, increased airspace disease may represent infiltrate. Chest/Abdomen CTA 09/09/19 00:00 IMPRESSION: 1. No pulmonary embolism. No aortic aneurysm or dissection. 2. Moderate bilateral pleural effusions with diffuse groundglass opacification suggestive of pulmonary edema. There is more focal consolidation in the lower lobes which may represent atelectasis or more focal bacterial pneumonia. In addition there are scattered groundglass opacification present in a more nodular appearance bilaterally raising the possibility of viral pneumonia. EXAM DESCRIPTION: CT angiogram of the chest CLINICAL HISTORY: 69 years Female; esophageal upper GI bleed. Epigastric pain. TECHNIQUE: CT angiogram of the abdomen and pelvis using intravenous contrast.. MIP reconstructions were performed. Imaging was performed in the arterial, venous and delayed phase. All CT scans at this facility use dose modulation, iterative reconstruction, and/or weight based dosing when appropriate to reduce radiation dose to as low as reasonably achievable. COMPARISON: None. FINDINGS: ABDOMEN: Aorta: Atherosclerotic vascular plaque is identified in the thoracic aorta. No dissection. No aneurysm. Celiac: Normal SMA: Normal Left renal: Normal Right renal: Large volume of plaque is seen at the origin of the renal artery and there is probable narrowing of the right renal artery. Liver: Homogeneous enhancement of the liver is seen. The hepatic arteries are patent. Portal vein is patent. No mass. Gallbladder is unremarkable. No biliary dilatation. Pancreas:Within normal limits Spleen:Within normal limits Kidneys: Kidneys are normal in size shape and position. No stones or hydronephrosis. No acute process. Symmetric renal enhancement is present bilaterally. There is a 10 mm low density area in the left kidney consistent with a simple cyst. Adrenal glands:Within normal limits GI: NG tube is in the stomach. No obvious contrast extravasation is seen into the stomach. There is hyperdense material in the bowel consistent with ingested material. This makes evaluation of hemorrhage into the bowel very limited. There is moderate stool in the colon. No bowel wall thickening. No focal caliber change or inflammation. appendix: The appendix is not clearly seen. Abdominal wall: Unremarkable Retroperitoneal: Small, nonspecific lymph nodes are present in the retroperitoneum. These do not meet size criteria for pathologic process. General: No free air. No free fluid. PELVIS: Right: Arterial phase imaging of the lower abdomen and pelvis was not performed. There is extensive atherosclerotic plaque in the common iliac artery and there may be a high-grade stenosis. Patency is not assessed. Left : Large volume of plaque is seen in the common iliac artery. Patency is not assessed since the pelvis was not imaged in the arterial phase. Bones: Vacuum discs are seen in the lower lumbar spine. No destructive bone lesions. Bladder: A Muñoz catheter is present in the bladder and the bladder is empty. There are small pockets of air in the bladder from the catheter. The superior aspect of the bladder extends towards the umbilicus consistent with a urachal remnant. Pelvis: No pelvic mass or adenopathy. IMPRESSION: 1. No active contrast extravasation is seen. 2. 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 3. No acute process is seen in the abdomen or pelvis. KUB X-Ray 09/09/19 00:00 IMPRESSION: Nasogastric tube tip is in the stomach. Abdomen Ultrasound 09/09/19 15:43 IMPRESSION: NORMAL RIGHT UPPER QUADRANT ULTRASOUND. Abdomen/Pelvis CTA 09/09/19 18:49 IMPRESSION: 1. No pulmonary embolism. No aortic aneurysm or dissection. 2. Moderate bilateral pleural effusions with diffuse groundglass opacification suggestive of pulmonary edema. There is more focal consolidation in the lower lobes which may represent atelectasis or more focal bacterial pneumonia. In addition there are scattered groundglass opacification present in a more nodular appearance bilaterally raising the possibility of viral pneumonia. EXAM DESCRIPTION: CT angiogram of the chest CLINICAL HISTORY: 69 years Female; esophageal upper GI bleed. Epigastric pain. TECHNIQUE: CT angiogram of the abdomen and pelvis using intravenous contrast.. MIP reconstructions were performed. Imaging was performed in the arterial, venous and delayed phase. All CT scans at this facility use dose modulation, iterative reconstruction, and/or weight based dosing when appropriate to reduce radiation dose to as low as reasonably achievable. COMPARISON: None. FINDINGS: ABDOMEN: Aorta: Atherosclerotic vascular plaque is identified in the thoracic aorta. No dissection. No aneurysm. Celiac: Normal SMA: Normal Left renal: Normal Right renal: Large volume of plaque is seen at the origin of the renal artery and there is probable narrowing of the right renal artery. Liver: Homogeneous enhancement of the liver is seen. The hepatic arteries are patent. Portal vein is patent. No mass. Gallbladder is unremarkable. No biliary dilatation. Pancreas:Within normal limits Spleen:Within normal limits Kidneys: Kidneys are normal in size shape and position. No stones or hydronephrosis. No acute process. Symmetric renal enhancement is present bilaterally. There is a 10 mm low density area in the left kidney consistent with a simple cyst. Adrenal glands:Within normal limits GI: NG tube is in the stomach. No obvious contrast extravasation is seen into the stomach. There is hyperdense material in the bowel consistent with ingested material. This makes evaluation of hemorrhage into the bowel very limited. There is moderate stool in the colon. No bowel wall thickening. No focal caliber change or inflammation. appendix: The appendix is not clearly seen. Abdominal wall: Unremarkable Retroperitoneal: Small, nonspecific lymph nodes are present in the retroperitoneum. These do not meet size criteria for pathologic process. General: No free air. No free fluid. PELVIS: Right: Arterial phase imaging of the lower abdomen and pelvis was not performed. There is extensive atherosclerotic plaque in the common iliac artery and there may be a high-grade stenosis. Patency is not assessed. Left : Large volume of plaque is seen in the common iliac artery. Patency is not assessed since the pelvis was not imaged in the arterial phase. Bones: Vacuum discs are seen in the lower lumbar spine. No destructive bone lesions. Bladder: A Muñoz catheter is present in the bladder and the bladder is empty. There are small pockets of air in the bladder from the catheter. The superior aspect of the bladder extends towards the umbilicus consistent with a urachal remnant. Pelvis: No pelvic mass or adenopathy. IMPRESSION: 1. No active contrast extravasation is seen. 2. 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 3. No acute process is seen in the abdomen or pelvis. Chest X-Ray 09/10/19 17:04 IMPRESSION: 1. Interval worsening in the appearance of the lungs since the prior study dated 09/09/2019. Interval progression of pulmonary vascular congestion, interstitial edema. Small bilateral pleural effusions. 2. Interval placement of right internal jugular venous catheter with the tip in the region of the superior vena cava. No pneumothorax. 3. Right infrahilar opacity, unchanged in appearance, infiltrate not entirely excluded. Chest X-Ray 09/10/19 17:59 IMPRESSION: Congestive heart failure and interstitial pulmonary edema. Bilateral pleural effusions. SUPPORT DEVICE(S) IN EXPECTED LOCATIONS. Chest X-Ray 09/14/19 00:00 IMPRESSION: Extubation with improved bilateral aeration. Trace bilateral effusions. Plan Time Spent: Greater than 30 Minutes Stroke Is this a Stroke Patient?: No Acute Heart Failure - Is this a Heart Failure Patient?: No
== END 2019-09-15 12:45 | disposition home or self-care (01) | DRG 208 ==
LOC: ER 14:52 → EH 18:04 → ICU 23:05 → 3S 09-13 12:03
PROVIDERS: ADMIT Internal Medicine Critical Care Medicine; ATTEND Internal Medicine
PROC: 5A1945Z Respiratory Ventilation, 24-96 Consecutive Hours (ICD-10-PCS; principal; 2019-09-09)
PROC: 03HB33Z Insertion of Infusion Device into Right Radial Artery, Percutaneous Approach (ICD-10-PCS; 2019-09-09)
PROC: 0BH17EZ Insertion of Endotracheal Airway into Trachea, Via Natural or Artificial Opening (ICD-10-PCS; 2019-09-09)
PROC: 02HV33Z Insertion of Infusion Device into Superior Vena Cava, Percutaneous Approach (ICD-10-PCS; 2019-09-09)
PROC: 30233N1 Transfusion of Nonautologous Red Blood Cells into Peripheral Vein, Percutaneous Approach (ICD-10-PCS; 2019-09-09)
PROC: 0BH17EZ Insertion of Endotracheal Airway into Trachea, Via Natural or Artificial Opening (ICD-10-PCS; 2019-09-10)
PROC: 5A1945Z Respiratory Ventilation, 24-96 Consecutive Hours (ICD-10-PCS; 2019-09-10)
DX: J96.01 Acute respiratory failure with hypoxia (principal); J44.1 Chronic obstructive pulmonary disease with (acute) exacerbation; N39.0 Urinary tract infection, site not specified; E87.2 Acidosis; I31.3 Pericardial effusion (noninflammatory); K92.2 Gastrointestinal hemorrhage, unspecified; D64.9 Anemia, unspecified; J96.02 Acute respiratory failure with hypercapnia; I10 Essential (primary) hypertension; E11.65 Type 2 diabetes mellitus with hyperglycemia; B96.20 Unspecified Escherichia coli [E. coli] as the cause of diseases classified elsewhere; F17.210 Nicotine dependence, cigarettes, uncomplicated; Z95.0 Presence of cardiac pacemaker; Z03.818 Encounter for observation for suspected exposure to other biological agents ruled out; R79.89 Other specified abnormal findings of blood chemistry; Z90.710 Acquired absence of both cervix and uterus; Z79.82 Long term (current) use of aspirin; Z79.84 Long term (current) use of oral hypoglycemic drugs; Z79.899 Other long term (current) drug therapy; Z78.1 Physical restraint status
CPT/HCPCS: 31500; 36415; 36430; 36556; 36620; 71045; 71046; 71275; 74018; 74174; 76705; 80048; 80053; 80202; 81001; 82728; 82803; 82962; 83010; 83520; 83605; 83615; 83690; 83735; 83880; 84100; 84145; 84443; 84478; 84484; 85025; 85379; 85610; 86140; 86850; 86900; 86901; 86920; 87040; 87070; 87086; 87088; 87186; 87205; 87252; 87635; 93005; 93010; 93306; 94002; 94003; 94660; 94799; 96361; 96374; 96375; 99233; 99291; 99292; C9113; J0330; J0456; J0692; J1170; J1650; J1815; J1885; J1940; J2185; J2250; J2260; J2405; J2704; J2920; J2930; J3010; J3370; J3490; J7030; J7060; P9016